=== PATIENT | female | born 1995 | race Two or more races ===

== ENCOUNTER 2020-10-25 17:15 | Emergency (ER) | payer OTHER, SELFPAY ==
[2020-10-25 17:55] VITALS: BP 130/68; PULSE 91; RESP 16; TEMP 36.4; O2SAT 100; BMI 28.3
--- NOTE | 2020-10-25 18:00 | US_ITS ---
EXAMINATION: US VENOUS ULTRASOUND WITH DOPPLER LOWER EXTREMITY, RIGHT CLINICAL INFORMATION: Pain. COMPARISON: None TECHNIQUE: Ultrasound of the deep veins is performed from the hip to the calf with compression sonography and color and pulse Doppler assessment. Spectral analysis with color-flow imaging is performed. FINDINGS: There is normal venous compression and respiratory variation and augmented flow. The visualized common femoral vein, superficial femoral vein, profunda femoral vein, popliteal vein, and the trifurcation region shows no evidence of deep venous thrombosis. There is no significant popliteal fossa cyst. If the patient's symptoms persist, followup ultrasound in 5 days 7 days might be of value to exclude proximal propagation from a non-visualized calf vein. US/US venous duplex LE RT IMPRESSION: No DVT demonstrated in the right lower extremity.
--- NOTE | 2020-10-25 18:00 | XR_ITS ---
EXAMINATION: 4 right foot series. Right ankle series. CLINICAL INFORMATION: Pain. COMPARISON: None TECHNIQUE: 4 views of the right foot including the ankle. 2 additional views of the right ankle. FINDINGS: Right foot: The bones joints and soft tissues are normal without fracture or degenerative change. Right ankle: Subtle lucency noted in the medial talar dome. Bones joints and soft tissues otherwise unremarkable. XR/XR foot RT min 3V IMPRESSION: Subtle lucency in the medial talar dome. This could reflect an area of osteochondritis dissecans. Consider follow-up imaging with MRI if felt clinically appropriate to more fully characterize
--- NOTE | 2020-10-25 18:00 | XR_ITS ---
EXAMINATION: 4 right foot series. Right ankle series. CLINICAL INFORMATION: Pain. COMPARISON: None TECHNIQUE: 4 views of the right foot including the ankle. 2 additional views of the right ankle. FINDINGS: Right foot: The bones joints and soft tissues are normal without fracture or degenerative change. Right ankle: Subtle lucency noted in the medial talar dome. Bones joints and soft tissues otherwise unremarkable. XR/XR ankle RT min 3V IMPRESSION: Subtle lucency in the medial talar dome. This could reflect an area of osteochondritis dissecans. Consider follow-up imaging with MRI if felt clinically appropriate to more fully characterize
--- NOTE | 2020-10-25 19:19 | ED.LOWEXIN ---
HPI - Extremity Injury (Lower) General Chief Complaint: Extremity Injury, Lower Stated Complaint: FOOT PAIN Time Seen by Provider: 10/25/20 18:00 Source: patient Mode of arrival: ambulatory Limitations: no limitations History of Present Illness HPI Narrative: Right ankle /foot pain radiating to the calf pain for past several weeks initially injured during fall at home [address]: home Relieving factors: nothing Other symptoms: none Related Data Previous Rx's Medication Instructions Recorded cyclobenzaprine 5 mg PO TID PRN #15 tab 10/25/20 ibuprofen 800 mg PO Q8H PRN #20 tab 10/25/20 methylprednisolone [Medrol] 4 mg PO DAILY #7 tab 10/25/20 Allergies Allergy/AdvReac Type Severity Reaction Status Date / Time No Known Allergies Allergy Verified 10/25/20 19:48 [No Known Allergies*] Review of Systems Review of Systems: Constitutional: No Weight loss, No Fever, No Chills, No Night Sweats, No Fatigue, No Malaise ENT/Mouth: No Hearing loss, No Ear Pain, No Nasal Congestion, No Sinus Pain Eyes: No Eye Pain, No Swelling, No Redness, No Foreign Body, No Discharge, No Vision Changes Cardiovascular: No Chest Pain, No SOB, No Dyspnea on Exertion, No Orthopnea, No Edema, No Palpitations Respiratory: No Cough, No Sputum, No Wheezing, No Smoke Exposure, No Dyspnea Gastrointestinal: No abdominal Pain Genitourinary: no irregular bleeding, No Dysuria, No Urinary Frequency, No Hematuria Musculoskeletal: No joint pain, No Myalgias, No Joint Swelling Skin: No Skin Lesions, No rash Neuro: No Weakness, No Numbness, No Paresthesias, No Loss of Consciousness Psych: No Social Issues Heme/Lymph: No Bruising, No Bleeding,No Lymphadenopathy Endocrine: No Polyuria, No Polydipsia, No Temperature Intolerance Yes all other systems are reviewed and are negative [facility] Past Medical History Medical History No known health problems Social History Social History Smoking Status: Never smoker Use of substances other than those prescribed or required for medical reasons: No Advance Directives: No Advance Directives Information Provided: Yes Physical Exam Vital Signs: Vital Signs: Last Vital Signs Temp 97.6 F 10/25/20 17:55 Pulse 80 10/25/20 19:33 Resp 16 10/25/20 19:33 BP 122/70 10/25/20 19:33 Pulse Ox 100 10/25/20 19:33 Body Mass Index 28.3 Reviewed Const: General: cooperative and healthy appearing; No acute distress or intoxicated appearing Nutritional Appearance: average body habitus Orientation/consciousness: patient oriented x3 HENMT: Head: Yes normal to inspection Ears: hearing grossly normal bilaterally Chest: Chest palpation & inspection: normal inspection of the chest Resp: Effort & Inspection: normal respiratory effort Cardio: Jugular venous distension: no JVD : General: Yes no CVA tenderness Back/Spine/Pelvis: Back: no CVA tenderness Skin: General skin exam: no rashes or lesions noted Neuro: General: patient oriented x3 Extrem: Other: Slight diffuse tender palpation not specifically over the ankle joint without any obvious ecchymosis, swelling, erythema. Full range of motion. Does report the pain radiates to the mid posterior calf. Squeeze test within normal limits. Positive Homans. General: Yes normal to inspection Course Course Course Narrative: X-ray chest ultrasound findings reviewed. Ernst wrap to right lower extremity will follow-up with orthopedics. MDM - Extremity Injury (Lower) Imaging Data Right lower extremity ultrasound: Radiologist's impression: [place] [id number] Ultrasound Report Signed Patient: Tyree Pham#: [id number] : 1995Acct:[id number] Age/Sex: 25 / FADM Date: 10/25/20 Loc: HO.ED Attending Dr: Ordering Physician: Scott Delacruz NP Date of Service: 10/25/20 Procedure(s): US venous duplex LE RT Accession Number(s): [id number] cc: Scott Delacruz NP~ EXAMINATION: US VENOUS ULTRASOUND WITH DOPPLER LOWER EXTREMITY, RIGHT CLINICAL INFORMATION: Pain. COMPARISON: None TECHNIQUE: Ultrasound of the deep veins is performed from the hip to the calf with compression sonography and color and pulse Doppler assessment. Spectral analysis with color-flow imaging is performed. FINDINGS: There is normal venous compression and respiratory variation and augmented flow. The visualized common femoral vein, superficial femoral vein, profunda femoral vein, popliteal vein, and the trifurcation region shows no evidence of deep venous thrombosis. There is no significant popliteal fossa cyst. If the patient's symptoms persist, followup ultrasound in 5 days 7 days might be of value to exclude proximal propagation from a non-visualized calf vein. US/US venous duplex LE RT IMPRESSION: No DVT demonstrated in the right lower extremity. Dictated By:JOSH JOHNSON MD Signed By:<Electronically signed by JOSH JOHNSON MD in OV>10/25/20 1855 DD/ 1800 TD/TT: Pharmacist Helper: TANYA right foot/ ankle x-ray: Radiologist's impression: [place] [id number] [place] [address] XRay Report Signed Patient: Tyree Pham#: [id number] : 1995Acct:[id number] Age/Sex: 25 / FADM Date: 10/25/20 Loc: .ED Attending Dr: Ordering Physician: Scott Delacruz NP Date of Service: 10/25/20 Procedure(s): XR foot RT min 3V Accession Number(s): [id number] cc: Scott Delacruz RATE AND COST ANALYST~ EXAMINATION: 4 right foot series. Right ankle series. CLINICAL INFORMATION: Pain. COMPARISON: None TECHNIQUE: 4 views of the right foot including the ankle. 2 additional views of the right ankle. FINDINGS: Right foot: The bones joints and soft tissues are normal without fracture or degenerative change. Right ankle: Subtle lucency noted in the medial talar dome. Bones joints and soft tissues otherwise unremarkable. XR/XR foot RT min 3V IMPRESSION: Subtle lucency in the medial talar dome. This could reflect an area of osteochondritis dissecans. Consider follow-up imaging with MRI if felt clinically appropriate to more fully characterize Dictated By:DANE RADFORD MD Signed By:<Electronically signed by DANE RADFORD MD in OV>10/25/20 1816 DD/ 1800 TD/TT: Pharmacist Helper: EBONY Discharge Plan Discharge Clinical Impression: Ankle sprain and strain Patient Disposition: Home, Self-Care Instructions: Ankle Sprain (ED) Additional Instructions: Ernst wrap for comfort Ice Elevate Take medication prescribed Follow-up with Orthopedics as discussed Return if any concerns or worsening symptoms Thank you Prescriptions: New cyclobenzaprine 10 mg tablet 5 mg PO TID PRN (Reason: muscle spasm) Qty: 15 RF: 0 methylprednisolone [Medrol] 4 mg tablet 4 mg PO DAILY Qty: 7 RF: 0 ibuprofen 800 mg tablet 800 mg PO Q8H PRN (Reason: pain) Qty: 20 RF: 0 Referrals: Marino Mcconnell MD [Physician] - 1 week Interventions: ED Discharge Assessment Last Done: 10/25/20 19:52 Discharge Date/Time: 10/25/20 19:53
[2020-10-25 19:33] VITALS: BP 122/70; PULSE 80; RESP 16; O2SAT 100
== END 2020-10-25 19:53 | disposition home or self-care (01) ==
PROVIDERS: Emergency Provider Internal Medicine; PCP Internal Medicine
DX: M79.671 Pain in right foot (principal); R60.0 Localized edema; Z79.899 Other long term (current) drug therapy
CPT/HCPCS: 73610; 73630; 93971; 99283

== ENCOUNTER 2020-10-27 14:29 | Outpatient (REF) | payer OTHER, SELFPAY ==
[2020-10-28 08:47] LABS: ~Hepatitis C Antibody Nonreactive (Nonreactive)
[2020-10-28 09:20] LABS: Syphilis Screen Nonreactive (Nonreactive)
[2020-10-28 09:32] LABS: HBsAGNum1 0.27 S/CO (0.00-0.99); HIV AB/AG Nonreactive (Nonreactive); HIV Num 1 0.09 S/CO (0.00-0.99); Hepatitis B Surface Antigen Negative (Negative)
[2020-11-25 16:14] LABS: CT PCR NOT DETECTED (Not Detect.); NG PCR NOT DETECTED (Not Detect.)
== END 2020-10-27 14:30 | disposition home or self-care (01) ==
LOC: HO.LAB 14:29
PROVIDERS: PCP Internal Medicine; Visit Provider Advanced Practice Midwife
DX: Z20.2 Contact with and (suspected) exposure to infections with a predominantly sexual mode of transmission (principal)
CPT/HCPCS: 86780; 86803; 87340; 87389; 87491; 87591; 88142

== ENCOUNTER 2020-11-25 10:01 | Outpatient (REF) | payer OTHER, SELFPAY ==
--- NOTE | 2020-11-25 10:05 | XR_ITS ---
EXAMINATION: XR ANKLE, RIGHT CLINICAL INFORMATION: Screening COMPARISON: Previous x-ray 10/25/2020 TECHNIQUE: AP, lateral, and mortise views of the right ankle. FINDINGS: Bone alignment is normal. No fracture or dislocation is seen. There is a small lucency in the medial talar dome measuring approximately 4 x 8 mm questionable for osteochondritis desiccans. This is similar to previous x-ray. Ankle mortise is otherwise normal. Soft tissues are normal. XR/XR ankle RT min 3V IMPRESSION: Small lucency in the medial dome of the talus again questionable for osteochondritis dissecans. Otherwise unremarkable exam.
== END 2020-11-25 10:02 | disposition home or self-care (01) ==
LOC: HO.XRAY 10:01
PROVIDERS: PCP Internal Medicine; Visit Provider Physician Assistant
DX: S93.401A Sprain of unspecified ligament of right ankle, initial encounter (principal)
CPT/HCPCS: 73610; 99202

== ENCOUNTER → 2020-12-09 16:09 | Outpatient (BNVA) | payer OTHER, SELFPAY | PROVIDERS: PCP Internal Medicine; Visit Provider Advanced Practice Midwife | DX: Z13.89 Encounter for screening for other disorder (principal) | CPT/HCPCS: 99212 ==

== ENCOUNTER 2020-12-26 17:53 | Outpatient (REF) | payer OTHER, SELFPAY ==
--- NOTE | ~2020-12-26 | MR_ITS ---
EXAMINATION: MRI ANKLE WITHOUT CONTRAST, RIGHT CLINICAL INFORMATION: Right ankle pain and swelling for 2 months. Injury after falling down stairs. Sprain of unspecified right ankle ligament. COMPARISON: None. TECHNIQUE: Multisequence MR images of the right ankle were obtained without contrast on a high-field strength scanner. FINDINGS: BONE AND ARTICULAR CARTILAGE: Full-thickness articular cartilage fissuring at the medial aspect of the talar dome with focal delamination measuring up to 0.6 cm in ML dimension. Prominent underlying subchondral cystic change and associated marrow edema throughout the talus. No evidence of fragmentation or instability. No additional abnormal marrow signal. ACHILLES TENDON: Normal. OTHER TENDONS: Intact. LIGAMENTS: Intact. JOINT FLUID AND SOFT TISSUES: Small tibiotalar joint effusion. Subcutaneous soft tissues are unremarkable. PLANTAR FASCIA: Normal. SINUS TARSI AND TARSAL TUNNEL: Normal. MR/MR ankle RT wo con IMPRESSION: Osteochondral lesion at the medial aspect of the talar dome including full-thickness articular cartilage fissuring with delamination measuring 0.6 cm in ML dimension. Underlying subchondral cystic change and associated marrow edema within the talus. No evidence of fragmentation or instability. Small tibiotalar joint effusion.
== END 2020-12-26 17:54 | disposition home or self-care (01) ==
LOC: HO.MRI 17:53
PROVIDERS: Visit Provider Physician Assistant
DX: S93.401A Sprain of unspecified ligament of right ankle, initial encounter (principal)
CPT/HCPCS: 73721

== ENCOUNTER → 2021-01-19 14:40 | Outpatient (BNVA) | payer OTHER, SELFPAY | PROVIDERS: PCP Internal Medicine; Visit Provider Physician Assistant | DX: M89.9 Disorder of bone, unspecified (principal); M94.9 Disorder of cartilage, unspecified | CPT/HCPCS: 99212 ==

== ENCOUNTER 2021-08-03 09:24 | Emergency (ER) | payer OTHER, SELFPAY ==
--- NOTE | ~2021-08-03 | US_ITS ---
EXAMINATION: US ABDOMEN LIMITED CLINICAL INFORMATION: Right upper quadrant and epigastric pain. COMPARISON: None TECHNIQUE: Real-time imaging of the right upper quadrant abdominal viscera. FINDINGS: PANCREAS: Normal. LIVER: Normal. The liver is normal in size. The liver contour is normal. Parenchymal echogenicity is normal. No focal hepatic lesion. There is no intrahepatic biliary duct dilatation seen. GALLBLADDER: Normal. The gallbladder is physiologically distended without evidence of stones, sludge, polyps, wall thickening or pericholecystic fluid. COMMON BILE DUCT: Normal in caliber measuring 0.6 cm in diameter. RIGHT KIDNEY: Normal. No hydronephrosis. No renal calculi or focal parenchymal lesions. The kidney measures 11 cm in maximum dimension. FREE FLUID: None. US/US abdomen limited IMPRESSION: Normal right upper quadrant ultrasound.
[2021-08-03 09:28] VITALS: BP 117/73; PULSE 105; RESP 12; TEMP 37; O2SAT 98; BMI 28.4
--- NOTE | 2021-08-03 09:34 | ED.ABDPAIN ---
HPI - Abdominal Pain General Chief Complaint: Abdominal Pain Stated Complaint: abd pain, vomiting Time Seen by Provider: 08/03/21 09:34 Source: patient Mode of arrival: ambulatory Limitations: no limitations History of Present Illness MD elicited complaint: abdominal pain Pertinent past history: none Onset (ago): day(s) (1) Pain Consistency: constant Location: epigastric and RUQ Severity: moderate Quality: cramping Radiation: none Migration to: no migration Exacerbating factors: eating Relieving factors: nothing Context: possible food poisoning (started after eating [employer]) Associated symptoms: nausea, vomiting and diarrhea Related Data Home Medications Medication Instructions Recorded Confirmed norgestimate 0.25 mg-ethinyl 1 tab PO DAILY 08/02/21 08/02/21 estradiol 35 mcg tablet (Sprintec (28)) Previous Rx's Medication Instructions Recorded citalopram 10 mg tablet 10 mg PO DAILY 30 Days #30 tab 08/02/21 ondansetron 4 mg disintegrating 4 mg PO Q8H PRN #20 tab 08/03/21 tablet Allergies Allergy/AdvReac Type Severity Reaction Status Date / Time No Known Allergies Allergy Verified 08/03/21 09:28 [No Known Allergies*] Review of Systems Review of Systems Constitutional : No Weight loss, No Fever, No Chills ENT/Mouth : No sore throat, No Rhinorrhea Eyes: No Swelling, No Redness Cardiovascular : No Chest Pain, No SOB, NoEdema Respiratory : No Cough, No Sputum, No Wheezing Gastrointestinal : Positive Nausea, Positive Vomiting, positive Diarrhea, positive abdominal Pain, No Hematochezia, No Melena Genitourinary : No Dysuria, No Urinary Frequency, No Hematuria, No Urgency Musculoskeletal : No joint pain, No Myalgias, No Joint Swelling Skin : No Skin Lesions, No rash Neuro : No Weakness, No Numbness, No Dizziness, No Headache Psych : No Anxiety/Panic, No Depression Heme/Lymph: No Bruising, No Lymphadenopathy Endocrine : No Polyuria, No Polydipsia All other systems reviewed and are negative. Physical Exam Vital Signs: Vital Signs: Last Vital Signs Temp 96.8 F 08/03/21 10:44 Pulse 81 08/03/21 10:44 Resp 15 08/03/21 10:44 BP 118/66 08/03/21 10:44 Pulse Ox 98 08/03/21 10:44 Body Mass Index 28.4 Appearance: Alert. Oriented X3. No acute distress. Eyes: Pupils equal, round and reactive to light. ENT: Pharynx normal. Neck: Normal inspection. Neck supple. CVS: Normal heart rate and rhythm. Pulses normal. Respiratory: No respiratory distress. Breath sounds normal. Abdomen: Soft and moderate RUQ ttp + contreras's no rebound Skin: Skin warm and dry. Normal skin color. Normal skin turgor. Extremities: No lower extremity edema. No calf ttp Neuro: Oriented X 3. No motor deficit. No sensory deficit. Course Course Course Narrative: labs negative stable workup can be DC home MDM - Abdominal Pain MDM Narrative Medical decision making narrative: 25 yo female with no sig PMH here with RUQ pain n/v/d after eating [employer] yesterday - at this time will need labs, IVF, supportive medications, US to evaluate GB - dispo per results and findings. Lab Data Result diagrams: 08/03/21 09:46 08/03/21 11:11 Labs: Lab Results 08/03/21 08/03/21 08/03/21 Range/Units 09:46 09:56 10:56 WBC 11.4 H (4.8-10.8) X10*3/uL RBC 4.50 (4.20-5.50) X10*6/uL Hgb 13.7 (12.0-16.0) g/dl Hct 40.9 (37-47) % MCV 90.9 (80-98) fL MCH 30.4 (27.0-33.0) pg MCHC 33.5 (31.0-35.0) g/dl RDW 12.4 (11.0-16.0) % Plt Count 243 (160-400) X10*3/uL MPV 11.3 (9.4-12.3) fL Immature Gran % (Auto) 0.4 (0.0-0.4) % Neut % (Auto) 88.1 H (45-73) % Lymph % (Auto) 6.3 L (20-40) % [place] % (Auto) 4.9 (2-11) % Eos % (Auto) 0.2 (0-4) % Baso % (Auto) 0.1 (0-2) % Lymph # (Auto) 0.7 L (1.2-4.9) X10*3/uL [place] # (Auto) 0.6 (0.1-1.2) X10*3/uL Eos # (Auto) 0.0 (0.0-0.4) X10*3/uL Baso # (Auto) 0.0 (0.0-0.2) X10*3/uL Abs Immat Gran (auto) 0.04 H (0.00-0.03) X10*3/uL Absolute Neuts (auto) 10.1 H (2.0-8.3) X10*3/uL Absolute Nucleated RBC 0.000 (0.0-0.012) X10*3/uL Nucleated RBC % (auto) 0.0 (0.0-0.2) /100WBC Sodium (135-145) mmol/L Potassium (3.3-5.1) mmol/L Chloride (96-108) mmol/L Carbon Dioxide (22-29) mmol/L Anion Gap (12-20) BUN (9-16) mg/dL Creatinine (0.5-1.4) mg/dL Estim Creat Clear Calc Estimated GFR Random Glucose (60-115) mg/dL Calcium (8.4-10.2) mg/dL Magnesium (1.6-2.6) mg/dL Total Bilirubin (0.0-1.0) mg/dL Direct Bilirubin (0.0-0.5) mg/dL AST (5-31) U/L ALT (0-31) U/L Alkaline Phosphatase (39-117) U/L Total Protein (6.5-8.0) g/dL Albumin (3.5-5.0) g/dL Lipase (8-78) U/L Urine Color YELLOW Urine Appearance HAZY Urine pH 6.5 (5.0-8.0) Ur Specific [place] <= 1.005 (1.005-1.025) Urine Protein NEG (NEG-TRACE) MG/DL Urine Glucose (UA) NEG (NEG) MG/DL Urine Ketones NEG (NEG) MG/DL Urine Blood NEG (NEG) Urine Nitrite NEG (NEG) Ur Leukocyte Esterase TRACE H (NEG) Urine RBC 0 (0) /HPF Urine WBC 1-4 (0-4) /HPF Ur Squamous Epith Cells 2+ /LPF Urine Bacteria 1+ /LPF Urine Mucus 1+ /LPF Urine Test (NEGATIVE) COVID-19 (MELISSA) Negative (Negative) COVID-19 Clin Com See Note 08/03/21 08/03/21 Range/Units 10:56 11:11 WBC (4.8-10.8) X10*3/uL RBC (4.20-5.50) X10*6/uL Hgb (12.0-16.0) g/dl Hct (37-47) % MCV (80-98) fL MCH (27.0-33.0) pg MCHC (31.0-35.0) g/dl RDW (11.0-16.0) % Plt Count (160-400) X10*3/uL MPV (9.4-12.3) fL Immature Gran % (Auto) (0.0-0.4) % Neut % (Auto) (45-73) % Lymph % (Auto) (20-40) % [place] % (Auto) (2-11) % Eos % (Auto) (0-4) % Baso % (Auto) (0-2) % Lymph # (Auto) (1.2-4.9) X10*3/uL [place] # (Auto) (0.1-1.2) X10*3/uL Eos # (Auto) (0.0-0.4) X10*3/uL Baso # (Auto) (0.0-0.2) X10*3/uL Abs Immat Gran (auto) (0.00-0.03) X10*3/uL Absolute Neuts (auto) (2.0-8.3) X10*3/uL Absolute Nucleated RBC (0.0-0.012) X10*3/uL Nucleated RBC % (auto) (0.0-0.2) /100WBC Sodium 136 (135-145) mmol/L Potassium 3.9 (3.3-5.1) mmol/L Chloride 104 (96-108) mmol/L Carbon Dioxide 25 (22-29) mmol/L Anion Gap 11 L (12-20) BUN 10 (9-16) mg/dL Creatinine 0.86 (0.5-1.4) mg/dL Estim Creat Clear Calc 102.0 Estimated GFR > 60 Random Glucose 113 (60-115) mg/dL Calcium 8.3 L (8.4-10.2) mg/dL Magnesium 1.6 (1.6-2.6) mg/dL Total Bilirubin 0.8 (0.0-1.0) mg/dL Direct Bilirubin 0.3 (0.0-0.5) mg/dL AST 9 (5-31) U/L ALT 11 (0-31) U/L Alkaline Phosphatase 27 L (39-117) U/L Total Protein 6.3 L (6.5-8.0) g/dL Albumin 4.0 (3.5-5.0) g/dL Lipase 31 (8-78) U/L Urine Color Urine Appearance Urine pH (5.0-8.0) Ur Specific [place] (1.005-1.025) Urine Protein (NEG-TRACE) MG/DL Urine Glucose (UA) (NEG) MG/DL Urine Ketones (NEG) MG/DL Urine Blood (NEG) Urine Nitrite (NEG) Ur Leukocyte Esterase (NEG) Urine RBC (0) /HPF Urine WBC (0-4) /HPF Ur Squamous Epith Cells /LPF Urine Bacteria /LPF Urine Mucus /LPF Urine Test NEGATIVE (NEGATIVE) COVID-19 (MELISSA) (Negative) COVID-19 Clin Com Discharge Plan Discharge Clinical Impression: Abdominal pain Qualifiers: Abdominal location: epigastric Qualified Code(s): R10.13 - Epigastric pain Vomiting Qualifiers: Vomiting type: unspecified Vomiting Intractability: non-intractable Nausea presence: with nausea Qualified Code(s): R11.2 - Nausea with vomiting, unspecified Patient Disposition: Home, Self-Care Instructions: Acute Nausea and Vomiting (ED), Abdominal Pain (ED) Additional Instructions: return to ED for any worsening symptoms or concerns bland foods, stay hydrated, avoid dairy for 2 to 3 days Prescriptions: New ondansetron 4 mg tablet,disintegrating 4 mg PO Q8H PRN (Reason: nausea and vomiting) Qty: 20 RF: 0 No Action norgestimate-ethinyl estradiol [Sprintec (28)] 0.25-35 mg-mcg tablet 1 tab PO DAILY RF: 0 citalopram 10 mg tablet 10 mg PO DAILY 30 Days Qty: 30 RF: 2 Stand Alone Forms: Work/School Release Interventions: ED Discharge Assessment Last Done: 08/03/21 12:15 Discharge Date/Time: 08/03/21 12:16 [facility] Past Medical History Attestation statement: The following information was validated with the patient. Medical History Anxiety Overweight (BMI 25.0-29.9) Surgical History History of tonsillectomy Family History Family History Maternal Grandmother Breast cancer Father Medical history unknown Mother Medical history unknown Maternal Grandfather No problems noted. Paternal Grandfather Cancer Brother In good health Brother In good health Social History Social History Housing: House Alcohol intake: never Patient Tobacco Use Status: Never used Tobacco Second Hand Smoke Exposure: No Use of substances other than those prescribed or required for medical reasons: No Advance Directives: No Patient : No service: No Current occupational status: employed Current occupation: [employer] Sexual orientation: Straight/Heterosexual Gender identity: Female
[2021-08-03 09:49] LABS: MANUAL DIFF FLAG NO
[2021-08-03] MEDS: 0.9 % Sodium Chloride 1,000 ML 999 ML IVCONT (09:52)
[2021-08-03] MEDS: Ketorolac Tromethamine 15 MG/ML VIAL 30 MG IVPUSH (09:53)
[2021-08-03] MEDS: ondansetron HCL 4 MG/2 ML VIAL IVPUSH (09:53)
[2021-08-03 09:55] LABS: Basophils Percent Auto 0.1 % (0-2); Eosinophils Percent Auto 0.2 % (0-4); Hematocrit 40.9 % (37-47); Hemoglobin 13.7 g/dl (12.0-16.0); Imm Gran Abs Auto 0.04 X10*3/uL (0.00-0.03); Imm Gran Pct Auto 0.4 % (0.0-0.4); Lymphocytes Absolute Auto 0.7 X10*3/uL (1.2-4.9); Lymphocytes Percent Auto 6.3 % (20-40); Mean Corpuscular HGB Conc 33.5 g/dl (31.0-35.0); Mean Corpuscular Hemoglobin 30.4 pg (27.0-33.0); Mean Corpuscular Volume 90.9 fL (80-98); Mean Platelet Volume 11.3 fL (9.4-12.3); Monocytes Absolute Auto 0.6 X10*3/uL (0.1-1.2); Monocytes Percent Auto 4.9 % (2-11); Neutrophils Absolute Auto 10.1 X10*3/uL (2.0-8.3); Neutrophils Percent Auto 88.1 % (45-73); Platelet Count 243 X10*3/uL (160-400); Red Cell Distribution Width 12.4 % (11.0-16.0); White Blood Count 11.4 X10*3/uL (4.8-10.8)
[2021-08-03 10:20] LABS: COVID-19 Test Negative (Negative); IDNOW Serial# 9DD0AD1C
[2021-08-03 10:44] VITALS: BP 118/66; PULSE 81; RESP 15; TEMP 36; O2SAT 98
[2021-08-03 11:16] LABS: UPreg QC Valid YES; Urine Pregnancy NEGATIVE (NEGATIVE)
[2021-08-03 11:24] LABS: Appearance Urine HAZY; Color Urine YELLOW; Glucose Urine UA NEG (NEG); Leukocyte Esterase Urine TRACE (NEG); Nitrite Urine NEG (NEG); PH 6.5 (5.0-8.0); Specific Gravity - Urine <= 1.005 (1.005-1.025); UACC Culture Trigger YES; Urine Blood NEG (NEG); Urine Ketones NEG (NEG); Urine Protein NEG (NEG-TRACE)
[2021-08-03 11:36] LABS: Alanine Aminotransferase 11 U/L (0-31); Alkaline Phosphatase 27 U/L (39-117); Anion Gap 11 (12-20); Aspartate Amino Transferase 9 U/L (5-31); Bilirubin Direct 0.3 mg/dL (0.0-0.5); Bilirubin Total 0.8 mg/dL (0.0-1.0); Blood Urea Nitrogen 10 mg/dL (9-16); Calcium 8.3 mg/dL (8.4-10.2); Carbon Dioxide 25 mmol/L (22-29); Chloride 104 mmol/L (96-108); Estimated Glomerular Filt Rate > 60; Glucose Random 113 mg/dL (60-115); Lipase 31 U/L (8-78); Magnesium 1.6 mg/dL (1.6-2.6); Potassium 3.9 mmol/L (3.3-5.1); Sodium 136 mmol/L (135-145); Total Protein 6.3 g/dL (6.5-8.0)
[2021-08-03 11:38] LABS: Bacteria Urine 1+ /LPF; Mucus Urine 1+ /LPF; RBC Urine 0 /HPF (0); Squamous Epithelial Cell Urine 2+ /LPF
== END 2021-08-03 12:16 | disposition home or self-care (01) ==
PROVIDERS: Emergency Provider Emergency Medicine; PCP Internal Medicine
DX: R10.13 Epigastric pain (principal); R11.2 Nausea with vomiting, unspecified; Z20.822 Contact with and (suspected) exposure to COVID-19; Z79.899 Other long term (current) drug therapy
CPT/HCPCS: 36415; 76705; 80048; 80076; 81001; 81025; 83690; 83735; 85025; 87086; 87635; 96361; 96374; 96375; 99284; J1885; J2405

== ENCOUNTER 2022-02-07 13:37 | Outpatient (REF) | payer OTHER, SELFPAY ==
--- NOTE | ~2022-02-07 | XR_ITS ---
EXAMINATION: XR CHEST CLINICAL INFORMATION: Chronic cough. COMPARISON: None TECHNIQUE: Frontal view of the chest was obtained. FINDINGS: There is a 0.6 cm oval high density nodule projecting over the left upper lung. Possible additional nodule measuring 0.3 cm projecting over the right upper lung, however, this could also represent a vessel on end. The lungs are otherwise clear. No pleural effusion or pneumothorax. Heart size is normal. No acute osseous abnormality. XR/XR chest 1V IMPRESSION: Left upper lung calcified granuloma. There is an additional smaller density projecting over the right upper lung which most likely represents either a vessel on end or an additional small calcified granuloma.
[2022-02-07 14:30] LABS: MANUAL DIFF FLAG NO
[2022-02-07 14:39] LABS: Basophils Percent Auto 0.3 % (0-2); Eosinophils Absolute Auto 0.1 X10*3/uL (0.0-0.4); Eosinophils Percent Auto 0.9 % (0-4); Hematocrit 37.6 % (37.0-47.0); Hemoglobin 12.1 g/dl (12.0-16.0); Imm Gran Abs Auto 0.04 X10*3/uL (0.00-0.03); Imm Gran Pct Auto 0.4 % (0.0-0.4); Lymphocytes Percent Auto 17.3 % (20-40); Mean Corpuscular HGB Conc 32.2 g/dl (31.0-35.0); Mean Corpuscular Hemoglobin 30.2 pg (27.0-33.0); Mean Corpuscular Volume 93.8 fL (80.0-98.0); Mean Platelet Volume 11.1 fL (9.4-12.3); Monocytes Absolute Auto 0.8 X10*3/uL (0.1-1.2); Monocytes Percent Auto 7.2 % (2-11); Neutrophils Absolute Auto 8.4 x10*3/uL (2.0-8.3); Neutrophils Percent Auto 73.9 % (45-73); Platelet Count 293 X10*3/uL (160-400); Red Blood Count 4.01 X10*6/uL (4.20-5.50); Red Cell Distribution Width 12.9 % (11.0-16.0); White Blood Count 11.4 X10*3/uL (4.8-10.8)
[2022-02-07 15:27] LABS: Syphilis Screen Nonreactive (Nonreactive)
[2022-02-07 15:33] LABS: Appearance Urine CLEAR; Color Urine YELLOW; Glucose Urine UA NEG (NEG); Leukocyte Esterase Urine 1+ (NEG); Nitrite Urine NEG (NEG); UACC Culture Trigger YES; Urine Blood 3+ (NEG); Urine Ketones NEG (NEG); Urine Protein NEG (NEG-TRACE)
[2022-02-07 15:42] LABS: TSH reflex Free T4 0.39 uIU/mL (0.32-4.0)
[2022-02-07 15:42] LABS: Bacteria Urine TRACE /LPF; Squamous Epithelial Cell Urine 2+ /LPF
[2022-02-08 05:27] LABS: CT PCR NOT DETECTED (Not Detect.); NG PCR NOT DETECTED (Not Detect.)
[2022-02-08 09:22] LABS: HBc Num1 0.05 S/CO (0.00-0.79); Hepatitis B Core Antibody Nonreactive (Nonreactive)
[2022-02-08 09:38] LABS: HIV AB/AG Nonreactive (Nonreactive); HIV Num 1 0.05 S/CO (0.00-0.99); ~Hepatitis C Antibody Nonreactive (Nonreactive)
[2022-02-08 13:01] LABS: BV Int Neg Control Negative (Negative); BV Int Pos Control Positive (Positive)
[2022-02-08 14:49] LABS: Vitamin D 25-OH Total 17.1 ng/mL (>30)
== END 2022-02-07 13:38 | disposition home or self-care (01) ==
LOC: HO.LAB 13:37
PROVIDERS: Absent Provider Nurse Practitioner Acute Care; PCP Internal Medicine; Visit Provider Advanced Practice Midwife
DX: Z01.411 Encounter for gynecological examination (general) (routine) with abnormal findings (principal); Z11.4 Encounter for screening for human immunodeficiency virus [HIV]; N89.8 Other specified noninflammatory disorders of vagina; N90.89 Other specified noninflammatory disorders of vulva and perineum; Z20.2 Contact with and (suspected) exposure to infections with a predominantly sexual mode of transmission; E66.3 Overweight; E55.9 Vitamin D deficiency, unspecified; R05.3 Chronic cough
CPT/HCPCS: 36415; 71045; 81001; 82306; 84443; 85025; 86704; 86780; 86803; 87086; 87389; 87480; 87491; 87510; 87591; 87660

== ENCOUNTER 2022-02-23 14:26 | Outpatient (REF) | payer OTHER, SELFPAY ==
[2022-02-23 15:24] LABS: MANUAL DIFF FLAG NO
[2022-02-23 15:32] LABS: Basophils Percent Auto 0.2 % (0-2); Eosinophils Percent Auto 0.4 % (0-4); Hematocrit 39.6 % (37.0-47.0); Hemoglobin 12.8 g/dl (12.0-16.0); Imm Gran Abs Auto 0.02 X10*3/uL (0.00-0.03); Imm Gran Pct Auto 0.2 % (0.0-0.4); Lymphocytes Absolute Auto 2.9 X10*3/uL (1.2-4.9); Mean Corpuscular HGB Conc 32.3 g/dl (31.0-35.0); Mean Corpuscular Hemoglobin 30.3 pg (27.0-33.0); Mean Corpuscular Volume 93.6 fL (80.0-98.0); Mean Platelet Volume 11.1 fL (9.4-12.3); Monocytes Absolute Auto 0.5 X10*3/uL (0.1-1.2); Monocytes Percent Auto 5.9 % (2-11); Neutrophils Absolute Auto 5.5 x10*3/uL (2.0-8.3); Neutrophils Percent Auto 61.3 % (45-73); Platelet Count 276 X10*3/uL (160-400); Red Blood Count 4.23 X10*6/uL (4.20-5.50); Red Cell Distribution Width 12.1 % (11.0-16.0)
== END 2022-02-23 14:27 | disposition home or self-care (01) ==
LOC: HO.LAB 14:26
PROVIDERS: PCP Internal Medicine; Visit Provider Internal Medicine Pulmonary Disease
DX: Z91.09 Other allergy status, other than to drugs and biological substances (principal); U09.9 Post COVID-19 condition, unspecified; R05.3 Chronic cough; K21.9 Gastro-esophageal reflux disease without esophagitis
CPT/HCPCS: 36415; 82785; 85025; 86003; 99202

== ENCOUNTER 2022-03-21 16:24 | Outpatient (REF) | payer OTHER, MEDICAID, SELFPAY ==
--- NOTE | ~2022-03-21 | CT_ITS ---
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 COMPARISON: Chest x-ray dated 02/07/2022 TECHNIQUE: Multidetector volumetric CT imaging of the chest was done. Axial MIP volume rendering provided. Sagittal and coronal reformatted images were obtained. This CT examination was performed using dose optimization techniques as appropriate, variously including the following: *Automated exposure control *Adjustment of mA and/or kV according to patient size (this includes techniques or standardized protocols for targeted exams where dose is matched to indication/reason for exam; i.e. extremities or head) *Use of iterative reconstruction technique DLP: 163 mGy-cm FINDINGS: LUNGS: Minimal diffuse bronchial wall thickening without bronchiectasis. No parenchymal consolidation, pneumonitis or evidence of interstitial lung disease. There is a 5 mm calcified granuloma within the posterior segment of left upper lobe. No suspicious pulmonary nodules. MEDIASTINUM: Normal heart size. No pericardial effusion. Great vessels normal caliber. No mediastinal, hilar or supraclavicular lymphadenopathy or normal thyroid gland. PLEURA: There is no pleural effusion. No pleural mass or thickening. CHEST WALL/AXILLA: No lymphadenopathy. UPPER ABDOMEN: Unremarkable. OSSEOUS STRUCTURES: Unremarkable. CT/CT chest wo con IMPRESSION: Minimal diffuse bronchial thickening as can be seen with asthma or mild bronchitis. Exam otherwise unremarkable.
== END 2022-03-21 16:25 | disposition home or self-care (01) ==
LOC: HO.CT 16:24
PROVIDERS: Visit Provider Internal Medicine Pulmonary Disease
DX: U09.9 Post COVID-19 condition, unspecified (principal)
CPT/HCPCS: 71250

== ENCOUNTER 2022-05-03 15:42 | Outpatient (REF) | payer OTHER, SELFPAY ==
--- NOTE | 2022-05-03 17:21 | PFT_ITS ---
INDICATION: Asthma. SPIROMETRY: FEV1 to FVC of 88% with an FEV1 of 3.79 L, which is 109% predicted. FVC of 4.31 L, which is 107% predicted. No significant response to bronchodilators noted. Maximum voluntary ventilation 96% predicted. LUNG VOLUMES: Total lung capacity 88% predicted with expiratory reserve volume of 86% predicted. DIFFUSION CAPACITY: DLCO 95% predicted. COMPARISONS: None. INTERPRETATION: No obstructive nor restrictive ventilatory defects identified. No significant response to bronchodilators noted. Normal maximum voluntary ventilation. Normal lung volumes and normal diffusion capacity. The flow volume loop appears to have slight plateauing of 1 of the flow volume loops, but otherwise within normal limits. If asthma is in differential, a methacholine challenge may be helpful in assessing for hyper-reactive airways. Otherwise clinical correlation warranted. Elfego Phillips MD MR/MODL / [id number]
== END 2022-05-03 15:43 | disposition home or self-care (01) ==
LOC: HO.RESP 15:42
PROVIDERS: PCP Internal Medicine; Visit Provider Internal Medicine Pulmonary Disease
DX: J45.909 Unspecified asthma, uncomplicated (principal); Z79.899 Other long term (current) drug therapy
CPT/HCPCS: 94060; 94727; 94729

== ENCOUNTER 2022-09-07 09:11 | Outpatient (REF) | payer OTHER, MEDICAID, SELFPAY ==
[2022-09-07 15:47] LABS: CT PCR DETECTED (Not Detect.); NG PCR NOT DETECTED (Not Detect.)
[2022-09-08 11:51] LABS: BV Int Neg Control Negative (Negative); BV Int Pos Control Positive (Positive)
== END 2022-09-07 09:12 | disposition home or self-care (01) ==
LOC: HO.LNP 09:11
PROVIDERS: Visit Provider Advanced Practice Midwife
DX: Z20.2 Contact with and (suspected) exposure to infections with a predominantly sexual mode of transmission (principal)
CPT/HCPCS: 87480; 87491; 87510; 87591; 87660

== ENCOUNTER 2022-10-16 09:54 | Emergency (ER) | payer OTHER, MEDICAID, SELFPAY ==
[2022-10-16 10:25] VITALS: BP 142/91; PULSE 93; RESP 18; TEMP 36.6; O2SAT 98; BMI 27.1
--- NOTE | 2022-10-16 11:50 | ED.NAVMDI ---
HPI - Nausea/Vomiting/Diarrhea General Chief complaint: Nausea/Vomiting/Diarrhea Stated complaint: Vomiting Headache Time Seen by Provider: 10/16/22 11:28 Source: patient Mode of arrival: ambulatory Limitations: no limitations History of Present Illness HPI Narrative: This is a 27 years old female presented to the emergency department the chief complaint nausea vomiting and diarrhea times 24 hours, she has history of anxiety panic attack. Denies any fever chills. MD elicited complaint: nausea, vomiting and diarrhea Onset (ago): day(s) (1) Description of diarrhea: watery Associated nausea: Yes Associated abdominal pain: No Quality: cramping Relieving factors: none Related Data Previous Rx's Medication Instructions Recorded fluticasone propionate 50 1 spray intranasal BID #16 grams 02/19/22 mcg/actuation nasal spray,suspension omeprazole 40 mg capsule,delayed 40 mg PO DAILY 30 days #30 caps 02/23/22 release fluticasone propionate 115 2 puff inhalation Q12H 30 days #1 02/26/22 mcg-salmeterol 21 mcg/actuation ea HFA inhaler (Advair HFA) escitalopram oxalate 5 mg tablet 5 mg PO DAILY #30 tabs 04/11/22 hydroxyzine HCl 25 mg tablet 25 mg PO BEDTIME PRN anxiety #20 04/11/22 tabs albuterol sulfate 90 mcg/actuation 2 puff inhalation Q6H PRN 04/18/22 aerosol inhaler shortness of breath or wheezing #8.5 grams cholecalciferol (vitamin D3) 50 50 mcg PO DAILY #90 tabs 07/13/22 mcg (2,000 unit) tablet doxycycline hyclate 100 mg capsule 100 mg PO BID 7 days #14 caps 09/10/22 metronidazole 0.75 % (37.5 mg/5 1 appful vaginal BEDTIME 5 days 09/10/22 gram) vaginal gel #70 grams Allergies Allergy/AdvReac Type Severity Reaction Status Date / Time No Known Allergies Allergy Verified 09/07/22 08:45 [No Known Allergies*] Review of Systems Constitutional: Constitutional: Reports no additional constitutional complaints ENT: Reports system reviewed and no additional complaints, except as documented Cardiovascular: Cardiovascular: Reports no additional cardiovascular complaints Respiratory: Respiratory: Reports no additional respiratory complaints Gastrointestinal: Gastrointestinal: Reports nausea and Reports vomiting PMFSH Past Medical History Medical History Anxiety Overweight (BMI 25.0-29.9) Surgical History History of tonsillectomy Family History Family History Maternal Grandmother Breast cancer Father Medical history unknown Mother Medical history unknown Maternal Grandfather No problems noted. Paternal Grandfather Cancer Colon cancer Brother In good health Brother In good health Social History Social History Housing: House Alcohol intake: never Patient Tobacco Use Status: Never used Tobacco Second Hand Smoke Exposure: No Advance Directives: No Advance Directives Information Provided: Yes service: No Current occupational status: employed Current occupation: [employer] Sexual orientation: Straight/Heterosexual Gender identity: Female Cognitive needs: No Hearing needs: No Vision needs: No Physical Exam Vital Signs: Vital Signs: Last Vital Signs Temp 98.2 F 10/16/22 12:03 Pulse 79 10/16/22 15:04 Resp 16 10/16/22 15:04 BP 112/71 10/16/22 15:04 Pulse Ox 100 10/16/22 15:04 O2 Del Method 10/16/22 15:04 BMI result Body Mass Index 27.1 Const: General: cooperative Nutritional Appearance: well nourished HEENT: Head: Yes normal to inspection Face and sinus: Yes normal facial exam Mouth: Normal oral and palatal mucosa present Throat: Yes posterior oropharynx normal Neck: Neck: Yes normal visual inspection Chest: Chest palpation & inspection: normal inspection of the chest Resp: Effort & Inspection: normal respiratory effort Cardio: Jugular venous distension: no JVD Palpation: normal PMI Rhythm: regular rhythm GI: Inspection: Yes normal to inspection Palpation (GI): Soft to palpation, not firm, nontender and no guarding Auscultation: normal bowel sounds Skin: General skin exam: no rashes or lesions noted and elasticity normal Course Reevaluation(s) Reevaluation #1: I RE-EXAMINED THE PATIENT 15:10 A SHE IS DOING MUCH BETTER SHE IS ASYMPTOMATIC SHE HAD NO NAUSEA SHE IS TOLERATING P.O. WELL, AT THIS POINT WILL DISCHARGE THE Medications Administered Discontinued Medications Generic Name Dose Route Start Last Admin Trade Name Freq PRN Reason Stop Dose Admin Sodium Chloride 1,000 mls @ 999 mls/hr 10/16/22 12:00 10/16/22 13:35 Ns IVCONT 10/16/22 13:00 Infused .Q1H1M JASSI Infusion MDM - Nausea/Vomiting/Diarrhea Lab Data Result diagrams: 10/16/22 12:27 10/16/22 12:27 Labs: Lab Results 10/16/22 10/16/22 Range/Units 12: 12:27 WBC 8.4 (4.8-10.8) X10*3/uL RBC 4.84 (4.20-5.50) X10*6/uL Hgb 14.6 (12.0-16.0) g/dl Hct 44.1 (37.0-47.0) % MCV 91.1 (80.0-98.0) fL MCH 30.2 (27.0-33.0) pg MCHC 33.1 (31.0-35.0) g/dl RDW 12.3 (11.0-16.0) % Plt Count 242 (160-400) X10*3/uL MPV 10.5 (9.4-12.3) fL Immature Gran % (Auto) 0.4 (0.0-0.4) % Neut % (Auto) 84.7 H (45-73) % Lymph % (Auto) 7.3 L (20-40) % [place] % (Auto) 6.7 (2-11) % Eos % (Auto) 0.5 (0-4) % Baso % (Auto) 0.4 (0-2) % Lymph # (Auto) 0.6 L (1.2-4.9) X10*3/uL [place] # (Auto) 0.6 (0.1-1.2) X10*3/uL Eos # (Auto) 0.0 (0.0-0.4) X10*3/uL Baso # (Auto) 0.0 (0.0-0.2) X10*3/uL Abs Immat Gran (auto) 0.03 (0.00-0.03) X10*3/uL Absolute Neuts (auto) 7.1 (2.0-8.3) x10*3/uL Absolute Nucleated RBC 0.000 (0.0-0.012) X10*3/uL Nucleated RBC % (auto) 0.0 (0.0-0.2) /100WBC Sodium 137 (135-145) mmol/L Potassium 4.2 (3.3-5.1) mmol/L Chloride 101 (96-108) mmol/L Carbon Dioxide 27 (22-29) mmol/L Anion Gap 13 (12-20) BUN 10 (9-16) mg/dL Creatinine 0.85 (0.5-1.4) mg/dL Estim Creat Clear Calc 102.7 Estimated GFR > 60 Random Glucose 108 (60-115) mg/dL Calcium 9.3 D (8.4-10.2) mg/dL Total Bilirubin 0.4 (0.0-1.0) mg/dL AST 40 H D (5-31) U/L ALT 37 H (0-31) U/L Alkaline Phosphatase 43 D (39-117) U/L Total Protein 7.3 (6.5-8.0) g/dL Albumin 4.4 (3.5-5.0) g/dL Beta HCG, Quant < 2 mIU/mL Discharge Plan Discharge Clinical Impression: Vomiting affecting , antepartum Instructions: Acute Nausea and Vomiting (ED) Prescriptions: No Action fluticasone propionate 50 mcg/actuation spray,suspension 1 spray intranasal BID Qty: 16 0RF Rx Instructions: administer into each nostril Advair HFA 115-21 mcg/actuation HFA aerosol inhaler 2 puff inhalation Q12H 30 Days Qty: 1 6RF albuterol sulfate 90 mcg/actuation HFA aerosol inhaler 2 puff inhalation Q6H PRN (Reason: shortness of breath or wheezing) Qty: 8.5 0RF cholecalciferol (vitamin D3) 50 mcg (2,000 unit) tablet 50 mcg PO DAILY Qty: 90 3RF metronidazole 0.75 % (37.5mg/5 gram) gel 1 appful vaginal BEDTIME 5 Days Qty: 70 0RF doxycycline hyclate 100 mg capsule 100 mg PO BID 7 Days Qty: 14 0RF escitalopram oxalate 5 mg tablet 5 mg PO DAILY Qty: 30 2RF hydroxyzine HCl 25 mg tablet 25 mg PO BEDTIME PRN (Reason: anxiety) Qty: 20 0RF omeprazole 40 mg capsule,delayed release(DR/EC) 40 mg PO DAILY 30 Days Qty: 30 3RF
[2022-10-16 12:03] VITALS: BP 110/72; PULSE 81; RESP 16; TEMP 36.8; O2SAT 98
[2022-10-16] MEDS: 0.9 % Sodium Chloride 1,000 ML 999 ML IVCONT (12:25)
[2022-10-16 12:34] LABS: MANUAL DIFF FLAG NO
[2022-10-16 12:37] LABS: Basophils Percent Auto 0.4 % (0-2); Eosinophils Percent Auto 0.5 % (0-4); Hematocrit 44.1 % (37.0-47.0); Hemoglobin 14.6 g/dl (12.0-16.0); Imm Gran Abs Auto 0.03 X10*3/uL (0.00-0.03); Imm Gran Pct Auto 0.4 % (0.0-0.4); Lymphocytes Absolute Auto 0.6 X10*3/uL (1.2-4.9); Lymphocytes Percent Auto 7.3 % (20-40); Mean Corpuscular HGB Conc 33.1 g/dl (31.0-35.0); Mean Corpuscular Hemoglobin 30.2 pg (27.0-33.0); Mean Corpuscular Volume 91.1 fL (80.0-98.0); Mean Platelet Volume 10.5 fL (9.4-12.3); Monocytes Absolute Auto 0.6 X10*3/uL (0.1-1.2); Monocytes Percent Auto 6.7 % (2-11); Neutrophils Absolute Auto 7.1 x10*3/uL (2.0-8.3); Neutrophils Percent Auto 84.7 % (45-73); Platelet Count 242 X10*3/uL (160-400); Red Blood Count 4.84 X10*6/uL (4.20-5.50); Red Cell Distribution Width 12.3 % (11.0-16.0); White Blood Count 8.4 X10*3/uL (4.8-10.8)
[2022-10-16 12:57] LABS: Alanine Aminotransferase 37 U/L (0-31); Albumin Level 4.4 g/dL (3.5-5.0); Alkaline Phosphatase 43 U/L (39-117); Anion Gap 13 (12-20); Aspartate Amino Transferase 40 U/L (5-31); Bilirubin Total 0.4 mg/dL (0.0-1.0); Blood Urea Nitrogen 10 mg/dL (9-16); Calcium 9.3 mg/dL (8.4-10.2); Carbon Dioxide 27 mmol/L (22-29); Chloride 101 mmol/L (96-108); Creatinine Clr Calc Pharmacy 102.7; Estimated Glomerular Filt Rate > 60; Glucose Random 108 mg/dL (60-115); HCG Quantitative < 2 mIU/mL; Potassium 4.2 mmol/L (3.3-5.1); Sodium 137 mmol/L (135-145); Total Protein 7.3 g/dL (6.5-8.0)
[2022-10-16 15:04] VITALS: BP 112/71; PULSE 79; RESP 16; O2SAT 100
== END 2022-10-16 15:56 | disposition home or self-care (01) ==
PROVIDERS: Emergency Provider Emergency Medicine; PCP Internal Medicine
DX: R11.2 Nausea with vomiting, unspecified (principal); R51.9 Headache, unspecified; Z79.899 Other long term (current) drug therapy
CPT/HCPCS: 36415; 80053; 84702; 85025; 96360; 99283; 99284

== ENCOUNTER 2023-02-01 15:28 | Outpatient (REF) | payer OTHER, MEDICAID, SELFPAY ==
[2023-02-02 05:47] LABS: CT PCR NOT DETECTED (Not Detect.); NG PCR NOT DETECTED (Not Detect.)
== END 2023-02-01 15:29 | disposition home or self-care (01) ==
LOC: HO.LNP 15:28
PROVIDERS: PCP Internal Medicine; Visit Provider Advanced Practice Midwife
DX: Z20.2 Contact with and (suspected) exposure to infections with a predominantly sexual mode of transmission (principal)
CPT/HCPCS: 0353U

== ENCOUNTER → 2023-02-11 14:46 | Outpatient (BNVA) | payer OTHER, SELFPAY | PROVIDERS: PCP Internal Medicine; Visit Provider Advanced Practice Midwife | DX: Z30.430 Encounter for insertion of intrauterine contraceptive device (principal) | CPT/HCPCS: 58300; 58301; 81025; J7296 ==

== ENCOUNTER 2023-02-18 15:47 | Outpatient (AMB) | payer OTHER, SELFPAY ==
[2023-02-18 15:58] VITALS: BP 112/70; PULSE 77; TEMP 36.1; O2SAT 99; BMI 28.7
--- NOTE | 2023-02-18 15:58 | MHC.PC.OV ---
Vital Signs 02/18/23 15:58 Height 5 ft 6 in Weight 178 lb BMI 28.7 BP 112/70 Blood Pressure Location Lt brachial Position Sitting Pulse 77 Pulse Source Pulse Oximeter Temp 97 F Temp Source Skin Pulse Oximetry (%) 99 Oxygen Delivery Method Room Air Intake Visit Reasons: PTSD/anxiety, insomnia, GERD Intake Note: Patient is here for a follow up on her PTSD/ Anxiety, Insomnia and GERD. Sql Report Writer Required: No Accompanied by: Self / Same As Patient Allergies No Known Allergies [No Known Allergies*] Allergy (Verified 11/29/23 16:42) Tobacco use date assessed: 02/18/23 HPI PTSD/anxiety, insomnia, GERD HPI Details Patient comes in today for her follow up visit States that she has been experiencing increased headaches since 10 am this morning Relates that she has been experiencing increased headaches daily lately - (+) Hx of migraine headaches Notes (+) photophobia and occasional nausea associated with her headaches; denies any vomiting She denies any dizziness Denies any chest pains, no SOB No abdominal pain and no change in bowel habits noted Adds that she has been having trouble sleeping at night lately even with her current 1 mg Prazosin States that she was sleeping better for a while when she was started on Prazosin a few months ago but its effect seems to have decreased lately States that she has also been experiencing increased anxiety lately and that her Sertraline 25 mg does not seem to be helping much recently [facility] Medical History Vitamin D deficiency Allergic rhinitis Migraine Asthma Anxiety Overweight (BMI 25.0-29.9) Surgical History History of tonsillectomy Family History Maternal Grandmother Breast cancer Father Medical history unknown Mother Medical history unknown Maternal Grandfather No problems noted. Paternal Grandfather Cancer Colon cancer Brother In good health Brother In good health Social History Housing: House Alcohol intake: current Alcohol intake frequency: holidays/special occasions only Patient Tobacco Use Status: Never used Tobacco e-Cigarette/Vaping Use: Never Used Second Hand Smoke Exposure: No service: No Current occupational status: employed Current occupation: [employer] Sexual orientation: Straight/Heterosexual Gender identity: Female Cognitive needs: No Hearing needs: No Vision needs: No Female Reproductive History Menstrual Age of Menarche: 12 Questionnaire PHQ-9 Over the last 2 weeks, how often have you been bothered by any of the following problems? 1. Little interest or pleasure in doing things: nearly every day 2. Feeling down, depressed, or hopeless: nearly every day 3. Trouble falling or staying asleep, or sleeping too much: nearly every day 4. Feeling tired or having little energy: nearly every day 5. Poor appetite or overeating: nearly every day 6. Feeling bad about yourself - or that you are a failure or have let yourself or your family down: nearly every day 7. Trouble concentrating on things, such as reading the newspaper or watching television: nearly every day 8. Moving or speaking so slowly that other people could have noticed. Or the opposite - being so fidgety or restless that you have been moving around a lot more than usual: nearly every day 9. Thoughts that you would be better off or of hurting yourself in some way: not at all Total score: 24 Depression Screening Interpretation: Positive Depression Screening Follow-up: Existing condition and In treatment 89779 - PHQ-9 Billing: Yes Source: Developed by Drs. Jacky Ledesma, Matilda Portillo, Sanya Contreras and colleagues, with an educational mukund from [employer]. Thrive Questionnaire Declines Thrive assessment: No Date Thrive assessed: 02/18/23 I am a: Patient What is your living situation today?: I have a steady place to live Within the past 12 months, did the food you bought not last and you didn't have the money to get more?: Never true Within the past 12 months, did you worry whether your food would run out before you got money to buy more?: Never true Do you have trouble paying for medicines?: No Do you have trouble getting transportation to medical appointments?: No Do you have trouble paying your heating and electricity bill?: No Do you have trouble taking care of your child, family member or friend?: No Do you have trouble with day-to-day activities such as bathing, preparing meals, shopping, managing finances, etc.?: No Are you currently unemployed and looking for a job?: No Are you interested in more education?: No Currently or been in a relationship where the following occur: no concerns reported AUDIT C Alcohol Use Questionnaire (AUDIT-C) 1. How often do you have a drink containing alcohol?: Never 3. How often do you have six or more drinks on one occasion?: Never Total Score: 0 Score Reviewed/Action Taken: Yes PHI-7 AMB Questionnaire PHI-7 Date PHI - 7 assessed: 02/18/23 Feeling nervous, anxious, or on edge: 1 = Several days Not being able to stop or control worryin = Several days Worrying too much about different things: 0 = Not at all Trouble relaxin = Not at all Being so restless that it is hard to sit still: 0 = Not at all Becoming easily annoyed or irritable: 0 = Not at all Feeling afraid as if something awful might happen: 0 = Not at all Total PHI-7 score (0-4 normal; 5-9 mild; 10-14 moderate; 15-21 severe): 2 Source: Developed by Drs. Jacky Ledesma, Matilda Portillo, Sanya Contreras and colleagues, with an educational mukund from [employer]. Review of Systems Const Denies chills, Reports difficulty sleeping, Reports fatigue, Denies fever(s) and Reports headache(s) (increasing lately) ENT Denies dysphagia, Denies dizziness, Denies otalgia, Reports headache(s) (increasing lately), Denies neck pain, Denies odynophagia and Denies sore throat Card Denies chest pain, Denies rapid heart rate, Denies irregular heart rhythm, Denies palpitations and Denies dyspnea Resp Denies chest congestion, Denies cough, Denies dyspnea and Denies wheezing GI Denies abdominal pain, Denies constipation, Denies dysphagia, Denies heartburn, Denies diarrhea, Denies nausea, Denies odynophagia and Denies vomiting Denies urinary frequency, Denies dysuria, Denies urinary incontinence and Denies urinary urgency Musc Denies back pain, Denies arthralgias and Denies neck pain Skin/Breast Denies rash Neuro Denies dizziness, Reports headache(s) (increasing lately) and Denies paresthesias Psych Reports anxiety and Reports depression Endo Reports fatigue and Denies palpitations Iban/Lymph Denies easy bruising Aller/Immun Denies wheezing Physical exam (Primary Care) Vital Signs: Last Vital Signs Temp 97 F 02/18/23 15:58 Pulse 77 02/18/23 15:58 BP 112/70 02/18/23 15:58 Pulse Ox 99 02/18/23 15:58 Oxygen Delivery Method Room Air 02/18/23 15:58 BMI result Body Mass Index 28.7 Tobacco/Smoking Status: Tobacco use Status Tobacco use date assessed 02/18/23 02/18/23 16:04 Patient Tobacco Use Status Never used Tobacco 02/18/23 16:04 PHQ-9: PHQ-9 Score PHQ-9: Total score 24 02/18/23 16:18 Depression Screening Interpretation: Positive Depression Screening Follow-up: Existing condition and In treatment Thrive Assessment: Date of Thrive Assessment Date Thrive assessed 02/18/23 02/18/23 16:04 Currently or been in a relationship where the following occur: no concerns reported Const General: no acute distress and alert HENMT Ears: TM's normal bilaterally and EAC's normal Throat: Yes posterior oropharynx normal and Yes tonsils normal (no TP congestion) Neck Neck: Yes no lymphadenopathy and Yes supple Thyroid: Thyroid normal Resp Auscultation: clear to auscultation bilaterally, no rales and no wheezes Cardio Rate: regular rate Rhythm: regular rhythm Heart sounds: no murmurs GI Palpation (GI): Soft to palpation and nontender Auscultation: normal bowel sounds General: Yes no CVA tenderness Back/Spine/Pelvis Back: no CVA tenderness Skin Rashes: no rashes Extrem General: Yes no clubbing, cyanosis or edema Assessment and Plan Assessment & Plan (1) Migraine: Code(s): G43.909 - Migraine, unspecified, not intractable, without status migrainosus Qualifiers: Migraine type: unspecified Status migrainosus presence: without status migrainosus Intractability: not intractable Qualified Code(s): G43.909 - Migraine, unspecified, not intractable, without status migrainosus Plan: Reinforced avoidance of migraine triggers Will start her on Topiramate 25 mg Q HS for headaches prophylaxis Continue Sumatriptan 50 mg PRN Will also refer her to neurology for further evaluation and management (2) Asthma: Code(s): J45.909 - Unspecified asthma, uncomplicated Qualifiers: Asthma severity: moderate Asthma persistence: persistent Asthma complication type: uncomplicated Qualified Code(s): J45.40 - Moderate persistent asthma, uncomplicated Plan: Continue Advair HFA 115-21 2 inhalations BID and Albuterol HFA 2 inhalations Q 6 hours PRN (3) Allergic rhinitis: Code(s): J30.9 - Allergic rhinitis, unspecified Qualifiers: Allergic rhinitis trigger: pollen Allergic rhinitis seasonality: seasonal Qualified Code(s): J30.1 - Allergic rhinitis due to pollen Plan: Continue Fluticasone 50 mcg nasal spray QD PRN (4) GERD (gastroesophageal reflux disease): Code(s): K21.9 - Gastro-esophageal reflux disease without esophagitis Qualifiers: Esophagitis presence: without esophagitis Qualified Code(s): K21.9 - Gastro-esophageal reflux disease without esophagitis Plan: Dietary restrictions reinforced Continue Omeprazole 40 mg QD (5) Vitamin D deficiency: Code(s): E55.9 - Vitamin D deficiency, unspecified Plan: Continue Vitamin D3 2000 units QD (6) Insomnia: Code(s): G47.00 - Insomnia, unspecified Qualifiers: Insomnia type: unspecified Qualified Code(s): G47.00 - Insomnia, unspecified Plan: Sleep hygiene reinforced Will increase her Prazosin from 1 mg to 2 mg Q HS (7) Anxiety: Code(s): F41.9 - Anxiety disorder, unspecified Plan: Will increase her Sertraline from 25 mg to 50 mg QD (8) Overweight (BMI 25.0-29.9): Code(s): E66.3 - Overweight Plan: Reinforced diet/exercise as tolerated/lose weight Plan Follow up in 2 months Orders: Referrals Neurology Referral G43.909 - Migraine, unspecified, not intractable, without status migrainosus Medications: New topiramate 25 mg PO BEDTIME 30 tabs 3RF headache prophylaxis 30 days G43.909 - Migraine, unspecified, not intractable, without status migrainosus Changed From sertraline 25 mg PO DAILY 90 days 90 tabs 0RF F41.9 - Anxiety disorder, unspecified To sertraline 50 mg PO DAILY 90 tabs 1RF 90 days F41.9 - Anxiety disorder, unspecified From prazosin 1 mg PO BEDTIME 30 days 30 caps 2RF To prazosin 2 mg PO BEDTIME 30 caps 2RF 30 days Coding Level of Care Code Est Pt Level 4 (21076) Diagnoses Migraine without status migrainosus, not intractable, unspecified migraine type G43.909 Migraine type: unspecified Status migrainosus presence: without status migrainosus Intractability: not intractable Moderate persistent asthma without complication J45.40 Asthma severity: moderate Asthma persistence: persistent Asthma complication type: uncomplicated Seasonal allergic rhinitis due to pollen J30.1 Allergic rhinitis trigger: pollen Allergic rhinitis seasonality: seasonal Gastroesophageal reflux disease without esophagitis K21.9 Esophagitis presence: without esophagitis Vitamin D deficiency E55.9 Insomnia, unspecified type G47.00 Insomnia type: unspecified Anxiety F41.9 Overweight (BMI 25.0-29.9) E66.3
== END 2023-02-18 16:36 | disposition home or self-care (01) ==
LOC: HO.HMGH 15:47
PROVIDERS: PCP Internal Medicine; Visit Provider Internal Medicine
DX: G43.909 Migraine, unspecified, not intractable, without status migrainosus (principal); J45.40 Moderate persistent asthma, uncomplicated; J30.1 Allergic rhinitis due to pollen; K21.9 Gastro-esophageal reflux disease without esophagitis; E55.9 Vitamin D deficiency, unspecified; G47.00 Insomnia, unspecified; F41.9 Anxiety disorder, unspecified; E66.3 Overweight
CPT/HCPCS: 99214

== ENCOUNTER 2023-02-26 08:00 | Emergency (ER) | payer OTHER, SELFPAY ==
--- NOTE | 2023-02-26 08:39 | ED.HA ---
HPI - Headache General Chief Complaint: Headache Stated Complaint: Migraine/Vomiting/Diarrhea Time Seen by Provider: 02/26/23 08:33 Source: patient Mode of arrival: ambulatory Limitations: no limitations History of Present Illness HPI Narrative: right sided headache with nausea and vomiting. Cant stop vomiting, took her sumatriptine with minimal improvement. MD elicited complaint: headache Onset (ago): day(s) Location: right, frontal and temporal Severity: moderate Exacerbating factors: light and noise Associated symptoms: nausea and vomiting Related Data Home Medications Medication Instructions Recorded Confirmed levonorgestrel 17.5 mcg/24 hrs intrauterine 02/18/23 (5yrs) 19.5mg intrauterine device (Kyleena) Previous Rx's Medication Instructions Recorded fluticasone propionate 50 1 spray intranasal BID #16 grams 02/19/22 mcg/actuation nasal spray,suspension fluticasone propionate 115 2 puff inhalation Q12H 30 days #1 02/26/22 mcg-salmeterol 21 mcg/actuation ea HFA inhaler (Advair HFA) albuterol sulfate 90 mcg/actuation 2 puff inhalation Q6H PRN 04/18/22 aerosol inhaler shortness of breath or wheezing #8.5 grams cholecalciferol (vitamin D3) 50 50 mcg PO DAILY #90 tabs 07/13/22 mcg (2,000 unit) tablet omeprazole 40 mg capsule,delayed 40 mg PO DAILY 30 days #30 caps 11/06/22 release ondansetron 4 mg disintegrating 4 mg PO BID PRN nausea and 11/06/22 tablet vomiting #10 tabs prazosin 2 mg capsule 2 mg PO BEDTIME 30 days #30 caps 02/18/23 sertraline 50 mg tablet 50 mg PO DAILY 90 days #90 tabs 02/18/23 topiramate 25 mg tablet 25 mg PO BEDTIME headache 02/18/23 prophylaxis 30 days #30 tabs sumatriptan succinate 25 mg tablet See Rx Instructions PO .COMPLEX #7 02/22/23 tabs naproxen 500 mg tablet (Naprosyn) 500 mg PO BID #20 tabs 02/26/23 Allergies Allergy/AdvReac Type Severity Reaction Status Date / Time No Known Allergies Allergy Verified 02/11/23 15:15 [No Known Allergies*] Review of Systems Review of Systems: Yes all other systems are reviewed and are negative Constitutional: Comments: headache Neurologic: Denies Sensory deficit (Neuro) [facility] Past Medical History Medical History Anxiety Migraine Overweight (BMI 25.0-29.9) Surgical History History of tonsillectomy Family History Family History Maternal Grandmother Breast cancer Father Medical history unknown Mother Medical history unknown Maternal Grandfather No problems noted. Paternal Grandfather Cancer Colon cancer Brother In good health Brother In good health Social History Social History Housing: House Alcohol intake: unknown Patient Tobacco Use Status: Never used Tobacco Second Hand Smoke Exposure: No Use of substances other than those prescribed or required for medical reasons: Unknown Advance Directives: No Advance Directives Information Provided: No Patient : No service: No Current occupational status: employed Current occupation: [employer] Sexual orientation: Straight/Heterosexual Gender identity: Female Cognitive needs: No Hearing needs: No Vision needs: No Physical Exam Vital Signs: Vital Signs: Last Vital Signs Temp 99 F 02/26/23 08:44 Pulse 96 02/26/23 08:44 Resp 16 02/26/23 08:44 BP 122/79 02/26/23 08:44 Pulse Ox 100 02/26/23 08:44 O2 Del Method Room Air 02/26/23 08:44 BMI result Body Mass Index 28.5 Const: General: healthy appearing Nutritional Appearance: average body habitus Orientation/consciousness: oriented to person and patient oriented x3 Limitations: no limitations HEENT: Head: Yes normal to inspection Ears: external ears normal General nose exam: Normal external nose present Mouth: Normal oral and palatal mucosa present and oropharynx normal Throat: Yes posterior oropharynx normal Eyes: General: appearance normal, both eyes and all related structures Neck: Other: supple Neck: Yes normal visual inspection Chest: Chest palpation & inspection: normal inspection of the chest Resp: Auscultation: clear to auscultation bilaterally Cardio: Jugular venous distension: no JVD Rate: regular rate Rhythm: regular rhythm Heart sounds: S1 normal heart sound present and S2 normal heart sound present GI: Inspection: Yes normal to inspection Palpation (GI): Soft to palpation, nontender and No hepatosplenomegaly present Auscultation: normal bowel sounds : General: Yes no CVA tenderness Back/Spine/Pelvis: Back: no CVA tenderness Skin: General skin exam: no rashes or lesions noted Neuro: General: oriented to person and patient oriented x3 Cranial nerves: Yes CN's II-XII intact bilaterally Motor exam (neuro): 5/5 motor strength present throughout Sensory Exam: No Sensory deficit (Neuro) Extrem: General: Yes normal to inspection Psych: Appearance: grossly normal Course Reevaluation(s) Reevaluation #1: patient sleeping feeling much better will dc home Time: 11:08 Medications Administered Discontinued Medications Generic Name Dose Route Start Last Admin Trade Name Freq PRN Reason Stop Dose Admin Sodium Chloride 1,000 mls @ 999 mls/hr 02/26/23 08:45 02/26/23 09:39 Ns IVCONT 02/26/23 10:45 999 mls/hr .Q1H1M JASSI Administration Promethazine HCl 25 mg/ Sodium 51 mls @ 204 mls/hr 02/26/23 08:43 02/26/23 09:20 Chloride IV 02/26/23 08:44 Infused ONCE ONE Infusion Ketorolac Tromethamine 30 mg 02/26/23 08:43 02/26/23 09:03 Ketorolac Tromethamine 30 Mg/Ml Vial IVPUSH 02/26/23 08:44 30 mg ONCE ONE Administration Medical Decision Making Differential Diagnosis Differential Diagnoses: The differential diagnosis associated with the presentation includes (migraine headache, vomiting) Tests considered The following testing was considered but not selected: I considered doing CBC and Chem 7 but the patient with a prior history of this problem and straightforward description Discharge Plan Discharge Clinical Impression: Migraine Patient Disposition: Home, Self-Care Instructions: Migraine Headache (ED) Prescriptions: New naproxen [Naprosyn] 500 mg tablet 500 mg PO BID Qty: 20 0RF No Action fluticasone propionate 50 mcg/actuation spray,suspension 1 spray intranasal BID Qty: 16 0RF Rx Instructions: administer into each nostril Advair HFA 115-21 mcg/actuation HFA aerosol inhaler 2 puff inhalation Q12H 30 Days Qty: 1 6RF albuterol sulfate 90 mcg/actuation HFA aerosol inhaler 2 puff inhalation Q6H PRN (Reason: shortness of breath or wheezing) Qty: 8.5 0RF cholecalciferol (vitamin D3) 50 mcg (2,000 unit) tablet 50 mcg PO DAILY Qty: 90 3RF sumatriptan succinate 25 mg tablet See Rx Instructions PO .COMPLEX Qty: 7 0RF Rx Instructions: take 1 tab at onset of headache; if no relief may repeat 1 tab after at least 2 hrs; max = 4 tabs/24 hr PO omeprazole 40 mg capsule,delayed release(DR/EC) 40 mg PO DAILY 30 Days Qty: 30 3RF ondansetron 4 mg tablet,disintegrating 4 mg PO BID PRN (Reason: nausea and vomiting) Qty: 10 0RF Kyleena 17.5 mcg/24 hrs (5 yrs) 19.5 mg intrauterine device intrauterine topiramate 25 mg tablet 25 mg PO BEDTIME 30 Days Qty: 30 3RF sertraline 50 mg tablet 50 mg PO DAILY 90 Days Qty: 90 1RF prazosin 2 mg capsule 2 mg PO BEDTIME 30 Days Qty: 30 2RF Referrals: Mina Paul MD [Primary Care Provider] - 1 week
[2023-02-26 08:44] VITALS: BP 122/79; PULSE 96; RESP 16; TEMP 37.2; O2SAT 100; BMI 28.5
[2023-02-26] MEDS: 0.9 % Sodium Chloride 1,000 ML 999 ML IVCONT ×2 (08:56→09:39)
[2023-02-26] MEDS: Ketorolac Tromethamine 30 MG/ML VIAL IVPUSH (09:03)
--- NOTE | 2023-02-26 09:10 | PC.NURSE ---
PT MEDICATED CHARTED, RESTING QUIETLY AWAITING IMPROVEMENTS
== END 2023-02-26 11:27 | disposition home or self-care (01) ==
PROVIDERS: Emergency Provider Emergency Medicine; PCP Internal Medicine
DX: G43.909 Migraine, unspecified, not intractable, without status migrainosus (principal); Z79.899 Other long term (current) drug therapy
CPT/HCPCS: 96361; 96374; 96375; 99284; J1885; J2550

== ENCOUNTER → 2023-03-15 15:10 | Outpatient (BNVA) | payer OTHER, SELFPAY | PROVIDERS: PCP Internal Medicine; Visit Provider Advanced Practice Midwife | DX: Z13.89 Encounter for screening for other disorder (principal) ==

== ENCOUNTER 2023-04-04 15:48 | Emergency (ER) | payer OTHER, MEDICAID, SELFPAY ==
--- NOTE | ~2023-04-04 | XR_ITS ---
EXAMINATION: XR CHEST CLINICAL INFORMATION: Shortness of breath COMPARISON: None available. TECHNIQUE: Frontal view of the chest was obtained. FINDINGS: Tiny granuloma left upper lobe. No significant abnormality is noted involving the heart, lungs, mediastinum, bony thorax or soft tissues. XR/XR chest 1V IMPRESSION: No active chest disease.
[2023-04-04 15:56] VITALS: BP 136/80; PULSE 92; RESP 20; TEMP 36.9; O2SAT 99; BMI 27.4
--- NOTE | 2023-04-04 16:02 | ECG_ITS ---
Test Reason : SOB Blood Pressure : / mmHG Vent. Rate : 079 BPM Atrial Rate : 079 BPM P-R Int : 140 ms QRS Dur : 096 ms QT Int : 400 ms P-R-T Axes : 064 066 054 degrees QTc Int : 458 ms Normal sinus rhythm with sinus arrhythmia Normal ECG No previous ECGs available Referred By: Kailee Knott Electronically Signed By:Maicol Williamson
--- NOTE | 2023-04-04 16:03 | ED.SOB ---
HPI - SOB/Dyspnea General Chief Complaint: Dyspnea <LUIS ALBERTO Mccollum - Last Filed: 04/04/23 16:04> Stated Complaint: Pulmonary embolism? sent by urgentcare <LUIS ALBERTO Mccollum - Last Filed: 04/04/23 16:04> Time Seen by Provider: 04/04/23 17:44 <LUIS ALBERTO Mccollum - Last Filed: 04/04/23 16:04> Source: patient <Quirino Charles - Last Filed: 04/04/23 18:02> Limitations: no limitations <Quirino Charles - Last Filed: 04/04/23 18:02> History of Present Illness HPI Narrative: 27-year-old female presents to the ER as after going to urgent care for respiratory symptoms and shortness of breath and was sent in to rule out pulmonary embolism. Patient denies any past medical history of pulmonary embolism patient does have asthma. Patient states seasonal allergies has been worse at this time. Patient has had multiple episodes over the past 2-3 days denies any recent travel history. Patient denies tobacco history. Symptoms are worse when outside. <Quirino Charles - Last Filed: 04/04/23 18:02> Related Data Home Medications: Home Medications Medication Instructions Recorded Confirmed levonorgestrel 17.5 mcg/24 hrs intrauterine 02/18/23 (5yrs) 19.5mg intrauterine device (Kyleena) Previous Rx's Medication Instructions Recorded fluticasone propionate 115 2 puff inhalation Q12H 30 days #1 02/26/22 mcg-salmeterol 21 mcg/actuation ea HFA inhaler (Advair HFA) albuterol sulfate 90 mcg/actuation 2 puff inhalation Q6H PRN 04/18/22 aerosol inhaler shortness of breath or wheezing #8.5 grams cholecalciferol (vitamin D3) 50 50 mcg PO DAILY #90 tabs 07/13/22 mcg (2,000 unit) tablet omeprazole 40 mg capsule,delayed 40 mg PO DAILY 30 days #30 caps 11/06/22 release ondansetron 4 mg disintegrating 4 mg PO BID PRN nausea and 11/06/22 tablet vomiting #10 tabs prazosin 2 mg capsule 2 mg PO BEDTIME 30 days #30 caps 02/18/23 sertraline 50 mg tablet 50 mg PO DAILY 90 days #90 tabs 02/18/23 topiramate 25 mg tablet 25 mg PO BEDTIME headache 02/18/23 prophylaxis 30 days #30 tabs naproxen 500 mg tablet (Naprosyn) 500 mg PO BID #20 tabs 02/26/23 sumatriptan succinate 25 mg tablet See Rx Instructions PO .COMPLEX #7 03/04/23 tabs fluticasone propionate 50 1 spray intranasal BID #16 grams 04/02/23 mcg/actuation nasal spray,suspension prednisone 20 mg tablet 40 mg PO DAILY 5 days #10 tabs 04/04/23 <LUIS ALBERTO Mccollum - Last Filed: 04/04/23 16:04> Allergies/Adverse Reactions: Allergies Allergy/AdvReac Type Severity Reaction Status Date / Time No Known Allergies Allergy Verified 03/15/23 15:16 [No Known Allergies*] <LUIS ALBERTO Mccollum - Last Filed: 04/04/23 16:04> Review of Systems Review of Systems: General: No fever, no chills Ophthalmology: No vision changes, no discharge ENT: No sore throat, no ear pain, nasal discharge sneezing Cardiovascular: No chest pain, no peripheral edema, no shortness of breath Respiratory: Shortness of breath resolved Muscle skeletal: No malaise, no back pain, no neck pain, no extremity pain GI: No abdominal pain: no nausea vomiting, no diarrhea : No dysuria, no urgency, no frequency Psychiatric: No depression, no suicidal ideation, no homicidal ideation Skin: No rash <Quirino Charles - Last Filed: 04/04/23 18:02> [facility] Past Medical History Medical History: Medical History Anxiety Migraine Overweight (BMI 25.0-29.9) <LUIS ALBERTO Mccollum Last Filed: 04/04/23 16:04> Surgical History: Surgical History History of tonsillectomy <LUIS ALBERTO Mccollum Last Filed: 04/04/23 16:04> Family History Family History: Family History Maternal Grandmother Breast cancer Father Medical history unknown Mother Medical history unknown Maternal Grandfather No problems noted. Paternal Grandfather Cancer Colon cancer Brother In good health Brother In good health <LUIS ALBERTO Mccollum - Last Filed: 04/04/23 16:04> Social History Social History: Social History Housing: House Alcohol intake: unknown Patient Tobacco Use Status: Never used Tobacco Second Hand Smoke Exposure: No Advance Directives: No Advance Directives Information Provided: No service: No Current occupational status: employed Current occupation: [employer] Sexual orientation: Straight/Heterosexual Gender identity: Female Cognitive needs: No Hearing needs: No Vision needs: No <LUIS ALBERTO Mccollum - Last Filed: 04/04/23 16:04> Physical Exam Vital Signs: Vital Signs: Last Vital Signs Temp 98.3 F 04/04/23 17:26 Pulse 72 04/04/23 17:26 Resp 20 04/04/23 17:26 BP 108/64 04/04/23 17:26 Pulse Ox 100 04/04/23 17:26 O2 Del Method Room Air 04/04/23 17:26 BMI result Body Mass Index 27.4 <LUIS ALBERTO Mccollum - Last Filed: 04/04/23 16:04> Vital Signs: Last Vital Signs Temp 98.3 F 04/04/23 17:26 Pulse 72 04/04/23 17:26 Resp 20 04/04/23 17:26 BP 108/64 04/04/23 17:26 Pulse Ox 100 04/04/23 17:26 O2 Del Method Room Air 04/04/23 17:26 BMI result Body Mass Index 27.4 <Quirino Charles - Last Filed: 04/04/23 18:02> General appearance: Awake, alert, cooperative, in no acute distress Skin: Warm, dry, no rash Eyes: PERRL, EOMI, no icterus ENT: Oropharynx normal, uvula midline, slight nasal congestion and discharge Neck: Soft supple full range of motion Pulmonary: Breath sounds clear to auscultation bilaterally, no accessory muscle use Cardiovascular: Regular rate and rhythm, no murmurs and rubs Abdomen: Soft nontender, no rebound or guarding, positive bowel sounds Extremities: No deformity, nontender, no peripheral edema noted. Bilateral calves nontender Neuro: Alert oriented x3, no focal deficit Psych: Normal affect <Quirino Charles - Last Filed: 04/04/23 18:02> Course Course Course Narrative: This is an RME: Additional HPI, ROS, PE not included below will be deferred to primary provider. 19-year-old female presents with fatigue, malaise, congestion, shortness of breath on exertion, patient was seen at [facility] and [place], was told to come to the emergency department because they were concerned she could have a blood clot. However, patient without significant risk factors, not a smoker, no long travel, no history of DVT or PE, no history of malignancy, no history of hypercoagulable disorders. Patient denies chest pain, fevers, chills, nausea, vomiting, abdominal pain. Physical exam benign. Vital signs stable. Patient sounds nasally and congested. Likely viral however patient very concerned for PE. Labs D-dimer. <LUIS ALBERTO Mccollum - Last Filed: 04/04/23 16:04> Medical Decision Making Medical Decision Making MDM Narrative: Pulmonary embolism Seasonal allergies Bronchitis Pneumonia 27-year-old female sent in from urgent care to rule out PE secondary to dyspnea with discomfort. Multiple episodes over the past 3 days patient does have a longstanding history of asthma and seasonal allergies. At this time upon counts really high symptoms most likely secondary to seasonal allergies as well as criteria is negative D-dimer is less than 150. Overall very low concerns for pulmonary embolism at this time. Will place patient on a prednisone course at this time Wells' Criteria for Pulmonary Embolism from [email or web address] on 04/04/2023 All calculations should be rechecked by clinician prior to use RESULT SUMMARY: 0.0 points Low risk group: 1.3% chance of PE in an ED population. Another study assigned scores = 4 as ?PE Unlikely? and had a 3% incidence of PE. INPUTS: Clinical signs and symptoms of DVT ?> 0 = No PE is #1 diagnosis OR equally likely ?> 0 = No Heart rate > 100 ?> 0 = No Immobilization at least 3 days OR surgery in the previous 4 weeks ?> 0 = No Previous, objectively diagnosed PE or DVT ?> 0 = No Hemoptysis ?> 0 = No Malignancy w/ treatment within 6 months or palliative ?> 0 = No <Quirino Charles - Last Filed: 04/04/23 18:02> Lab Data Result Diagrams: 04/04/23 16:13 04/04/23 16:13 <LUIS ALBERTO Mccollum - Last Filed: 04/04/23 16:04> Labs: Lab Results 04/04/23 04/04/23 04/04/23 Range/Units 16:13 16:13 16:13 WBC 10.0 (4.8-10.8) X10*3/uL RBC 4.29 (4.20-5.50) X10*6/uL Hgb 12.7 (12.0-16.0) g/dl Hct 39.0 (37.0-47.0) % MCV 90.9 (80.0-98.0) fL MCH 29.6 (27.0-33.0) pg MCHC 32.6 (31.0-35.0) g/dl RDW 13.5 (11.0-16.0) % Plt Count 257 (160-400) X10*3/uL MPV 10.5 (9.4-12.3) fL Immature Gran % (Auto) 0.4 (0.0-0.4) % Neut % (Auto) 69.8 (45-73) % Lymph % (Auto) 20.1 (20-40) % [place] % (Auto) 8.5 (2-11) % Eos % (Auto) 0.9 (0-4) % Baso % (Auto) 0.3 (0-2) % Lymph # (Auto) 2.0 (1.2-4.9) X10*3/uL [place] # (Auto) 0.9 (0.1-1.2) X10*3/uL Eos # (Auto) 0.1 (0.0-0.4) X10*3/uL Baso # (Auto) 0.0 (0.0-0.2) X10*3/uL Abs Immat Gran (auto) 0.04 H (0.00-0.03) X10*3/uL Absolute Neuts (auto) 7.0 (2.0-8.3) x10*3/uL Absolute Nucleated RBC 0.000 (0.0-0.012) X10*3/uL Nucleated RBC % (auto) 0.0 (0.0-0.2) /100WBC D-Dimer High Sensitivty < 150 NG/ML Sodium 139 (135-145) mmol/L Potassium 4.1 (3.3-5.1) mmol/L Chloride 102 (96-108) mmol/L Carbon Dioxide 29 (22-29) mmol/L Anion Gap 12 (12-20) BUN 11 (9-16) mg/dL Creatinine 0.87 (0.5-1.4) mg/dL Estim Creat Clear Calc 100.9 Estimated GFR > 60 Random Glucose 104 (60-115) mg/dL Calcium 9.4 (8.4-10.2) mg/dL Total Bilirubin 0.3 (0.0-1.0) mg/dL AST 14 (5-31) U/L ALT 13 (0-31) U/L Alkaline Phosphatase 46 (39-117) U/L Troponin I High Sens (<3.5-17.0) ng/L B-Natriuretic Peptide (<100) pg/mL Total Protein 6.8 (6.5-8.0) g/dL Albumin 4.3 (3.5-5.0) g/dL 04/04/23 04/04/23 Range/Units 16:13 16:13 WBC (4.8-10.8) X10*3/uL RBC (4.20-5.50) X10*6/uL Hgb (12.0-16.0) g/dl Hct (37.0-47.0) % MCV (80.0-98.0) fL MCH (27.0-33.0) pg MCHC (31.0-35.0) g/dl RDW (11.0-16.0) % Plt Count (160-400) X10*3/uL MPV (9.4-12.3) fL Immature Gran % (Auto) (0.0-0.4) % Neut % (Auto) (45-73) % Lymph % (Auto) (20-40) % [place] % (Auto) (2-11) % Eos % (Auto) (0-4) % Baso % (Auto) (0-2) % Lymph # (Auto) (1.2-4.9) X10*3/uL [place] # (Auto) (0.1-1.2) X10*3/uL Eos # (Auto) (0.0-0.4) X10*3/uL Baso # (Auto) (0.0-0.2) X10*3/uL Abs Immat Gran (auto) (0.00-0.03) X10*3/uL Absolute Neuts (auto) (2.0-8.3) x10*3/uL Absolute Nucleated RBC (0.0-0.012) X10*3/uL Nucleated RBC % (auto) (0.0-0.2) /100WBC D-Dimer High Sensitivty NG/ML Sodium (135-145) mmol/L Potassium (3.3-5.1) mmol/L Chloride (96-108) mmol/L Carbon Dioxide (22-29) mmol/L Anion Gap (12-20) BUN (9-16) mg/dL Creatinine (0.5-1.4) mg/dL Estim Creat Clear Calc Estimated GFR Random Glucose (60-115) mg/dL Calcium (8.4-10.2) mg/dL Total Bilirubin (0.0-1.0) mg/dL AST (5-31) U/L ALT (0-31) U/L Alkaline Phosphatase (39-117) U/L Troponin I High Sens < 2.7 (<3.5-17.0) ng/L B-Natriuretic Peptide < 10 (<100) pg/mL Total Protein (6.5-8.0) g/dL Albumin (3.5-5.0) g/dL <LUIS ALBERTO Mccollum - Last Filed: 04/04/23 16:04> Lab Results 04/04/23 04/04/23 04/04/23 Range/Units 16:13 16:13 16:13 WBC 10.0 (4.8-10.8) X10*3/uL RBC 4.29 (4.20-5.50) X10*6/uL Hgb 12.7 (12.0-16.0) g/dl Hct 39.0 (37.0-47.0) % MCV 90.9 (80.0-98.0) fL MCH 29.6 (27.0-33.0) pg MCHC 32.6 (31.0-35.0) g/dl RDW 13.5 (11.0-16.0) % Plt Count 257 (160-400) X10*3/uL MPV 10.5 (9.4-12.3) fL Immature Gran % (Auto) 0.4 (0.0-0.4) % Neut % (Auto) 69.8 (45-73) % Lymph % (Auto) 20.1 (20-40) % [place] % (Auto) 8.5 (2-11) % Eos % (Auto) 0.9 (0-4) % Baso % (Auto) 0.3 (0-2) % Lymph # (Auto) 2.0 (1.2-4.9) X10*3/uL [place] # (Auto) 0.9 (0.1-1.2) X10*3/uL Eos # (Auto) 0.1 (0.0-0.4) X10*3/uL Baso # (Auto) 0.0 (0.0-0.2) X10*3/uL Abs Immat Gran (auto) 0.04 H (0.00-0.03) X10*3/uL Absolute Neuts (auto) 7.0 (2.0-8.3) x10*3/uL Absolute Nucleated RBC 0.000 (0.0-0.012) X10*3/uL Nucleated RBC % (auto) 0.0 (0.0-0.2) /100WBC D-Dimer High Sensitivty < 150 NG/ML Sodium 139 (135-145) mmol/L Potassium 4.1 (3.3-5.1) mmol/L Chloride 102 (96-108) mmol/L Carbon Dioxide 29 (22-29) mmol/L Anion Gap 12 (12-20) BUN 11 (9-16) mg/dL Creatinine 0.87 (0.5-1.4) mg/dL Estim Creat Clear Calc 100.9 Estimated GFR > 60 Random Glucose 104 (60-115) mg/dL Calcium 9.4 (8.4-10.2) mg/dL Total Bilirubin 0.3 (0.0-1.0) mg/dL AST 14 (5-31) U/L ALT 13 (0-31) U/L Alkaline Phosphatase 46 (39-117) U/L Troponin I High Sens (<3.5-17.0) ng/L B-Natriuretic Peptide (<100) pg/mL Total Protein 6.8 (6.5-8.0) g/dL Albumin 4.3 (3.5-5.0) g/dL 04/04/23 04/04/23 Range/Units 16:13 16:13 WBC (4.8-10.8) X10*3/uL RBC (4.20-5.50) X10*6/uL Hgb (12.0-16.0) g/dl Hct (37.0-47.0) % MCV (80.0-98.0) fL MCH (27.0-33.0) pg MCHC (31.0-35.0) g/dl RDW (11.0-16.0) % Plt Count (160-400) X10*3/uL MPV (9.4-12.3) fL Immature Gran % (Auto) (0.0-0.4) % Neut % (Auto) (45-73) % Lymph % (Auto) (20-40) % [place] % (Auto) (2-11) % Eos % (Auto) (0-4) % Baso % (Auto) (0-2) % Lymph # (Auto) (1.2-4.9) X10*3/uL [place] # (Auto) (0.1-1.2) X10*3/uL Eos # (Auto) (0.0-0.4) X10*3/uL Baso # (Auto) (0.0-0.2) X10*3/uL Abs Immat Gran (auto) (0.00-0.03) X10*3/uL Absolute Neuts (auto) (2.0-8.3) x10*3/uL Absolute Nucleated RBC (0.0-0.012) X10*3/uL Nucleated RBC % (auto) (0.0-0.2) /100WBC D-Dimer High Sensitivty NG/ML Sodium (135-145) mmol/L Potassium (3.3-5.1) mmol/L Chloride (96-108) mmol/L Carbon Dioxide (22-29) mmol/L Anion Gap (12-20) BUN (9-16) mg/dL Creatinine (0.5-1.4) mg/dL Estim Creat Clear Calc Estimated GFR Random Glucose (60-115) mg/dL Calcium (8.4-10.2) mg/dL Total Bilirubin (0.0-1.0) mg/dL AST (5-31) U/L ALT (0-31) U/L Alkaline Phosphatase (39-117) U/L Troponin I High Sens < 2.7 (<3.5-17.0) ng/L B-Natriuretic Peptide < 10 (<100) pg/mL Total Protein (6.5-8.0) g/dL Albumin (3.5-5.0) g/dL <Quirino Charles - Last Filed: 04/04/23 18:02> Discharge Plan Discharge Clinical Impression: Seasonal allergic rhinitis, Asthma <LUIS ALBERTO Mccollum - Last Filed: 04/04/23 16:04> Patient Disposition: Home, Self-Care <LUIS ALBERTO Mccollum Last Filed: 04/04/23 16:04> Instructions: Asthma (DC), Allergic Rhinitis (DC) <LUIS ALBERTO Mccollum - Last Filed: 04/04/23 16:04> Additional Instructions: D-dimer is negative and with a negative Wells criteria very low suspicion for pulmonary embolism Symptoms seem consistent with seasonal allergies Will plan to place you on a course of prednisone at this time continue her other medications Return if symptoms worsen Chest x-ray showed no obvious signs of pneumonia <LUIS ALBERTO Mccollum - Last Filed: 04/04/23 16:04> Prescriptions: New prednisone 20 mg tablet 40 mg PO DAILY 5 Days Qty: 10 0RF No Action Advair HFA 115-21 mcg/actuation HFA aerosol inhaler 2 puff inhalation Q12H 30 Days Qty: 1 6RF albuterol sulfate 90 mcg/actuation HFA aerosol inhaler 2 puff inhalation Q6H PRN (Reason: shortness of breath or wheezing) Qty: 8.5 0RF cholecalciferol (vitamin D3) 50 mcg (2,000 unit) tablet 50 mcg PO DAILY Qty: 90 3RF sumatriptan succinate 25 mg tablet See Rx Instructions PO .COMPLEX Qty: 7 0RF Rx Instructions: take 1 tab at onset of headache; if no relief may repeat 1 tab after at least 2 hrs; max = 4 tabs/24 hr PO fluticasone propionate 50 mcg/actuation spray,suspension 1 spray intranasal BID Qty: 16 0RF Rx Instructions: administer into each nostril naproxen [Naprosyn] 500 mg tablet 500 mg PO BID Qty: 20 0RF omeprazole 40 mg capsule,delayed release(DR/EC) 40 mg PO DAILY 30 Days Qty: 30 3RF ondansetron 4 mg tablet,disintegrating 4 mg PO BID PRN (Reason: nausea and vomiting) Qty: 10 0RF Kyleena 17.5 mcg/24 hrs (5 yrs) 19.5 mg intrauterine device intrauterine topiramate 25 mg tablet 25 mg PO BEDTIME 30 Days Qty: 30 3RF sertraline 50 mg tablet 50 mg PO DAILY 90 Days Qty: 90 1RF prazosin 2 mg capsule 2 mg PO BEDTIME 30 Days Qty: 30 2RF <LUIS ALBERTO Mccollum - Last Filed: 04/04/23 16:04> Stand Alone Forms: Work/School Release <LUIS ALBERTO Mccollum - Last Filed: 04/04/23 16:04>
[2023-04-04 16:19] LABS: MANUAL DIFF FLAG NO
[2023-04-04 16:22] LABS: Basophils Percent Auto 0.3 % (0-2); Eosinophils Absolute Auto 0.1 X10*3/uL (0.0-0.4); Eosinophils Percent Auto 0.9 % (0-4); Hemoglobin 12.7 g/dl (12.0-16.0); Imm Gran Abs Auto 0.04 X10*3/uL (0.00-0.03); Imm Gran Pct Auto 0.4 % (0.0-0.4); Lymphocytes Percent Auto 20.1 % (20-40); Mean Corpuscular HGB Conc 32.6 g/dl (31.0-35.0); Mean Corpuscular Hemoglobin 29.6 pg (27.0-33.0); Mean Corpuscular Volume 90.9 fL (80.0-98.0); Mean Platelet Volume 10.5 fL (9.4-12.3); Monocytes Absolute Auto 0.9 X10*3/uL (0.1-1.2); Monocytes Percent Auto 8.5 % (2-11); Neutrophils Percent Auto 69.8 % (45-73); Platelet Count 257 X10*3/uL (160-400); Red Blood Count 4.29 X10*6/uL (4.20-5.50); Red Cell Distribution Width 13.5 % (11.0-16.0)
[2023-04-04 16:28] LABS: D Dimer High Sensitivity < 150 NG/ML
[2023-04-04 16:36] LABS: Alanine Aminotransferase 13 U/L (0-31); Albumin Level 4.3 g/dL (3.5-5.0); Alkaline Phosphatase 46 U/L (39-117); Anion Gap 12 (12-20); Aspartate Amino Transferase 14 U/L (5-31); Bilirubin Total 0.3 mg/dL (0.0-1.0); Blood Urea Nitrogen 11 mg/dL (9-16); Calcium 9.4 mg/dL (8.4-10.2); Carbon Dioxide 29 mmol/L (22-29); Chloride 102 mmol/L (96-108); Creatinine Clr Calc Pharmacy 100.9; Estimated Glomerular Filt Rate > 60; Glucose Random 104 mg/dL (60-115); Potassium 4.1 mmol/L (3.3-5.1); Sodium 139 mmol/L (135-145); Total Protein 6.8 g/dL (6.5-8.0)
[2023-04-04 16:41] LABS: B Type Natriuretic Peptide < 10 pg/mL (<100)
[2023-04-04 16:44] LABS: Troponin-I High Sensitivity < 2.7 ng/L (<3.5-17.0)
[2023-04-04 17:26] VITALS: BP 108/64; PULSE 72; RESP 20; TEMP 36.8; O2SAT 100
== END 2023-04-04 18:18 | disposition home or self-care (01) ==
PROVIDERS: Physician Assistant; Emergency Provider Internal Medicine; PCP Internal Medicine
DX: J45.909 Unspecified asthma, uncomplicated (principal); R06.02 Shortness of breath
CPT/HCPCS: 36415; 71045; 80053; 83880; 84484; 85025; 85379; 93005; 99283; 99284

== ENCOUNTER 2023-05-17 12:03 | Outpatient (REF) | payer OTHER, MEDICAID, SELFPAY ==
[2023-05-17 13:09] LABS: Appearance Urine Cloudy; Color Urine Orange; Glucose Urine UA 250 mg/dL (Negative); Leukocyte Esterase Urine Moderate (2+) (Negative); Specific Gravity - Urine 1.025 (1.005-1.025); UMIC TRIGGER UACC YES; Urine Blood Large (3+) (Negative); Urine Ketones Trace mg/dL (Negative)
[2023-05-17 13:42] LABS: Bacteria Urine None Seen (None Seen); Hyaline Casts Urine 0-2 /LPF (0-2); RBC Urine >20 /HPF (0-2); WBC Urine 0-5 /HPF (0-5)
== END 2023-05-17 12:04 | disposition home or self-care (01) ==
LOC: HO.LAB 12:03
PROVIDERS: PCP Internal Medicine; Visit Provider Internal Medicine
DX: R39.9 Unspecified symptoms and signs involving the genitourinary system (principal)
CPT/HCPCS: 81001

== ENCOUNTER 2023-05-24 18:15 | Emergency (ER) | payer OTHER, MEDICAID, SELFPAY ==
[2023-05-24 18:19] VITALS: BP 109/52; PULSE 105; RESP 18; TEMP 38.3; O2SAT 98; BMI 30.5
--- NOTE | 2023-05-24 18:19 | ED.GENADULT ---
HPI - General Adult General Chief complaint: Fever Stated complaint: fever/ numbness / chest pain Time Seen by Provider: 05/24/23 18:51 Source: patient Mode of arrival: ambulatory Limitations: no limitations History of Present Illness HPI narrative: Patient comes emergency room complaining of fever, chills, nausea, left-sided flank pain. Patient states that 1 week ago she was complaining of urinary symptoms, went to her PCP. Is ago, patient was informed of the results, she tested positive for UTI. Patient was started on Macrobid. Patient states that for the last couple of days, patient has had worsening symptoms, now she has left-sided flank pain and fever. Related Data Home Medications Medication Instructions Recorded Confirmed fluticasone propionate 115 2 puff inhalation Q12H PRN 05/24/23 05/24/23 mcg-salmeterol 21 mcg/actuation Shortness Of Breath HFA inhaler (Advair HFA) fluticasone propionate 50 1 spray intranasal BID PRN 05/24/23 05/24/23 mcg/actuation nasal Allergic Symptoms spray,suspension montelukast 10 mg tablet 10 mg PO BEDTIME 05/24/23 05/24/23 omeprazole 40 mg capsule,delayed 40 mg PO DAILY PRN Acid Reflux 05/24/23 05/24/23 release prazosin 2 mg capsule 2 mg PO BEDTIME PRN Sleep 05/24/23 05/24/23 topiramate 25 mg tablet 25 mg PO BEDTIME PRN Headache 05/24/23 05/24/23 Previous Rx's Medication Instructions Recorded sumatriptan succinate 25 mg tablet See Rx Instructions PO .COMPLEX #7 03/04/23 tabs albuterol sulfate 90 mcg/actuation 2 puff inhalation Q6H PRN 04/22/23 aerosol inhaler shortness of breath or wheezing 30 days #8.5 grams nitrofurantoin 100 mg PO Q12H 7 days #14 caps 05/23/23 monohydrate/macrocrystals 100 mg capsule (Macrobid) acetaminophen 500 mg capsule 1,000 mg PO Q6H PRN fever or pain 05/24/23 #14 caps ketorolac 10 mg tablet 10 mg PO .b.i.d. PRN pain #7 tabs 05/24/23 levofloxacin 500 mg tablet 500 mg PO DAILY #6 tabs 05/24/23 Allergies Allergy/AdvReac Type Severity Reaction Status Date / Time No Known Allergies Allergy Verified 05/24/23 18:19 [No Known Allergies*] Review of Systems Review of Systems: Constitutional : No Weight loss, No Fever, No Chills, No Night Sweats, No Fatigue, No Malaise ENT/Mouth : No Hearing loss, No Ear Pain, No Nasal Congestion, No Sinus Pain, No Hoarseness, No sore throat, No Rhinorrhea, No Swallowing Difficulty Eyes: No Eye Pain, No Swelling, No Redness, No Foreign Body, No Discharge, No Vision Changes Cardiovascular : No Chest Pain, No SOB, No Dyspnea on Exertion, No Orthopnea, No Edema, No Palpitations Respiratory : No Cough, No Sputum, No Wheezing, No Smoke Exposure, No Dyspnea Gastrointestinal : No Nausea, No Vomiting, No Diarrhea, No Constipation, No abdominal Pain, No Hematochezia, No Melena Genitourinary : no irregular bleeding, No Dysuria, No Urinary Frequency, No Hematuria, No Urinary Incontinence, No Urgency, Faith of left-sided flank pain, no Urinary Flow Changes, No Hesitancy Musculoskeletal : No joint pain, No Myalgias, No Joint Swelling Skin : No Skin Lesions, No rash Neuro : No Weakness, No Numbness, No Paresthesias, No Loss of Consciousness, No Dizziness, No Headache Psych : No Anxiety/Panic, No Depression, No SI/HI/AH/VH, No Social Issues, Heme/Lymph: No Bruising, No Bleeding,No Lymphadenopathy Endocrine : No Polyuria, No Polydipsia, No Temperature Intolerance [facility] Past Medical History Medical History Allergic rhinitis Anxiety Asthma Migraine Overweight (BMI 25.0-29.9) Vitamin D deficiency Surgical History History of tonsillectomy Family History Family History Maternal Grandmother Breast cancer Father Medical history unknown Mother Medical history unknown Maternal Grandfather No problems noted. Paternal Grandfather Cancer Colon cancer Brother In good health Brother In good health Social History Social History Housing: House Alcohol intake: current Alcohol intake frequency: holidays/special occasions only Patient Tobacco Use Status: Never used Tobacco Smoked in Last 30 Days: No Second Hand Smoke Exposure: No Use of substances other than those prescribed or required for medical reasons: No Advance Directives: No Advance Directives Information Provided: No Patient : No service: No Current occupational status: employed Current occupation: [employer] Sexual orientation: Straight/Heterosexual Gender identity: Female Cognitive needs: No Hearing needs: No Vision needs: No Physical Exam ED Vital Signs: Vital Signs - 24 hr 05/24/23 18:19 05/24/23 20:25 Temperature 100.9 F H 99.8 F Pulse Rate 105 H 82 Respiratory Rate 18 16 Blood Pressure 109/52 L 99/60 Pulse Oximetry 98 97 Oxygen Delivery Method Room Air Room Air BMI result Body Mass Index 30.5 Const Other: Appearance: Alert. Oriented X3. uncomfortable Eyes: Pupils equal, round and reactive to light. ENT: Pharynx normal. Neck: Normal inspection. Neck supple. No lymph nodes noted. No crepitus CVS: Normal heart rate and rhythm. Pulses normal. Normal S1 and S2 Respiratory: No respiratory distress. Breath sounds normal. No Wheezing. No rales Abdomen: Soft and nontender. No rigidity. No distention. mild left flank pain Skin: Skin warm and dry. Normal skin color. Normal skin turgor. Extremities: No lower extremity edema. No Lacerations. No Rash Neuro: Oriented X 3. No motor deficit. No sensory deficit. Moving all extremities. No slurred speech. CN 2 through 12 grossly intact Psych: calm, cooperative, normal affect Course Course Course Narrative: This is an RME: Additional HPI, ROS, PE not included below will be deferred to primary provider. Patient is a 27 year old female with a past medical history of uti taking macrobid for 2 days presents with left sided lower back pain and fevers. Patient reports 9/10 pain. Patient reports weakness, nausea, and one incident of vomiting. Patient denies headache, vision changes, numbness, tingling, chest pain, shortness of breath. Plan: pain management, labs, imaging Medications Administered Discontinued Medications Generic Name Dose Route Start Last Admin Trade Name Freq PRN Reason Stop Dose Admin Acetaminophen 975 mg 05/24/23 18:21 05/24/23 18:40 Acetaminophen 325 Mg Tablet PO 05/24/23 18:22 975 mg ONCE ONE Administration Sodium Chloride 1,000 mls @ 999 mls/hr 05/24/23 18:59 05/24/23 21:28 Ns IVCONT 05/24/23 19:59 Infused .Q1H1M ONE Infusion Levofloxacin 500 mg in 100 mls @ 100 mls/hr 05/24/23 18:59 05/24/23 21:28 Levaquin IV 05/24/23 19:58 Infused ONCE ONE Infusion Iohexol 100 ml 05/24/23 20:12 05/24/23 20:13 Iohexol 350 Mg/Ml 100 Ml Infus..Btl IV 05/24/23 20:13 85 ml ONCE ONE Administration Ketorolac Tromethamine 30 mg 05/24/23 18:59 05/24/23 20:18 Ketorolac Tromethamine 30 Mg/Ml Vial IVPUSH 05/24/23 19:00 30 mg ONCE ONE Administration Ondansetron HCl 4 mg 05/24/23 18:59 05/24/23 20:18 Ondansetron Hcl 4 Mg/2 Ml Vial IVPUSH 05/24/23 19:00 4 mg ONCE ONE Administration Medical Decision Making Medical Decision Making MDM Narrative: - patient was seen here for UTI, today she has left flank pain with worsening symptoms, admission considered. - patient White blood cell count elevated, 16.7, likely reactive leukocytosis. - patient's chemistry does not show any significant acute abnormalities your BUN creatinine normal, trop normal. Urinalysis negative for UTI - CT scan of the abdomen my interpretation: No kidney stones present. No air-fluid levels. IUD present Differential Diagnosis Differential Diagnoses: The differential diagnosis associated with the presentation includes ( UTI, pyelonephritis, musculoskeletal pain) Admission/Observation Consideration of admission/observation: Escalation of care including admission/observation considered Lab Data MDM Lab Attestation statement: I reviewed the patient's lab results. 05/24/23 18:38 05/24/23 18:38 Labs: Lab Results 05/24/23 05/24/23 05/24/23 Range/Units 18:38 18:38 18:38 WBC 16.7 H (4.8-10.8) X10*3/uL RBC 4.40 (4.20-5.50) X10*6/uL Hgb 13.4 (12.0-16.0) g/dl Hct 40.1 (37.0-47.0) % MCV 91.1 (80.0-98.0) fL MCH 30.5 (27.0-33.0) pg MCHC 33.4 (31.0-35.0) g/dl RDW 13.3 (11.0-16.0) % Plt Count 261 (160-400) X10*3/uL MPV 11.3 (9.4-12.3) fL Immature Gran % (Auto) 0.6 H (0.0-0.4) % Neut % (Auto) 85.5 H (45-73) % Lymph % (Auto) 7.3 L (20-40) % [place] % (Auto) 6.2 (2-11) % Eos % (Auto) 0.1 (0-4) % Baso % (Auto) 0.3 (0-2) % Lymph # (Auto) 1.2 (1.2-4.9) X10*3/uL [place] # (Auto) 1.0 (0.1-1.2) X10*3/uL Eos # (Auto) 0.0 (0.0-0.4) X10*3/uL Baso # (Auto) 0.1 (0.0-0.2) X10*3/uL Abs Immat Gran (auto) 0.10 H (0.00-0.03) X10*3/uL Absolute Neuts (auto) 14.3 H (2.0-8.3) x10*3/uL Absolute Nucleated RBC 0.000 (0.0-0.012) X10*3/uL Nucleated RBC % (auto) 0.0 (0.0-0.2) /100WBC Sodium 134 L (135-145) mmol/L Potassium 3.7 (3.3-5.1) mmol/L Chloride 101 (96-108) mmol/L Carbon Dioxide 23 (22-29) mmol/L Anion Gap 14 (12-20) BUN 7 L (9-16) mg/dL Creatinine 0.92 (0.5-1.4) mg/dL Estim Creat Clear Calc 100.4 Estimated GFR > 60 Random Glucose 116 H (60-115) mg/dL Lactic Acid (0.5-2.0) mmol/L Calcium 9.7 (8.4-10.2) mg/dL Magnesium 1.8 (1.6-2.6) mg/dL Total Bilirubin 0.7 (0.0-1.0) mg/dL AST 14 (5-31) U/L ALT 11 (0-31) U/L Alkaline Phosphatase 44 (39-117) U/L Troponin I High Sens < 2.7 (<3.5-17.0) ng/L Total Protein 7.8 (6.5-8.0) g/dL Albumin 4.5 (3.5-5.0) g/dL Beta HCG, Quant mIU/mL Urine Color Urine Appearance Urine pH (5.0-9.0) Ur Specific [place] (1.005-1.025) Urine Protein (Neg-Trace) mg/dL Urine Glucose (UA) (Negative) mg/dL Urine Ketones (Negative) mg/dL Urine Blood (Negative) Urine Nitrite (Negative) Ur Leukocyte Esterase (Negative) COVID-19 (MELISSA) (Negative) COVID-19 Clin Com Influenza Type A (CATE) (Negative) Influenza Type B (CATE) (Negative) Influenza A & B Note 05/24/23 05/24/23 05/24/23 Range/Units 18:38 18:38 18:38 WBC (4.8-10.8) X10*3/uL RBC (4.20-5.50) X10*6/uL Hgb (12.0-16.0) g/dl Hct (37.0-47.0) % MCV (80.0-98.0) fL MCH (27.0-33.0) pg MCHC (31.0-35.0) g/dl RDW (11.0-16.0) % Plt Count (160-400) X10*3/uL MPV (9.4-12.3) fL Immature Gran % (Auto) (0.0-0.4) % Neut % (Auto) (45-73) % Lymph % (Auto) (20-40) % [place] % (Auto) (2-11) % Eos % (Auto) (0-4) % Baso % (Auto) (0-2) % Lymph # (Auto) (1.2-4.9) X10*3/uL [place] # (Auto) (0.1-1.2) X10*3/uL Eos # (Auto) (0.0-0.4) X10*3/uL Baso # (Auto) (0.0-0.2) X10*3/uL Abs Immat Gran (auto) (0.00-0.03) X10*3/uL Absolute Neuts (auto) (2.0-8.3) x10*3/uL Absolute Nucleated RBC (0.0-0.012) X10*3/uL Nucleated RBC % (auto) (0.0-0.2) /100WBC Sodium (135-145) mmol/L Potassium (3.3-5.1) mmol/L Chloride (96-108) mmol/L Carbon Dioxide (22-29) mmol/L Anion Gap (12-20) BUN (9-16) mg/dL Creatinine (0.5-1.4) mg/dL Estim Creat Clear Calc Estimated GFR Random Glucose (60-115) mg/dL Lactic Acid 1.0 (0.5-2.0) mmol/L Calcium (8.4-10.2) mg/dL Magnesium (1.6-2.6) mg/dL Total Bilirubin (0.0-1.0) mg/dL AST (5-31) U/L ALT (0-31) U/L Alkaline Phosphatase (39-117) U/L Troponin I High Sens (<3.5-17.0) ng/L Total Protein (6.5-8.0) g/dL Albumin (3.5-5.0) g/dL Beta HCG, Quant < 2 mIU/mL Urine Color Urine Appearance Urine pH (5.0-9.0) Ur Specific [place] (1.005-1.025) Urine Protein (Neg-Trace) mg/dL Urine Glucose (UA) (Negative) mg/dL Urine Ketones (Negative) mg/dL Urine Blood (Negative) Urine Nitrite (Negative) Ur Leukocyte Esterase (Negative) COVID-19 (MELISSA) Negative (Negative) COVID-19 Clin Com See Note Influenza Type A (CATE) (Negative) Influenza Type B (CATE) (Negative) Influenza A & B Note 05/24/23 05/24/23 05/24/23 Range/Units 18:42 20:35 20:35 WBC (4.8-10.8) X10*3/uL RBC (4.20-5.50) X10*6/uL Hgb (12.0-16.0) g/dl Hct (37.0-47.0) % MCV (80.0-98.0) fL MCH (27.0-33.0) pg MCHC (31.0-35.0) g/dl RDW (11.0-16.0) % Plt Count (160-400) X10*3/uL MPV (9.4-12.3) fL Immature Gran % (Auto) (0.0-0.4) % Neut % (Auto) (45-73) % Lymph % (Auto) (20-40) % [place] % (Auto) (2-11) % Eos % (Auto) (0-4) % Baso % (Auto) (0-2) % Lymph # (Auto) (1.2-4.9) X10*3/uL [place] # (Auto) (0.1-1.2) X10*3/uL Eos # (Auto) (0.0-0.4) X10*3/uL Baso # (Auto) (0.0-0.2) X10*3/uL Abs Immat Gran (auto) (0.00-0.03) X10*3/uL Absolute Neuts (auto) (2.0-8.3) x10*3/uL Absolute Nucleated RBC (0.0-0.012) X10*3/uL Nucleated RBC % (auto) (0.0-0.2) /100WBC Sodium (135-145) mmol/L Potassium (3.3-5.1) mmol/L Chloride (96-108) mmol/L Carbon Dioxide (22-29) mmol/L Anion Gap (12-20) BUN (9-16) mg/dL Creatinine (0.5-1.4) mg/dL Estim Creat Clear Calc Estimated GFR Random Glucose (60-115) mg/dL Lactic Acid (0.5-2.0) mmol/L Calcium (8.4-10.2) mg/dL Magnesium (1.6-2.6) mg/dL Total Bilirubin (0.0-1.0) mg/dL AST (5-31) U/L ALT (0-31) U/L Alkaline Phosphatase (39-117) U/L Troponin I High Sens (<3.5-17.0) ng/L Total Protein (6.5-8.0) g/dL Albumin (3.5-5.0) g/dL Beta HCG, Quant mIU/mL Urine Color Yellow Urine Appearance Clear Urine pH 8.0 (5.0-9.0) Ur Specific [place] 1.010 (1.005-1.025) Urine Protein Negative (Neg-Trace) mg/dL Urine Glucose (UA) Negative (Negative) mg/dL Urine Ketones Negative (Negative) mg/dL Urine Blood Negative (Negative) Urine Nitrite Negative (Negative) Ur Leukocyte Esterase Negative (Negative) COVID-19 (MELISSA) Negative (Negative) COVID-19 Clin Com See Note Influenza Type A (CATE) Negative (Negative) Influenza Type B (CATE) Negative (Negative) Influenza A & B Note See Note Radiology Impression Discussion of test interpretation with radiology: I have reviewed the radiologist's reading. Radiologist Impression: FINDINGS: LUNG BASES: The visualized lung bases are unremarkable.? LIVER, GALLBLADDER, AND BILIARY TREE: The liver is normal in size, shape, and attenuation. No focal hepatic lesion or biliary ductal dilatation is present. The gallbladder is unremarkable with no evidence of radiopaque gallstones, gallbladder wall thickening, or obvious pericholecystic inflammatory changes.? PANCREAS: Unremarkable.? SPLEEN: Unremarkable.? ADRENAL GLANDS: Unremarkable.? KIDNEYS AND URETERS: The kidneys are normal in size, shape, and attenuation. No hydronephrosis, hydroureter, or calculi seen. No perinephric stranding. ? BLADDER: Unremarkable.? GASTROINTESTINAL TRACT: The small and large bowel are unremarkable. The appendix is unremarkable.? ABDOMINAL WALL: No significant hernia is appreciated.? LYMPH NODES: Normal. VASCULAR: Unremarkable. PELVIC VISCERA: The uterus and adnexa are unremarkable. A well-positioned uterine device is noted. Multiple benign ovarian follicles are incidentally noted. OSSEOUS STRUCTURES: Unremarkable.? CT/CT abdomen pelvis w IV con IMPRESSION: No significant abnormality.? ? Fleischner guidelines were followed. Discharge Plan Discharge Clinical Impression: Left flank pain Patient Disposition: Home, Self-Care Instructions: Flank Pain (ED) Additional Instructions: discontinue taking the hold antibiotic Macrobid. Start this new antibiotic. Please follow-up with your primary care physician tomorrow. If you have any worsening or new symptoms, please return to the emergency room or call 911 Prescriptions: New levofloxacin 500 mg tablet 500 mg PO DAILY Qty: 6 0RF ketorolac 10 mg tablet 10 mg PO .b.i.d. PRN (Reason: pain) Qty: 7 0RF acetaminophen 500 mg capsule 1,000 mg PO Q6H PRN (Reason: fever or pain) Qty: 14 0RF No Action sumatriptan succinate 25 mg tablet See Rx Instructions PO .COMPLEX Qty: 7 0RF Rx Instructions: take 1 tab at onset of headache; if no relief may repeat 1 tab after at least 2 hrs; max = 4 tabs/24 hr PO nitrofurantoin monohyd/m-cryst [Macrobid] 100 mg capsule 100 mg PO Q12H 7 Days Qty: 14 0RF Rx Instructions: must administer with a meal/food omeprazole 40 mg capsule,delayed release(DR/EC) 40 mg PO DAILY PRN (Reason: Acid Reflux) montelukast 10 mg tablet 10 mg PO BEDTIME fluticasone propionate 50 mcg/actuation spray,suspension 1 spray intranasal BID PRN (Reason: Allergic Symptoms) Rx Instructions: administer into each nostril prazosin 2 mg capsule 2 mg PO BEDTIME PRN (Reason: Sleep) fluticasone propion-salmeterol [Advair HFA] 115-21 mcg/actuation HFA aerosol inhaler 2 puff inhalation Q12H PRN (Reason: Shortness Of Breath) topiramate 25 mg tablet 25 mg PO BEDTIME PRN (Reason: Headache) albuterol sulfate 90 mcg/actuation HFA aerosol inhaler 2 puff inhalation Q6H PRN (Reason: shortness of breath or wheezing) 30 Days Qty: 8.5 3RF
[2023-05-24 19:13] LABS: Alanine Aminotransferase 11 U/L (0-31); Albumin Level 4.5 g/dL (3.5-5.0); Alkaline Phosphatase 44 U/L (39-117); Anion Gap 14 (12-20); Aspartate Amino Transferase 14 U/L (5-31); Bilirubin Total 0.7 mg/dL (0.0-1.0); Blood Urea Nitrogen 7 mg/dL (9-16); Calcium 9.7 mg/dL (8.4-10.2); Carbon Dioxide 23 mmol/L (22-29); Chloride 101 mmol/L (96-108); Creatinine Clr Calc Pharmacy 100.4; Estimated Glomerular Filt Rate > 60; Glucose Random 116 mg/dL (60-115); Magnesium 1.8 mg/dL (1.6-2.6); Potassium 3.7 mmol/L (3.3-5.1); Sodium 134 mmol/L (135-145); Total Protein 7.8 g/dL (6.5-8.0)
[2023-05-24 20:25] VITALS: BP 99/60; PULSE 82; RESP 16; TEMP 37.7; O2SAT 97
--- NOTE | 2023-05-24 21:36 | PHA.MEDREC ---
Pharmacy Consult ? Medication Reconciliation Pharmacy has completed the medication reconciliation. Pt says she has not been taking any medications besides the macrobid, and that a lot of her prescriptions are on a PRN basis.
--- NOTE | 2023-05-24 22:42 | PC.NURSE ---
This press writer assumed care of this Pt at 1900. Pt reports 9/10 constant headache pressure feeling with fevers, nausea, and chills x yesterday. Pt denies any ABD pain, reports urinary frequency without pain/ burning. Pt ambulating to the BR with steady gait. Meds given as documented.
[2023-05-24 23:51] VITALS: BP 105/67; PULSE 78; RESP 16; TEMP 37.2; O2SAT 97
== END 2023-05-24 23:59 | disposition home or self-care (01) ==
PROVIDERS: Physician Assistant; Emergency Provider Emergency Medicine; PCP Internal Medicine
DX: R10.30 Lower abdominal pain, unspecified (principal); R50.9 Fever, unspecified; R07.89 Other chest pain; R10.2 Pelvic and perineal pain; N39.0 Urinary tract infection, site not specified; Z20.822 Contact with and (suspected) exposure to COVID-19; Z20.828 Contact with and (suspected) exposure to other viral communicable diseases; Z79.899 Other long term (current) drug therapy
CPT/HCPCS: 36415; 71045; 74177; 80053; 81003; 83605; 83735; 84484; 84702; 85025; 87040; 87502; 87635; 96361; 96374; 96375; 99284; 99285; J1885; J1956; J2405; Q9967

== ENCOUNTER 2023-11-29 15:46 | Outpatient (AMB) | payer MEDICAID, SELFPAY ==
[2023-11-29 15:46] VITALS: BP 120/70; PULSE 81; O2SAT 99; BMI 29.5
--- NOTE | 2023-11-29 15:46 | A.OFFPC_ITS ---
Vital Signs 11/29/23 15:46 Height 5 ft 6 in Weight 182 lb 8 oz BMI 29.5 BP 120/70 Blood Pressure Location Lt brachial Position Sitting Pulse 81 Pulse Source Pulse Oximeter Pulse Oximetry (%) 99 Oxygen Delivery Method Room Air Intake Visit Reasons: asthma, migraine Presidential Support Specialist Required: No Accompanied by: Self / Same As Patient Allergies No Known Allergies [No Known Allergies*] Allergy (Verified 11/29/23 16:42) Medication List - Last Reconciled 11/29/23 by Mina Paul MD acetaminophen 1,000 mg (2 x 500 mg) PO Q6H PRN albuterol sulfate 90 mcg/actuation 2 puffs inhalation Q6H PRN 30 days fluticasone propion-salmeterol 115-21 mcg/actuation (Advair HFA) 2 puffs inhalation Q12H PRN fluticasone propionate 50 mcg/actuation 1 spray intranasal BID PRN montelukast 10 mg PO QPM omeprazole 40 mg PO DAILY PRN sumatriptan succinate take 1 tab at onset of headache; if no relief may repeat 1 tab after at least 2 hrs; max = 4 tabs/24 hr PO topiramate 25 mg PO BEDTIME PRN Tobacco use date assessed: 11/29/23 Dental Screening Dental Screen Date: 11/29/23 Did you have a dental visit in the last 12 months?: Yes Did you have a dental problem in the last 6 months where you did not have access to dental care?: No Was dental information given to patient?: Patient has dentist HPI asthma, migraine HPI Details Patient comes in today for her follow-up visit States that she has been breaking out in acne lesions frequently on her face lately She currently has an IUD in place and is not sure if this is what is causing her face to break out in acne States that her IUD is going to be removed in a couple of weeks and she is instructed to check back if removing her IUD does not help address her acne issues Adds that she has been experiencing increased pain over her tailbone (coccyx) lately Does not recall any history of trauma or any recent injury involving her tailbone lately Patient also states that she has not been taking her Prazosin for a while now and she is currently not on any Rx for her anxiety and PTSD States that she has been doing well with regards to her PTSD/anxiety and mood disorder and she has not needed to take any Rx in a while now Adds that she has been experiencing recurrent tingling sensation in several fingers on both hands for the past few weeks She denies any headaches or dizziness Denies any chest pains, no SOB - states that her asthma has been well-controlled lately No nausea/vomiting, no abdominal pain No change in bowel habits noted Needs her Albuterol inhaler Rx refilled [facility] Medical History Vitamin D deficiency Allergic rhinitis Migraine Asthma Anxiety Overweight (BMI 25.0-29.9) Surgical History (Reviewed 12/02/23 @ 04: by Mina Paul MD) History of tonsillectomy Family History (Reviewed 12/02/23 @ 04: by Mina Paul MD) Maternal Grandmother Breast cancer Father Medical history unknown Mother Medical history unknown Maternal Grandfather No problems noted. Paternal Grandfather Cancer Colon cancer Brother In good health Brother In good health Social History Housing: House Alcohol intake: current Alcohol intake frequency: holidays/special occasions only Patient Tobacco Use Status: Never used Tobacco e-Cigarette/Vaping Use: Never Used Second Hand Smoke Exposure: No service: No Current occupational status: employed Current occupation: [employer] Sexual orientation: Straight/Heterosexual Gender identity: Female Cognitive needs: No Hearing needs: No Vision needs: No Female Reproductive History Menstrual Age of Menarche: 12 Questionnaire PHQ-9 Over the last 2 weeks, how often have you been bothered by any of the following problems? 1. Little interest or pleasure in doing things: nearly every day 2. Feeling down, depressed, or hopeless: nearly every day 3. Trouble falling or staying asleep, or sleeping too much: nearly every day 4. Feeling tired or having little energy: nearly every day 5. Poor appetite or overeating: nearly every day 6. Feeling bad about yourself - or that you are a failure or have let yourself or your family down: nearly every day 7. Trouble concentrating on things, such as reading the newspaper or watching television: nearly every day 8. Moving or speaking so slowly that other people could have noticed. Or the opposite - being so fidgety or restless that you have been moving around a lot more than usual: nearly every day 9. Thoughts that you would be better off or of hurting yourself in some way: not at all Total score: 24 Depression Screening Interpretation: Positive Depression Screening Follow-up: Existing condition and In treatment Depression Screening Done: Yes 75017 - PHQ-9 Billing: Yes Source: Developed by Drs. Jacky Ledesma, Matilda Portillo, Sanya Contreras and colleagues, with an educational mukund from [employer] Thrive Questionnaire Date Thrive assessed: 11/29/23 I am a: Patient What is your living situation today?: I have a steady place to live Within the past 12 months, did the food you bought not last and you didn't have the money to get more?: Never true Within the past 12 months, did you worry whether your food would run out before you got money to buy more?: Never true Do you have trouble paying for medicines?: No Do you have trouble getting transportation to medical appointments?: No Do you have trouble paying your heating and electricity bill?: No Do you have trouble taking care of your child, family member or friend?: No Do you have trouble with day-to-day activities such as bathing, preparing meals, shopping, managing finances, etc.?: No Are you currently unemployed and looking for a job?: No Are you interested in more education?: No Please select the resources that you would like help with: None Currently or been in a relationship where the following occur: no concerns reported AUDIT C Alcohol Use Questionnaire (AUDIT-C) 1. How often do you have a drink containing alcohol?: Never 3. How often do you have six or more drinks on one occasion?: Never Total Score: 0 Score Reviewed/Action Taken: Yes PHI-7 AMB Questionnaire PHI-7 Date PHI - 7 assessed: 11/29/23 Feeling nervous, anxious, or on edge: 1 = Several days Not being able to stop or control worryin = Several days Worrying too much about different things: 0 = Not at all Trouble relaxin = Not at all Being so restless that it is hard to sit still: 0 = Not at all Becoming easily annoyed or irritable: 0 = Not at all Feeling afraid as if something awful might happen: 0 = Not at all Total PHI-7 score (0-4 normal; 5-9 mild; 10-14 moderate; 15-21 severe): 2 Source: Developed by Drs. Jacky Ledesma, Matilda Portillo, Sanya Contreras and colleagues, with an educational mukund from [employer] Review of Systems Const Denies chills, Denies fatigue, Denies fever(s) and Denies headache(s) ENT Denies dysphagia, Denies dizziness, Denies otalgia, Denies headache(s), Denies neck pain, Denies odynophagia and Denies sore throat Card Denies chest pain, Denies palpitations and Denies dyspnea Resp Denies cough and Denies dyspnea GI Denies abdominal pain, Denies constipation, Denies dysphagia, Denies heartburn, Denies diarrhea, Denies nausea, Denies odynophagia and Denies vomiting Denies difficulty voiding, Denies nocturia and Denies dysuria Musc Details: increased pain over her tailbone lately Denies neck pain and Reports tingling (on and off in several fingers on both hands lately) Skin/Breast Reports acne (recurrent on her face lately) Neuro Denies dizziness, Denies headache(s) and Reports tingling (on and off in several fingers on both hands lately) Psych Denies anxiety and Denies depression Endo Denies fatigue and Denies palpitations Physical exam (Primary Care) Vital Signs: Last Vital Signs Pulse 81 11/29/23 15:46 BP 120/70 11/29/23 15:46 Pulse Ox 99 11/29/23 15:46 Oxygen Delivery Method Room Air 11/29/23 15:46 BMI result Body Mass Index 29.5 Tobacco/Smoking Status: Tobacco use Status Tobacco use date assessed 11/29/23 11/29/23 15:48 Patient Tobacco Use Status Never used Tobacco 11/29/23 15:48 e-Cigarette/Vaping Use Never Used 11/29/23 15:48 PHQ-9: PHQ-9 Score PHQ-9: Total score 11/29/23 16:53 Depression Screening Interpretation: Positive Depression Screening Follow-up: Existing condition and In treatment Thrive Assessment: Date of Thrive Assessment Date Thrive assessed 11/29/23 11/29/23 15:48 Currently or been in a relationship where the following occur: no concerns reported Const General: no acute distress and alert HENMT Ears: TM's normal bilaterally and EAC's normal Throat: Yes posterior oropharynx normal and Yes tonsils normal (no TP congestion) Neck Neck: Yes no lymphadenopathy and Yes supple Resp Auscultation: clear to auscultation bilaterally, no rales and no wheezes Cardio Rate: regular rate Rhythm: regular rhythm Heart sounds: no murmurs GI Palpation (GI): Soft to palpation, nontender and No hepatosplenomegaly present Back/Spine/Pelvis Coccyx: no swelling and Coccyx tenderness present Skin General skin exam: no rashes or lesions noted Extrem General: Yes no clubbing, cyanosis or edema Right upper extremity: wrist Details: tenderness (mild) Location: not of the volar wrist, Tinel's negative and Phalen's negative Left upper extremity: wrist ((+) mild tenderness on deep palpation over the volar aspect of left wrist) Assessment and Plan Assessment & Plan (1) Coccygeal pain: Code(s): M53.3 - Sacrococcygeal disorders, not elsewhere classified Plan: Will send patient for x-rays of her sacrum/coccyx OG for further evaluation (2) Asthma: Code(s): J45.909 - Unspecified asthma, uncomplicated Qualifiers: Asthma severity: moderate Asthma persistence: persistent Asthma complication type: uncomplicated Qualified Code(s): J45.40 - Moderate persistent asthma, uncomplicated Plan: Stable/controlled Continue Advair HFA 115-21 2 inhalations BID, Montelukast 10 mg Q PM and Albuterol HFA 2 inhalations Q 6 hours PRN (3) Allergic rhinitis: Code(s): J30.9 - Allergic rhinitis, unspecified Qualifiers: Allergic rhinitis trigger: pollen Allergic rhinitis seasonality: seasonal Qualified Code(s): J30.1 - Allergic rhinitis due to pollen Plan: Continue Fluticasone 50 mcg nasal spray QD PRN and Montelukast 10 mg Q PM (4) Migraine: Code(s): G43.909 - Migraine, unspecified, not intractable, without status migrainosus Qualifiers: Intractability: not intractable Migraine type: unspecified Status migrainosus presence: without status migrainosus Qualified Code(s): G43.909 - Migraine, unspecified, not intractable, without status migrainosus Plan: Much better controlled with prophylactic Tx Continue Topiramate 25 mg Q HS and Sumatriptan 50 mg PRN Reinforced avoidance of any potential migraine triggers (5) Paresthesia of both hands: Code(s): R20.2 - Paresthesia of skin Plan: Suspect CTS Will send patient for EMG & NCV of both upper extremities for further evaluation (6) GERD (gastroesophageal reflux disease): Code(s): K21.9 - Gastro-esophageal reflux disease without esophagitis Qualifiers: Esophagitis presence: without esophagitis Qualified Code(s): K21.9 - Gastro-esophageal reflux disease without esophagitis Plan: Dietary restrictions reinforced Continue Omeprazole 40 mg QD (7) Vitamin D deficiency: Code(s): E55.9 - Vitamin D deficiency, unspecified Plan: Continue Vitamin D3 2000 units QD (8) Insomnia: Code(s): G47.00 - Insomnia, unspecified Qualifiers: Insomnia type: unspecified Qualified Code(s): G47.00 - Insomnia, unspecified Plan: Sleep hygiene reinforced Patient used to take Prazosin 2 mg Q HS but states that she has needed to take this in a while now and that she has been sleeping much better with no Rx needed lately (9) Anxiety: Code(s): F41.9 - Anxiety disorder, unspecified Plan: Patient also has not needed to take her Sertraline 50 mg QD in a while now - states that she stopped taking her Rx a few months ago (10) Overweight (BMI 25.0-29.9): Code(s): E66.3 - Overweight Plan: Reinforced diet/exercise as tolerated/lose weight Plan To return as scheduled next month for her annual physical examination Orders: Orders NE electromyogram (EMG) 11/29/23 R20.2 - Paresthesia of skin NE nerve conduction velocity 11/29/23 R20.2 - Paresthesia of skin XR sacrum coccyx min 2V 11/29/23 M53.3 - Sacrococcygeal disorders, not elsewhere classified Medications: Refilled albuterol sulfate 90 mcg/actuation 2 puffs inhalation Q6H 30 days PRN 8.5 grams 5RF shortness of breath or wheezing J45.909 - Unspecified asthma, uncomplicated Coding Level of Care Code Est Pt Level 4 (18456) Diagnoses Coccygeal pain M53.3 Moderate persistent asthma without complication J45.40 Asthma severity: moderate Asthma persistence: persistent Asthma complication type: uncomplicated Seasonal allergic rhinitis due to pollen J30.1 Allergic rhinitis trigger: pollen Allergic rhinitis seasonality: seasonal Migraine without status migrainosus, not intractable, unspecified migraine type G43.909 Intractability: not intractable Migraine type: unspecified Status migrainosus presence: without status migrainosus Paresthesia of both hands R20.2 Gastroesophageal reflux disease without esophagitis K21.9 Esophagitis presence: without esophagitis Vitamin D deficiency E55.9 Insomnia, unspecified type G47.00 Insomnia type: unspecified Anxiety F41.9 Overweight (BMI 25.0-29.9) E66.3
== END 2023-11-29 17:02 | disposition home or self-care (01) ==
PROVIDERS: PCP Internal Medicine; Visit Provider Internal Medicine
DX: M53.3 Sacrococcygeal disorders, not elsewhere classified (principal); J45.40 Moderate persistent asthma, uncomplicated; J30.1 Allergic rhinitis due to pollen; G43.909 Migraine, unspecified, not intractable, without status migrainosus; R20.2 Paresthesia of skin; K21.9 Gastro-esophageal reflux disease without esophagitis; E55.9 Vitamin D deficiency, unspecified; G47.00 Insomnia, unspecified; F41.9 Anxiety disorder, unspecified; E66.3 Overweight
CPT/HCPCS: 99214

== ENCOUNTER 2023-12-10 18:15 | Emergency (ER) | payer MEDICAID, SELFPAY ==
--- NOTE | ~2023-12-10 | XR_ITS ---
EXAMINATION:XR foot RT min 3V, XR ankle RT min 3V CLINICAL INFORMATION: Reason for Exam RLE pain s/p twisiting COMPARISON: 2020 TECHNIQUE: Frontal lateral oblique right foot, frontal lateral ankle, total 5 views. FINDINGS: Subtle radiolucent transverse line through the base of the second metatarsal concerning for possible hairline incomplete fracture. All other tarsal and metatarsal bones are intact. Toes are normal.. Ankle mortise is preserved. Tibial plafond and talar dome are intact. Medial and lateral malleoli are properly aligned. Subtalar joint is normal. There is no osteolytic or osteoblastic lesions. XR/XR foot RT min 3V IMPRESSION: 1. Subtle radiolucent transverse line through the base of the second metatarsal concerning for possible hairline incomplete fracture. Please correlate with area of tenderness. May consider correlation with cross-sectional imaging CT scan if patient is symptomatic in that area. 2. No other fractures or dislocations.
--- NOTE | ~2023-12-10 | XR_ITS ---
EXAMINATION:XR foot RT min 3V, XR ankle RT min 3V CLINICAL INFORMATION: Reason for Exam RLE pain s/p twisiting COMPARISON: 2020 TECHNIQUE: Frontal lateral oblique right foot, frontal lateral ankle, total 5 views. FINDINGS: Subtle radiolucent transverse line through the base of the second metatarsal concerning for possible hairline incomplete fracture. All other tarsal and metatarsal bones are intact. Toes are normal.. Ankle mortise is preserved. Tibial plafond and talar dome are intact. Medial and lateral malleoli are properly aligned. Subtalar joint is normal. There is no osteolytic or osteoblastic lesions. XR/XR ankle RT min 3V IMPRESSION: 1. Subtle radiolucent transverse line through the base of the second metatarsal concerning for possible hairline incomplete fracture. Please correlate with area of tenderness. May consider correlation with cross-sectional imaging CT scan if patient is symptomatic in that area. 2. No other fractures or dislocations.
[2023-12-10 19:44] VITALS: BP 136/86; PULSE 68; RESP 18; TEMP 36.2; O2SAT 100; BMI 29.8
--- NOTE | 2023-12-10 19:44 | ED.LOWEXIN ---
HPI - Extremity Injury (Lower) General Chief Complaint: Extremity Injury, Lower Stated Complaint: Rt ankle pain/broken? Time Seen by Provider: 12/10/23 23:26 Source: patient Mode of arrival: ambulatory Limitations: no limitations History of Present Illness HPI Narrative: Patient wononi chronic right ankle pain for years has eeen christy , 2 weeks ago patient twisted her right ankle at work since then been having pain which got worse again yes as she twisted the foot again. No significant swelling of the ankle no deformity, patient had MRI in 2020 and has received cortisone shots x2 been followed up by [facility] Home Medications Medication Instructions Recorded Confirmed fluticasone propionate 115 2 puff inhalation Q12H PRN 05/24/23 11/29/23 mcg-salmeterol 21 mcg/actuation Shortness Of Breath HFA inhaler (Advair HFA) fluticasone propionate 50 1 spray intranasal BID PRN 05/24/23 11/29/23 mcg/actuation nasal Allergic Symptoms spray,suspension omeprazole 40 mg capsule,delayed 40 mg PO DAILY PRN Acid Reflux 05/24/23 11/29/23 release topiramate 25 mg tablet 25 mg PO BEDTIME PRN Headache 05/24/23 11/29/23 Previous Rx's Medication Instructions Recorded sumatriptan succinate 25 mg tablet See Rx Instructions PO .COMPLEX #7 03/04/23 tabs acetaminophen 500 mg capsule 1,000 mg (2 x 500 mg) PO Q6H PRN 05/24/23 fever or pain #14 caps montelukast 10 mg tablet 10 mg PO QPM #90 tabs 10/24/23 albuterol sulfate 90 mcg/actuation 2 puff inhalation Q6H PRN 11/29/23 aerosol inhaler shortness of breath or wheezing 30 days #8.5 grams tramadol 50 mg tablet 50 mg PO Q6H PRN pain #20 tabs 12/10/23 Allergies Allergy/AdvReac Type Severity Reaction Status Date / Time No Known Allergies Allergy Verified 11/29/23 16:42 [No Known Allergies*] Review of Systems Review of Systems: Yes all other systems are reviewed and are negative PMFSH Past Medical History Medical History Vitamin D deficiency Allergic rhinitis Migraine Asthma Anxiety Overweight (BMI 25.0-29.9) Surgical History History of tonsillectomy Family History Family History Maternal Grandmother Breast cancer Father Medical history unknown Mother Medical history unknown Maternal Grandfather No problems noted. Paternal Grandfather Cancer Colon cancer Brother In good health Brother In good health Social History Social History Housing: House Alcohol intake: current Alcohol intake frequency: holidays/special occasions only Patient Tobacco Use Status: Never used Tobacco e-Cigarette/Vaping Use: Never Used Second Hand Smoke Exposure: No Advance Directives: No Advance Directives Information Provided: No service: No Current occupational status: employed Current occupation: [employer] Sexual orientation: Straight/Heterosexual Gender identity: Female Cognitive needs: No Hearing needs: No Vision needs: No Physical Exam Vital Signs: Vital Signs: Last Vital Signs Temp 98 F 12/10/23 22:00 Pulse 69 12/10/23 22:00 Resp 20 12/10/23 22:00 BP 104/67 12/10/23 22:00 Pulse Ox 100 12/10/23 22:00 O2 Del Method Room Air 12/10/23 22:00 BMI result Body Mass Index 29.8 Extrem: Ankle/foot/toe images: 1. Diffuse tenderness no swelling no effusion good range of movement no focal tenderness of metatarsals neurovascular intact Course Course Course Narrative: RME: 28 year-old female w/ PMHx GERD migraines, asthma, presenting to the ED c/o right ankle pain x2 weeks s/p twisting and hearing a pop w/worsening since yesterday Ambulating w/limping gait XRs ordered Full HPI, ROS and PE to be performed by primary ED provider. Medications Administered Discontinued Medications Generic Name Dose Route Start Last Admin Trade Name Freq PRN Reason Stop Dose Admin Oxycodone HCl 10 mg 12/10/23 23:56 12/11/23 00:38 Oxycodone Hcl Immed Release 5 Mg Tablet PO 12/10/23 23:57 Not Given ONCE ONE Tramadol HCl 50 mg 12/11/23 00:42 12/11/23 00:49 Tramadol Hcl 50 Mg Tablet PO 12/11/23 00:43 50 mg ONCE ONE Administration Medical Decision Making Medical Decision Making [facility] Narrative: Patient with chronic ankle pain with minor injury no signs of significant injury x-ray negative for fracture except for 2nd metatarsal possible fracture but patient did not have any significant pain at that location patient did have MRI of the right ankle in 2020 no fracture was seen at that time patient ambulating steady gait will discharge patient home on ibuprofen advised to follow with Podiatry which she had scheduled already Independent Interpretation I performed an independent interpretation of an: Plain X-Ray Radiology Impression Discussion of test interpretation with radiology: I have reviewed the radiologist's reading. 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 Prescriptions: New tramadol 50 mg tablet 50 mg PO Q6H PRN (Reason: pain) Qty: 20 0RF No Action sumatriptan succinate 25 mg tablet See Rx Instructions PO .COMPLEX Qty: 7 0RF Rx Instructions: take 1 tab at onset of headache; if no relief may repeat 1 tab after at least 2 hrs; max = 4 tabs/24 hr PO montelukast 10 mg tablet 10 mg PO QPM Qty: 90 1RF omeprazole 40 mg capsule,delayed release(DR/EC) 40 mg PO DAILY PRN (Reason: Acid Reflux) fluticasone propionate 50 mcg/actuation spray,suspension 1 spray intranasal BID PRN (Reason: Allergic Symptoms) Rx Instructions: administer into each nostril fluticasone propion-salmeterol [Advair HFA] 115-21 mcg/actuation HFA aerosol inhaler 2 puff inhalation Q12H PRN (Reason: Shortness Of Breath) topiramate 25 mg tablet 25 mg PO BEDTIME PRN (Reason: Headache) acetaminophen 500 mg capsule 1,000 mg PO Q6H PRN (Reason: fever or pain) Qty: 14 0RF albuterol sulfate 90 mcg/actuation HFA aerosol inhaler 2 puff inhalation Q6H PRN (Reason: shortness of breath or wheezing) 30 Days Qty: 8.5 5RF Referrals: Robert Santos MD [Physician] - 1 week Stand Alone Forms: Work/School Release Interventions: ED Discharge Assessment Last Done: 12/11/23 00:54 Discharge Date/Time: 12/11/23 00:54
[2023-12-10 22:00] VITALS: BP 104/67; PULSE 69; RESP 20; TEMP 36.6; O2SAT 100
[2023-12-11] MEDS: traMADoL HCL 50 MG TABLET PO (00:49)
== END 2023-12-11 00:54 | disposition home or self-care (01) ==
PROVIDERS: Emergency Provider Internal Medicine; PCP Internal Medicine
DX: S93.401A Sprain of unspecified ligament of right ankle, initial encounter (principal); X50.1XXA Overexertion from prolonged static or awkward postures, initial encounter; Y93.9 Activity, unspecified; Y92.89 Other specified places as the place of occurrence of the external cause; Y99.0 Civilian activity done for income or pay
CPT/HCPCS: 73610; 73630; 99283

== ENCOUNTER 2023-12-18 12:45 | Outpatient (AMB) | payer MEDICAID, SELFPAY ==
--- NOTE | 2023-12-18 12:52 | MHC.OFFVIS ---
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 The rash is on her cheeks bilaterally and it is warm to touch. She is using the eczema cream. She reports never having acne in her teens. IUD inserted January 2023. [facility] Medical History Vitamin D deficiency Allergic rhinitis Migraine Asthma Anxiety Overweight (BMI 25.0-29.9) Surgical History History of tonsillectomy Family History Maternal Grandmother Breast cancer Father Medical history unknown Mother Medical history unknown Maternal Grandfather No problems noted. Paternal Grandfather Cancer Colon cancer Brother In good health Brother In good health Social History Housing: House Alcohol intake: current Alcohol intake frequency: holidays/special occasions only Patient Tobacco Use Status: Never used Tobacco e-Cigarette/Vaping Use: Never Used Second Hand Smoke Exposure: No service: No Current occupational status: employed Current occupation: [employer] Sexual orientation: Straight/Heterosexual Gender identity: Female Cognitive needs: No Hearing needs: No Vision needs: No Female Reproductive History Menstrual Age of Menarche: 12 Review of Systems Const All systems reviewed & are unremarkable except as noted in HPI and below Endo Reports no additional complaints Physical Exam Vital Signs: Last Vital Signs BP 110/74 12/18/23 12:55 BMI result Body Mass Index 29.0 Const General: cooperative, healthy appearing and no acute distress HEENT Other: Bilateral cheek erythema and papules Psych Appearance: well kempt Attitude: cooperative Thought process: Normal thought process present Assessment & Plan Assessment & Plan (1) Skin rash: Code(s): R21 - Rash and other nonspecific skin eruption Plan Discussed: Skin rash-multiple causative factors including rosacea, medication induced acne, or unknown etiology. I do not agree with removal of the IUD today I encouraged her to have a Dermatology consult to have a proper diagnosis of her facial rash prior to any decision of removing an IUD. All of her questions and concerns were addressed to the best of my ability and shared decision making. She is agreeable to the plan of care. Return to the office in March 2024 for annual or p.r.n. as needed. Orders: Referrals Dermatology Referral R21 - Rash and other nonspecific skin eruption Coding Level of Care Code Est Pt Level 3 (13069) Diagnoses Skin rash R21
[2023-12-18 12:55] VITALS: BP 110/74; BMI 29.0
== END 2023-12-18 13:46 | disposition home or self-care (01) ==
LOC: HO.HWS 12:45
PROVIDERS: PCP Internal Medicine; Visit Provider Advanced Practice Midwife
DX: R21 Rash and other nonspecific skin eruption (principal)
CPT/HCPCS: 99213

== ENCOUNTER → 2023-12-18 12:45 | Outpatient (BNVA) | payer MEDICAID, SELFPAY | PROVIDERS: PCP Internal Medicine; Visit Provider Advanced Practice Midwife | DX: R21 Rash and other nonspecific skin eruption (principal); Z97.5 Presence of (intrauterine) contraceptive device | CPT/HCPCS: 99212 ==

== ENCOUNTER 2024-03-24 15:17 | Outpatient (AMB) | payer OTHER, SELFPAY ==
--- NOTE | 2024-03-24 15:22 | A.OFFVIS_ITS ---
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 Doing well with no concerns: Acne since the IUD was placed, she has a follow up with Dermatology. Is hoping to have a plan later this year and requests the IUD be removed today if possible due to her limited time off work. She tries to eat healthy and stays active with exercise. Regular monthly menses, with a Kyleena. Currently is sexually active. She denies vaginal itching and irritation. STI screening offered; she declined. Family history of colon and breast cancer-grandparents, no family history of ovarian cancer. Last pap smear negative, due this year. [facility] Medical History (Updated 03/24/24 @ 15:45 by Roshni Matthews CNM) Vitamin D deficiency Allergic rhinitis Migraine Asthma Anxiety Overweight (BMI 25.0-29.9) Surgical History History of tonsillectomy Family History Maternal Grandmother Breast cancer Father Medical history unknown Mother Medical history unknown Maternal Grandfather No problems noted. Paternal Grandfather Cancer Colon cancer Brother In good health Brother In good health Social History Housing: House Alcohol intake: current Alcohol intake frequency: holidays/special occasions only Patient Tobacco Use Status: Never used Tobacco e-Cigarette/Vaping Use: Never Used Second Hand Smoke Exposure: No service: No Current occupational status: employed Current occupation: [employer] Sexual orientation: Straight/Heterosexual Gender identity: Female Cognitive needs: No Hearing needs: No Vision needs: No Female Reproductive History Menstrual Age of Menarche: 12 Date of last menstrual period: 03/03/24 control method: progestin IUCD (Kyleena 02/07) Total pregnancies: 1 Full term: 1 Number of Living Children: 1 Date of last pap smear: 10/28/20 (neg) Review of Systems Const All systems reviewed & are unremarkable except as noted in HPI and below Reports as per HPI Eyes Reports no additional complaints ENT Reports no additional complaints Card Reports no additional complaints Resp Reports no additional complaints GI Reports as per HPI and Reports no additional complaints Reports as per HPI Musc Reports no additional complaints Skin/Breast Reports as per HPI Neuro Reports no additional complaints Psych Reports no additional complaints Endo Reports no additional complaints Iban/Lymph Reports no additional complaints Aller/Immun Reports no additional complaints Physical Exam Vital Signs: Last Vital Signs BP 120/80 03/24/24 15:25 BMI result Body Mass Index 28.9 Const General: cooperative, healthy appearing, no acute distress, well developed and alert Orientation/consciousness: patient oriented x3 HEENT Head: Yes normal to inspection Eyes General: appearance normal, both eyes and all related structures Neck Neck: Yes normal visual inspection Thyroid: Thyroid normal Chest Chest palpation & inspection: normal inspection of the chest and other (no puckering, dimpling, peau de orange, retraction, discharge, masses) Breast/axilla inspection: normal inspection of the breasts Breast/axilla palpation: normal palpation of the breasts Resp Effort & Inspection: normal respiratory effort GI Inspection: Yes normal to inspection Palpation (GI): Soft to palpation Rectal Exam - Female: deferred General: Yes bladder normal to palpation External Female Exam: normal external appearance and normal appearance of the urethra Speculum Exam - Vagina: normal appearance of the vagina, normal palpation and normal vaginal discharge Speculum Exam - Cervix: normal appearance of the cervix, normal palpation and Other cervical findings present (IUD strings present) Bimanual exam- vagina & uterus: normal bimanual exam, normal palpation, uterine size normal, bladder normal to palpation, normal palpation and non-tender Bimanual Exam- Adnexa, other: no masses Skin General skin exam: no rashes or lesions noted Rashes: no rashes Neuro General: patient oriented x3 Cognition (Neuro): normal cognition Extrem General: Yes normal to inspection Psych Attitude: cooperative Thought process: Normal thought process present Office Procedures Contraception Insert/Removal Details Details: The patient presents today for a IUD removal. She is planning a future . She was counseled regarding the removal of her IUD. She was consented for the procedure along with anticipatory guidance for the removal and the consents form was signed. She desires to proceed with the IUD removal. IUD Removal Procedure: The patient was placed in the dorsal lithotomy position. A speculum was inserted vaginally and the cervix and strings were visualized at the os. A ring forcep was utilized, and the patient was asked to give a deep cough while the strings were grasped and gently tugged at the same time, removing the IUD device intact. Minimal bleeding was observed. All of the equipment was removed. The patient tolerated the procedure well and left the office in good condition. Advised to monitor menstrual cycle bleeding, use of backup method, to call if any concerns with menstrual cycle. 72533 - Removal Assessment & Plan Assessment & Plan (1) Well woman exam with routine gynecological exam: Code(s): Z01.419 - Encounter for gynecological examination (general) (routine) without abnormal findings Category: Medical (2) Encounter for IUD removal: Code(s): Z30.432 - Encounter for removal of intrauterine contraceptive device (3) Acne: Code(s): L70.9 - Acne, unspecified Qualifiers: Acne type: unspecified acne Qualified Code(s): L70.9 - Acne, unspecified Plan Discussed: Current recommendations for pap smears per ASCCP guidelines. Breast awareness and periodic breast exams. Maintain a healthy lifestyle including a well balanced diet and routine exercise. Start vitamins, Rx sent in. Advised to discuss with a mold builder that she is planning a future and not to start retinal treatment or doxycycline. Use of condoms, monitor menstrual cycle, use of a menstrual cycle avery, if late for menses to do a home test if positive follow up in office for care. Patient verbalizes understanding and agrees to the plan of care. She was given opportunity to ask questions and all questions were answered to the best of my ability. RTO in one year for annual senior cobol developer examination. This note is constructed using voice recognition software. While every effort has been made to ensure accuracy, accessioner errors may have been included. Orders: Orders Pap Smear Today Z01.419 - Encounter for gynecological examination (general) (routine) without abnormal findings Medications: New PNV,calcium 57-msad-anewj acid 27 mg iron- 1 mg ( Vitamins Plus Low Iron) 1 tab PO DAILY 90 tabs 4RF Coding Level of Care Code Est Pt Prev Care 18-39y(32605) Diagnoses Well woman exam with routine gynecological exam Z01.419 Encounter for IUD removal Z30.432 Acne, unspecified acne type L70.9 Acne type: unspecified acne CPT Codes Details - Contraception: 81772 - Removal ([id number]) Comment Add modifier for IUD removal
[2024-03-24 15:25] VITALS: BP 120/80; BMI 28.9
== END 2024-03-24 16:02 | disposition home or self-care (01) ==
LOC: HO.HWS 15:17
PROVIDERS: PCP Internal Medicine; Visit Provider Advanced Practice Midwife
DX: Z01.419 Encounter for gynecological examination (general) (routine) without abnormal findings (principal); L70.9 Acne, unspecified; Z30.432 Encounter for removal of intrauterine contraceptive device
CPT/HCPCS: 58301; 99395

== ENCOUNTER 2024-03-24 15:17 | Outpatient (REF) | payer OTHER, SELFPAY | END 2024-03-24 15:18 | disposition home or self-care (01) | LOC: HO.LNP 15:17 | PROVIDERS: PCP Internal Medicine; Visit Provider Advanced Practice Midwife | DX: Z30.432 Encounter for removal of intrauterine contraceptive device (principal) | CPT/HCPCS: 58301; 88142; 99395 ==

== ENCOUNTER 2025-06-21 13:15 | Outpatient (AMB) | payer OTHER, SELFPAY ==
--- NOTE | 2025-06-21 13:23 | A.OFFPC_ITS ---
Vital Signs 06/21/25 13:24 Height 5 ft 6 in Weight 183 lb 2 oz BMI 29.6 BP 110/66 Blood Pressure Location Lt brachial Position Sitting Pulse 86 Pulse Source Pulse Oximeter Pulse Oximetry (%) 98 Oxygen Delivery Method Room Air Intake Visit Reasons: 7months Certified Real Estate Appraiser Required: No Accompanied by: Self / Same As Patient Allergies oxycodone Allergy (Severe, Verified 06/21/25 13:57) Hives Medication List - Last Reconciled 06/21/25 by Mina Paul MD acetaminophen 1,000 mg (2 x 500 mg) PO Q6H PRN albuterol sulfate 90 mcg/actuation 2 puffs inhalation Q6H PRN 30 days fluticasone propion-salmeterol 115-21 mcg/actuation (Advair HFA) 2 puffs inhalation Q12H PRN fluticasone propionate 50 mcg/actuation 1 spray intranasal BID PRN montelukast 10 mg PO QPM omeprazole 40 mg PO DAILY PRN PNV,calcium 22-ldxc-mhcai acid 27 mg iron- 1 mg ( Vitamins Plus Low Iron) 1 tab PO DAILY sumatriptan succinate take 1 tab at onset of headache; if no relief may repeat 1 tab after at least 2 hrs; max = 4 tabs/24 hr PO topiramate 25 mg PO BEDTIME PRN tramadol 50 mg PO Q6H PRN Tobacco use date assessed: 06/21/25 Dental Screening Dental Screen Date: 06/21/25 Did you have a dental visit in the last 12 months?: Yes Did you have a dental problem in the last 6 months where you did not have access to dental care?: No Was dental information given to patient?: Patient has dentist HPI 7months HPI Details Patient comes in today for her follow-up visit States that she feels okay Reports that she delivered her 2nd child (baby girl) a few weeks ago on 05/16/25 States that she has been experiencing increased low back pains since giving and thinks that the epidural injection she received back then aggravated her lower back issues Reports no relief of her low back pain with OTC meds (Tylenol or ibuprofen) lately States that she has also tried some OTC pain patches and heating pads recently without much relief Notes that massaging her lower back helps temporarily She denies any headaches or dizziness Denies any chest pains, no increased shortness of breath No nausea/vomiting, no abdominal pain She reports experiencing increased constipation often lately Also needs a couple of her Rx refilled PFSH Medical History (Updated 06/28/25 @ 05:48 by Mina Paul MD) Constipation Vitamin D deficiency Allergic rhinitis Migraine Asthma Anxiety Overweight (BMI 25.0-29.9) Surgical History History of tonsillectomy Family History Maternal Grandmother Breast cancer Father Medical history unknown Mother Medical history unknown Maternal Grandfather No problems noted. Paternal Grandfather Cancer Colon cancer Brother In good health Brother In good health Social History Housing: House Alcohol intake: current Alcohol intake frequency: holidays/special occasions only Patient Tobacco Use Status: Never used Tobacco e-Cigarette/Vaping Use: Never Used Second Hand Smoke Exposure: No service: No Current occupational status: employed Current occupation: [employer] Sexual orientation: Straight/Heterosexual Gender identity: Female Cognitive needs: No Hearing needs: No Vision needs: No Female Reproductive History Menstrual Age of Menarche: 12 Questionnaire PHQ-9 Over the last 2 weeks, how often have you been bothered by any of the following problems? 1. Little interest or pleasure in doing things: not at all 2. Feeling down, depressed, or hopeless: not at all 3. Trouble falling or staying asleep, or sleeping too much: not at all 4. Feeling tired or having little energy: not at all 5. Poor appetite or overeating: not at all 6. Feeling bad about yourself - or that you are a failure or have let yourself or your family down: not at all 7. Trouble concentrating on things, such as reading the newspaper or watching television: not at all 8. Moving or speaking so slowly that other people could have noticed. Or the opposite - being so fidgety or restless that you have been moving around a lot more than usual: not at all 9. Thoughts that you would be better off or of hurting yourself in some way: not at all Total score: 0 Depression Screening Interpretation: Negative Depression Screening Done: Yes 90982 - PHQ-9 Billing: Yes Source: Developed by Drs. Jacky Ledesma, Matilda Portillo, Sanya Cnotreras and colleagues, with an educational mukund from [email or web address]. Thrive Questionnaire Date Thrive assessed: 06/21/25 I am a: Patient What is your living situation today?: I have a steady place to live Within the past 12 months, did the food you bought not last and you didn't have the money to get more?: I choose not to answer this question Within the past 12 months, did you worry whether your food would run out before you got money to buy more?: I choose not to answer this question Do you have trouble paying for medicines?: No Do you have trouble getting transportation to medical appointments?: No Do you have trouble paying your heating and electricity bill?: No Do you have trouble taking care of your child, family member or friend?: No Do you have trouble with day-to-day activities such as bathing, preparing meals, shopping, managing finances, etc.?: No Are you currently unemployed and looking for a job?: No Are you interested in more education?: No Please select the resources that you would like help with: None Currently or been in a relationship where the following occur: I choose not to answer THRIVE Score: 0 AUDIT C Alcohol Use Questionnaire (AUDIT-C) 1. How often do you have a drink containing alcohol?: Never 3. How often do you have six or more drinks on one occasion?: Never Total Score: 0 Score Reviewed/Action Taken: Yes PHI-7 AMB Questionnaire PHI-7 Date PHI - 7 assessed: 06/21/25 Feeling nervous, anxious, or on edge: 1 = Several days Not being able to stop or control worryin = Several days Worrying too much about different things: 0 = Not at all Trouble relaxin = Not at all Being so restless that it is hard to sit still: 0 = Not at all Becoming easily annoyed or irritable: 0 = Not at all Feeling afraid as if something awful might happen: 0 = Not at all Total PHI-7 score (0-4 normal; 5-9 mild; 10-14 moderate; 15-21 severe): 2 Source: Developed by Drs. Jacky Ledesma, Matilda Portillo, Sanya Contreras and colleagues, with an educational mukund from [email or web address]. Review of Systems Const Denies chills, Denies fatigue, Denies fever(s) and Denies headache(s) ENT Denies dysphagia, Denies dizziness, Denies otalgia, Denies headache(s), Denies neck pain, Denies odynophagia and Denies sore throat Card Denies chest pain, Denies palpitations and Denies dyspnea Resp Denies chest congestion, Denies cough and Denies dyspnea GI Denies abdominal pain, Reports constipation (increased lately), Denies dysphagia, Denies heartburn, Denies diarrhea, Denies nausea, Denies odynophagia and Denies vomiting Denies difficulty voiding, Denies nocturia, Denies dysuria and Denies urinary urgency Musc Reports back pain (over the lower back - see HPI) and Denies neck pain Skin/Breast Denies rash Neuro Denies dizziness and Denies headache(s) Psych Denies anxiety and Denies depression Endo Denies fatigue and Denies palpitations Physical exam (Primary Care) Vital Signs: Last Vital Signs Pulse 86 06/21/25 13:24 BP 110/66 06/21/25 13:24 Pulse Ox 98 06/21/25 13:24 Oxygen Delivery Method Room Air 06/21/25 13:24 BMI result Body Mass Index 29.6 Tobacco/Smoking Status: Tobacco use Status Tobacco use date assessed 06/21/25 06/21/25 13:30 Patient Tobacco Use Status Never used Tobacco 06/21/25 13:30 e-Cigarette/Vaping Use Never Used 06/21/25 13:30 PHQ-9: PHQ-9 Score PHQ-9: Total score 0 06/21/25 14:01 Depression Screening Interpretation: Negative Thrive Assessment: Date of Thrive Assessment Date Thrive assessed 06/21/25 06/21/25 13:30 Currently or been in a relationship where the following occur: I choose not to answer Const General: no acute distress and alert HENMT Ears: TM's normal bilaterally and EAC's normal Throat: Yes posterior oropharynx normal and Yes tonsils normal (no TP congestion) Neck Neck: Yes supple and No lymphadenopathy Thyroid: Thyroid normal Resp Auscultation: clear to auscultation bilaterally, no rales and no wheezes Cardio Rate: regular rate Rhythm: regular rhythm Heart sounds: no murmurs GI Palpation (GI): Soft to palpation and nontender Auscultation: normal bowel sounds General: Yes no CVA tenderness Back/Spine/Pelvis Back: no CVA tenderness Thoracic/Lumbar Spine: paraspinal muscle tenderness on the left in the upper thoracic, in the mid lumbar and in the lower lumbar and No lumbar spinal tenderness Skin Rashes: no rashes Extrem General: Yes no clubbing, cyanosis or edema Coding Level of Care Code Est Pt Level 4 (11175) Diagnoses Left lumbar pain M54.50 Moderate persistent asthma without complication J45.40 Asthma complication type: uncomplicated Asthma persistence: persistent Asthma severity: moderate Constipation, unspecified constipation type K59.00 Constipation type: unspecified constipation type Seasonal allergic rhinitis due to pollen J30.1 Allergic rhinitis trigger: pollen Allergic rhinitis seasonality: seasonal Migraine without status migrainosus, not intractable, unspecified migraine type G43.909 Intractability: not intractable Migraine type: unspecified Status migrainosus presence: without status migrainosus Gastroesophageal reflux disease without esophagitis K21.9 Esophagitis presence: without esophagitis Vitamin D deficiency E55.9 Insomnia, unspecified type G47.00 Insomnia type: unspecified Anxiety F41.9 Overweight (BMI 25.0-29.9) E66.3 Additional Codes PHQ-9 - 46311 - PHQ-9 Billing: Yes ([id number]) Assessment & Plan Assessment & Plan (1) Left lumbar pain: Code(s): M54.50 - Low back pain, unspecified Category: Medical Plan: Will send patient for x-rays of the lumbar spine for further evaluation Have advised patient that based on the location of her current lower back symptoms, they are likely due to muscular spasms and if her x-rays come back negative, she may benefit from a trial of physical therapy (2) Asthma: Code(s): J45.909 - Unspecified asthma, uncomplicated Category: Medical Qualifiers: Asthma complication type: uncomplicated Asthma persistence: persistent Asthma severity: moderate Qualified Code(s): J45.40 - Moderate persistent asthma, uncomplicated Plan: Controlled Continue Advair HFA 115-21 mcg 2 inhalations BID and Albuterol HFA 1 to 2 inhalations Q 6 hours PRN (3) Constipation: Code(s): K59.00 - Constipation, unspecified Category: Medical Qualifiers: Constipation type: unspecified constipation type Qualified Code(s): K59.00 - Constipation, unspecified Plan: Reinforced increase oral fluids and dietary fiber intake Will start patient on Senna 8.6 mg QD PRN (4) Allergic rhinitis: Code(s): J30.9 - Allergic rhinitis, unspecified Category: Medical Qualifiers: Allergic rhinitis trigger: pollen Allergic rhinitis seasonality: seasonal Qualified Code(s): J30.1 - Allergic rhinitis due to pollen Plan: Continue Fluticasone 50 mcg nasal spray QD PRN and Montelukast 10 mg Q PM (5) Migraine: Comment: with aura Code(s): G43.909 - Migraine, unspecified, not intractable, without status migrainosus Category: Medical Qualifiers: Intractability: not intractable Migraine type: unspecified Status migrainosus presence: without status migrainosus Qualified Code(s): G43.909 - Migraine, unspecified, not intractable, without status migrainosus Plan: Controlled with prophylactic Tx Continue Topiramate 25 mg Q HS and Sumatriptan 50 mg PRN Reinforced avoidance of any potential migraine triggers (6) GERD (gastroesophageal reflux disease): Code(s): K21.9 - Gastro-esophageal reflux disease without esophagitis Category: Medical Qualifiers: Esophagitis presence: without esophagitis Qualified Code(s): K21.9 - Gastro-esophageal reflux disease without esophagitis Plan: Dietary restrictions reinforced Continue Omeprazole 40 mg QD (7) Vitamin D deficiency: Code(s): E55.9 - Vitamin D deficiency, unspecified Category: Medical Plan: Continue Vitamin D3 2000 units QD (8) Insomnia: Code(s): G47.00 - Insomnia, unspecified Category: Medical Qualifiers: Insomnia type: unspecified Qualified Code(s): G47.00 - Insomnia, unspecified Plan: Sleep hygiene reinforced Patient used to take Prazosin 2 mg Q HS but states that she has needed to take this in a while now and that she has been sleeping much better with no Rx needed lately (9) Anxiety: Code(s): F41.9 - Anxiety disorder, unspecified Category: Medical Plan: Patient also has not needed to take her Sertraline 50 mg QD in a while now - states that she stopped taking her Rx a few months ago (10) Overweight (BMI 25.0-29.9): Code(s): E66.3 - Overweight Category: Medical Plan: Reinforced diet/exercise as tolerated/lose weight Plan Follow-up in 4 months Orders: Orders XR lumbar spine 2-3V 06/21/25 M54.50 - Low back pain, unspecified Medications: New sennosides (senna) 8.6 mg PO BEDTIME PRN 30 caps 3RF constipation Changed From fluticasone propion-salmeterol 115-21 mcg/actuation 2 puffs inhalation Q12H PRN Shortness Of Breath J45.40 - Moderate persistent asthma, uncomplicated To fluticasone propion-salmeterol 115-21 mcg/actuation (Advair HFA) 2 puffs inhalation Q12H 12 grams 5RF 30 days J45.40 - Moderate persistent asthma, uncomplicated Refilled albuterol sulfate 90 mcg/actuation 2 puffs inhalation Q6H PRN 8.5 grams 5RF shortness of breath or wheezing 30 days J45.909 - Unspecified asthma, un complicated
[2025-06-21 13:24] VITALS: BP 110/66; PULSE 86; O2SAT 98; BMI 29.6
--- OUTSIDE RECORDS SUMMARY | 2025-06-21 13:33 | XMS_ITS | Encounter Summary ---
Author Organization [facility] Address [address] [place] [address] Phone Care Team Providers Care Civil Lawyer Name Role Phone Mina Paul MD Primary Care Provider [phone] [phone] Encounter Details Date Type Department Care Team (Late st Contact Info) Description 06/03/2024 Procedure Pass OR Admitting Dept - Virtual Department [address] [place] [address] Social History Tobacco Use Types Packs/Day Years Used Date Smoking Tobacco: Never Smokeless Tobacco: Never Alcohol Use Standard Drinks/Week Comments Yes 0 (1 standard drink = 0.6 oz pur e alcohol) couple per month at most Education Answer Date Recorded Are you interested in more education? Not on diaz e 03/15/2023 Are you concerned about learning? Not on file 03/15/2023 No 03/15/2023 No 03/15/2023 Digital Access Answer Date Recorded No 04/13/2023 No 04/13/2023 Reliable internet access at home? Not on file 04/13/2023 Device with a working camera? Not on file Comments No Sex and Gender Information Value Date Recorded Sex Assigned at Not on file Legal Sex Female 1:57 PM EDT Gender Identity Not on file Sexual Orientation Not on file documented as of this encounter Plan of Treatment Not on file documented as of this encounter Visit Diagnoses Not on filedocumented in this encounter Care Teams Civil Lawyer Relationship Specialty Start Date End Date Mina Paul MD [address] [place] [address] [place] [address] PCP - General Internal Medicine 03/01/21 documented as of this encounter Additional Source Comments The information contained in this document represents components of the legal health record. It is not the complete legal health record.[facility]
== END 2025-06-21 14:13 | disposition home or self-care (01) ==
LOC: HO.HMCH 13:15
PROVIDERS: PCP Internal Medicine; Visit Provider Internal Medicine
DX: M54.50 Low back pain, unspecified (principal); J45.40 Moderate persistent asthma, uncomplicated; K59.00 Constipation, unspecified; J30.1 Allergic rhinitis due to pollen; G43.909 Migraine, unspecified, not intractable, without status migrainosus; K21.9 Gastro-esophageal reflux disease without esophagitis; E55.9 Vitamin D deficiency, unspecified; G47.00 Insomnia, unspecified; F41.9 Anxiety disorder, unspecified; E66.3 Overweight

== ENCOUNTER → 2025-06-21 13:15 | Outpatient (BNVA) | payer OTHER, SELFPAY | PROVIDERS: PCP Internal Medicine; Visit Provider Internal Medicine | DX: J45.40 Moderate persistent asthma, uncomplicated (principal); M54.50 Low back pain, unspecified; K59.00 Constipation, unspecified; J30.1 Allergic rhinitis due to pollen; G43.909 Migraine, unspecified, not intractable, without status migrainosus; K21.9 Gastro-esophageal reflux disease without esophagitis; E55.9 Vitamin D deficiency, unspecified; G47.00 Insomnia, unspecified; F41.9 Anxiety disorder, unspecified; E66.3 Overweight; Z68.29 Body mass index [BMI] 29.0-29.9, adult; Z79.899 Other long term (current) drug therapy; Z13.31 Encounter for screening for depression; Z13.39 Encounter for screening examination for other mental health and behavioral disorders | CPT/HCPCS: 96127; 99212 ==

== ENCOUNTER 2025-07-16 10:16 | Outpatient (REF) | payer OTHER, SELFPAY ==
--- NOTE | ~2025-07-16 | XR_ITS ---
EXAMINATION: XR LUMBAR SPINE 2-3 VIEWS HISTORY: M54.50 - Low back pain, unspecified COMPARISON: There are no prior studies for comparison. FINDINGS: AP, lateral, and coned down views of the lumbar spine are submitted. Osseous mineralization is normal. Five nonrib-bearing lumbar vertebral bodies are identified, maintaining normal height and alignment without evidence of fracture or spondylolisthesis. The intervertebral disc spaces are preserved. The posterior elements are intact. The visualized paraspinal soft tissues are unremarkable. XR/XR lumbar spine 2-3V IMPRESSION: Unremarkable examination of the lumbar spine. Electronically signed by: Jacky Encinas MD 07/16/2025 11:22 AM EDT
--- OUTSIDE RECORDS SUMMARY | 2025-07-16 10:54 | XMS_ITS | Encounter Summary ---
Author Organization [facility] Address [address] [place] [address] Phone Care Team Providers Care Sports Management Internship Name Role Phone Mina Paul MD Primary Care Provider [phone] [phone] Encounter Details Date Type Department Care Team (Late st Contact Info) Description 01/23/2024 Procedure Pass [facility], [address] [address] Social History Tobacco Use Types Packs/Day Years Used Date Smoking Tobacco: Never Smokeless Tobacco: Never Alcohol Use Standard Drinks/Week Comments Not Currently 0 (1 standard drink = 0.6 oz pur e alcohol) Education Answer Date Recorded Are you interested [...] on filedocumented in this encounter Care Teams Sports Management Internship Relationship Specialty Start Date End Date Mina Paul MD [address] [place] [address] [place] [address] PCP - General Internal Medicine 03/01/21 documented as of this encounter Additional Source Comments The information contained in this document represents components of the legal health record. It is not the complete legal health record.[facility]
--- OUTSIDE RECORDS SUMMARY | 2025-07-16 10:54 | XMS_ITS | Encounter Summary ---
Author Organization [facility] Address [address] [place] [address] Phone Care Team Providers Care Civil Service Worker Name Role Phone Mina Paul MD Primary Care Provider [phone] [phone] Encounter Details Date Type Department Care Team (Late st Contact Info) Description 06/03/2024 Procedure Pass OR Admitting Dept - Virtual Department 30 [place] [address] Social History Tobacco Use Types Packs/Day Years [...] filedocumented in this encounter Care Teams Civil Service Worker Relationship Specialty Start Date End Date Mina Paul MD [address] [place] [address] [place] [address] PCP - General Internal Medicine 03/01/21 documented as of this encounter Additional Source Comments The information contained in this document represents components of the legal health record. It is not the complete legal health record.[facility]
--- OUTSIDE RECORDS SUMMARY | 2025-07-16 10:54 | XMS_ITS | Encounter Summary ---
Author Organization [facility] Address [address] [place] [address] Phone Care Team Providers Care Mine Safety Engineer Name Role Phone Mina Paul MD Primary Care Provider [phone] [phone] Encounter Details Date Type Department Care Team (Late st Contact Info) Description 03/29/2021 Ancillary Orders [facility],Outside Imaging [address] [place] [address] System, Provider Not In, [facility] [address] [address] Social History Tobacco Use Types Packs/Day Years Used Date Smoking Tobacco: Never Smokeless Tobacco: Never Alcohol Use Standard Drinks/Week Comments Not Currently 0 (1 standard drink = 0.6 oz pur e alcohol) Comments Unknown Sex and Gender Information Value Date Recorded Sex Assigned at Not on file Legal Sex Female 1:57 PM EDT Gender Identity Not on file Sexual Orientation Not on file documented as of this encounter Plan of Treatment Not on file documented as of this encounter Results * MRI Lower Extremity Outside (No Interpretation) (12/26/2020 12:00 AM EST) Narrative SYSTEMGENERATED, DOCUMENTATION - 03/29/2021 10:46 AM EDT This study is for PACS storage only and not for interpretation. us Provider Not In System PhD IMG OUTSIDE IMAGING W /OUT INTERPRETATION Final Result documented in this encounter Visit Diagnoses Not on filedocumented in this encounter Care Teams Mine Safety Engineer Relationship Specialty Start Date End Date Mina Paul MD [address] [place] [address] Dr [place], [place] [id number] PCP - General Internal Medicine 03/01/21 documented as of this encounter Additional Source Comments The information contained in this document represents components of the legal health record. It is not the complete legal health record.[facility]
--- OUTSIDE RECORDS SUMMARY | 2025-07-16 10:54 | XMS_ITS | Clinical Summary ---
Author Organization [facility] Address [address] [place] [address] Phone Care Team Providers Care Plant Safety Engineer Name Role Phone Mina Paul MD Primary Care Provider [phone] [phone] Allergies Active Allergy Reactions Criticality Noted Date Comments Oxycodone Hives,Itching 06/18/2024 Medications VENTOLIN HFA 90 mcg/actuation inhaler INHALE 2 PUFFS BY MOUTH EVERY 6 HOURS NEEDED FOR SHORTNESS OF BREATH OR WHEEZE Active cholecalciferol (VITAMIN D3) 2,000 unit tablet Take 1 tablet by mouth daily. Active fluticasone propionate (FLONASE) 50 mcg/actuation nasal spray Active omeprazole (PRILOSEC) 40 MG capsule Take 1 tablet by mouth daily. Active M-MASON PLUS 27 mg iron- 1 mg Tab tablet Take 1 tablet by mouth every morning. 4 Active SUMAtriptan (IMITREX) 25 MG tablet PLEASE SEE ATTACHED FOR DETAILED DIRECTIONS Active cetirizine (ZYRTEC) 5 MG tablet Take 5 mg by mouth daily. Active montelukast (SINGULAIR) 10 mg tablet Take 10 mg by mouth nightly at bedtime. Active aspirin 81 MG EC tablet Take 1 tablet (81 mg total) by mouth 2 (two) times a day for 28 days. 4 Active Additional Information Patient not taking.Reported on 06/18/2024 HYDROmorphone (DILAUDID) 2 MG tabletIndicatio ns:Osteochondra l lesion of talar dome Take 1 tablet (2 mg total) by mouth every 4 (four) hours as needed for pain (specific location in comments). 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 Social History Tobacco Use Types Packs/Day Years Used Date Smoking Tobacco: Never Smokeless Tobacco: Never Tobacco Cessation:Counseling Given: Not Answered Alcohol Use Standard Drinks/Week Comments Yes 0 [...] on file Sexual Orientation Not on file Last Filed Vital Signs Vital Sign Reading Time Taken Comments Blood Pressure 101/63 06/03/2024 3:28 PM EDT Pulse 77 06/03/2024 3:18 PM EDT Temperature 36.4 C (97.5 F) 06/03/2024 3:27 PM EDT Respiratory Rate 14 06/03/2024 1:20 PM EDT Oxygen Saturation 100% 06/03/2024 3:18 PM EDT Inhaled Oxygen Concentration - - Weight 83 kg (183 lb) 05/28/2024 2:48 PM EDT Height 167.6 cm (5' 6 ) 05/28/2024 2:48 PM EDT Body Mass Index 29.54 05/28/2024 2:48 PM EDT Plan of Treatment Health Maintenance Due Date Last Done Comments Adult Td,Tdap Booster 1994 DEPRESSION SCREENING 2006 HEPATITIS C SCREENING 2012 HIV ONE-TIME SCREENING (18-6 5 YEARS) 2012 PAP SMEAR 2015 COVID-19 VACCINE (2 2023-2 5 season) 2024 03/13/2021 SMOKING STATUS SCREENING (On ce After 26 Yrs) Completed 08/27/2024 HEPATITIS A VACCINES Aged Out No long er eligible based on patient's age to complete this topic HIB VACCINES Aged Out No longer eligi ble based on patient's age to complete this topic MENINGOCOCCAL VACCINES (ACWY) Aged Out No longer eligible based on patient's age to complete this topic MENINGOCOCCAL VACCINES (B) Aged Out N o longer eligible based on patient's age to complete this topic PNEUMOCOCCAL VACCINES (0-49 years) Aged Out No longer eligible based on patient's age to complete this topic Medical Devices Not on file [place] [address] [facility]CO [facility] [place] [address] [place] [address] [place] [address] [address] [place] [address] ACO ACO Care Teams Plant Safety Engineer Relationship Specialty Start Date End Date Mina Paul MD [address] [place] [address] [place] [address] PCP - General Internal Medicine 03/01/21 Additional Source Comments The information contained in this document represents components of the legal health record. It is not the complete legal health record.[facility]
== END 2025-07-16 10:17 | disposition home or self-care (01) ==
LOC: HO.XRAY 10:16
PROVIDERS: PCP Internal Medicine; Visit Provider Internal Medicine
DX: M54.50 Low back pain, unspecified (principal)
CPT/HCPCS: 72100

== ENCOUNTER → 2025-07-16 10:19 | Outpatient (BNV) | payer OTHER, SELFPAY | PROVIDERS: PCP Internal Medicine; Visit Provider Radiology Diagnostic Radiology | DX: M54.50 Low back pain, unspecified (principal) | CPT/HCPCS: 72100 ==

== ENCOUNTER 2025-08-11 15:26 | Outpatient (AMB) | payer OTHER, SELFPAY ==
--- NOTE | 2025-08-11 15:42 | A.OFFPC_ITS ---
Vital Signs 08/11/25 15:43 Height 5 ft 6 in Weight 184 lb 6 oz BMI 29.8 BP 130/72 Blood Pressure Location Lt brachial Position Sitting Pulse 93 Pulse Source Pulse Oximeter Temp 97.1 F Temp Source Temporal Artery Scan Pulse Oximetry (%) 98 Oxygen Delivery Method Room Air Intake Visit Reasons: review xrays Intake Note: Patient is here to follow up on Xrays results. Carrier Blower Required: No Senior Tableau Developer: Present Accompanied by: Child Allergies oxycodone Allergy (Severe, Verified 08/11/25 16:10) Hives Medication List - Last Reconciled 08/11/25 by Mina Paul MD acetaminophen 1,000 mg (2 x 500 mg) PO Q6H PRN albuterol sulfate 90 mcg/actuation 2 puffs inhalation Q6H PRN 30 days fluticasone propion-salmeterol 115-21 mcg/actuation (Advair HFA) 2 puffs inhalation Q12H 30 days fluticasone propionate 50 mcg/actuation 1 spray intranasal BID PRN montelukast 10 mg PO QPM omeprazole 40 mg PO DAILY PRN PNV,calcium 19-iilr-efwer acid 27 mg iron- 1 mg ( Vitamins Plus Low Iron) 1 tab PO DAILY sennosides (senna) 8.6 mg PO BEDTIME PRN sumatriptan succinate take 1 tab at onset of headache; if no relief may repeat 1 tab after at least 2 hrs; max = 4 tabs/24 hr PO topiramate 25 mg PO BEDTIME PRN tramadol 50 mg PO Q6H PRN Tobacco use date assessed: 08/11/25 Dental Screening Dental Screen Date: 06/21/25 HPI review xrays HPI Details Patient comes in today mainly to go over the results of her recent lumbar spine x-rays States that she continues to experience increased pain over her left lower back and this is continuing to affect her and limiting her in terms of her daily activities She had lumbar spine x-rays done a few weeks ago and would like to know how her x-rays came out and what she needs to do from here on to help resolve her low back pain States that she is not able to take any muscle relaxants to help with her symptoms she is currently still She denies any recent injury or trauma to her lower back No other acute complaints or symptoms are noted at present [facility] Medical History (Updated 08/15/25 @ 20:45 by Mina Paul MD) Constipation Vitamin D deficiency Allergic rhinitis Migraine Asthma Anxiety Overweight (BMI 25.0-29.9) Surgical History History of tonsillectomy Family History Maternal Grandmother Breast cancer Father Medical history unknown Mother Medical history unknown Maternal Grandfather No problems noted. Paternal Grandfather Cancer Colon cancer Brother In good health Brother In good health Social History Housing: House Alcohol intake: current Alcohol intake frequency: holidays/special occasions only Patient Tobacco Use Status: Never used Tobacco e-Cigarette/Vaping Use: Never Used Second Hand Smoke Exposure: No service: No Current occupational status: employed Current occupation: [employer] Sexual orientation: Straight/Heterosexual Gender identity: Female Cognitive needs: No Hearing needs: No Vision needs: No Female Reproductive History Menstrual Age of Menarche: 12 Questionnaire Thrive Questionnaire Date Thrive assessed: 06/21/25 I am a: Patient What is your living situation today?: I have a steady place to live Within the past 12 months, did the food you bought not last and you didn't have the money to get more?: I choose not to answer this question Within the past 12 months, did you worry whether your food would run out before you got money to buy more?: I choose not to answer this question Do you have trouble paying for medicines?: No Do you have trouble getting transportation to medical appointments?: No Do you have trouble paying your heating and electricity bill?: No Do you have trouble taking care of your child, family member or friend?: No Do you have trouble with day-to-day activities such as bathing, preparing meals, shopping, managing finances, etc.?: No Are you currently unemployed and looking for a job?: No Are you interested in more education?: No Please select the resources that you would like help with: None Currently or been in a relationship where the following occur: No concerns reported THRIVE Score: 0 AUDIT C Alcohol Use Questionnaire (AUDIT-C) 1. How often do you have a drink containing alcohol?: Never Total Score: 0 PHI-7 AMB Questionnaire PHI-7 Date PHI - 7 assessed: 06/21/25 Feeling nervous, anxious, or on edge: 0 = Not at all Not being able to stop or control worryin = Nearly every day Worrying too much about different things: 3 = Nearly every day Trouble relaxin = Nearly every day Being so restless that it is hard to sit still: 0 = Not at all Becoming easily annoyed or irritable: 0 = Not at all Feeling afraid as if something awful might happen: 0 = Not at all Total PHI-7 score (0-4 normal; 5-9 mild; 10-14 moderate; 15-21 severe): 9 Source: Developed by Drs. Jacky Ledesma, Matilda Portillo, Sanya Contreras and colleagues, with an educational mukund from [employer]. Review of Systems Const Denies chills, Denies fatigue, Denies fever(s) and Denies headache(s) ENT Denies dizziness, Denies headache(s), Denies neck pain and Denies sore throat Card Denies chest pain, Denies palpitations and Denies dyspnea Resp Denies chest congestion, Denies cough and Denies dyspnea GI Denies abdominal pain, Reports constipation, Denies heartburn, Denies diarrhea, Denies nausea and Denies vomiting Denies difficulty voiding, Denies nocturia, Denies dysuria and Denies urinary urgency Musc Reports back pain (over the left lower back ) and Denies neck pain Skin/Breast Denies rash Neuro Denies dizziness and Denies headache(s) Psych Denies anxiety and Denies depression Endo Denies fatigue and Denies palpitations Physical exam (Primary Care) Vital Signs: Last Vital Signs Temp 97.1 F 08/11/25 15:43 Pulse 93 08/11/25 15:43 BP 130/72 08/11/25 15:43 Pulse Ox 98 08/11/25 15:43 Oxygen Delivery Method Room Air 08/11/25 15:43 BMI result Body Mass Index 29.8 Tobacco/Smoking Status: Tobacco use Status Tobacco use date assessed 08/11/25 08/11/25 15:47 Patient Tobacco Use Status Never used Tobacco 08/11/25 15:42 e-Cigarette/Vaping Use Never Used 08/11/25 15:42 Thrive Assessment: Date of Thrive Assessment Date Thrive assessed 06/21/25 08/11/25 15:42 Currently or been in a relationship where the following occur: No concerns reported Const General: no acute distress and alert HENMT Throat: Yes posterior oropharynx normal and Yes tonsils normal (no TP congestion) Neck Neck: Yes supple and No lymphadenopathy Thyroid: Thyroid normal Resp Auscultation: clear to auscultation bilaterally, no rales and no wheezes Cardio Rate: regular rate Rhythm: regular rhythm Heart sounds: no murmurs GI Palpation (GI): Soft to palpation and nontender Auscultation: normal bowel sounds General: Yes no CVA tenderness Back/Spine/Pelvis Back: no CVA tenderness Thoracic/Lumbar Spine: paraspinal muscle tenderness on the left in the mid lumbar and in the lower lumbar and No lumbar spinal tenderness Skin Rashes: no rashes Extrem General: Yes no clubbing, cyanosis or edema Coding Level of Care Code Est Pt Level 3 (50795) Diagnoses Acute myofascial strain of lumbar region, sequela S39.012S Encounter type: sequela Assessment & Plan Assessment & Plan (1) Acute lumbar myofascial strain: Comment: LEFT side Code(s): S39.012A - Strain of muscle, fascia and tendon of lower back, initial encounter Category: Medical Qualifiers: Encounter type: sequela Qualified Code(s): S39.012S - Strain of muscle, fascia and tendon of lower back, sequela Plan: Have reassured patient that her recent lumbar spine x-rays came back completely normal Abdominal and pelvic x-rays done a couple of years ago on 05/24/2023 also showed normal osseous structures, reinforcing that she currently does not have any lumbar vertebral pathology that is causing her current left lower back pain Will go ahead and refer her to physical therapy for further evaluation and management Plan Follow-up as scheduled in October 2025 Orders: Orders PT Evaluation and Treatment 08/11/25 S39.012A - Strain of muscle, fascia and tendon of lower back, initial encounter
[2025-08-11 15:43] VITALS: BP 130/72; PULSE 93; TEMP 36.2; O2SAT 98; BMI 29.8
--- OUTSIDE RECORDS SUMMARY | 2025-08-11 17:49 | XMS_ITS | Encounter Summary ---
Author Organization [facility] Address [address] [place] [address] Phone Care Team Providers Care Ceo Name Role Phone Mina Paul MD Primary Care Provider [phone] [phone] Encounter Details Date Type Department Care Team (Late st Contact Info) Description 03/29/2021 Ancillary Orders [facility],Outside Imaging [address] [place] [address] System, Provider Not In, [facility] [address] [address] Social History Tobacco Use Types Packs/Day Years [...] on filedocumented in this encounter Care Teams Ceo Relationship Specialty Start Date End Date Mina Paul MD [address] [place] [address] Dr Peterson [place], [place] [phone] PCP - General Internal Medicine 03/01/21 documented as of this encounter Additional Source Comments The information contained in this document represents components of the legal health record. It is not the complete legal health record.[facility]
--- OUTSIDE RECORDS SUMMARY | 2025-08-11 17:49 | XMS_ITS | Encounter Summary ---
Author Organization [facility] Address [address] [place] [address] Phone Care Team Providers Care Software Engineer Sales Name Role Phone Mina Paul MD Primary Care Provider [phone] [phone] Encounter Details Date Type Department Care Team (Late st Contact Info) Description 06/03/2024 Procedure Pass [place] Admitting Dept - Virtual Department [address] [place] [address] Social History Tobacco Use Types Packs/Day Years [...] on filedocumented in this encounter Care Teams Software Engineer Sales Relationship Specialty Start Date End Date Mina Paul MD [address] [place] [address] [place] [address] PCP - General Internal Medicine 03/01/21 documented as of this encounter Additional Source Comments The information contained in this document represents components of the legal health record. It is not the complete legal health record.[facility]
--- OUTSIDE RECORDS SUMMARY | 2025-08-11 17:50 | XMS_ITS | Encounter Summary ---
Author Organization [facility] Address [address] [place] [address] Phone Care Team Providers Care Cotton Broker Name Role Phone Mina Paul MD Primary Care Provider [phone] [phone] Encounter Details Date Type Department Care Team (Late st Contact Info) Description 01/23/2024 Procedure Pass [facility], [address] [address] Social History Tobacco Use Types Packs/Day Years [...] on filedocumented in this encounter Care Teams Cotton Broker Relationship Specialty Start Date End Date Mina Paul MD [address] [place] [address] [place] [address] PCP - General Internal Medicine 03/01/21 documented as of this encounter Additional Source Comments The information contained in this document represents components of the legal health record. It is not the complete legal health record.[facility]
--- OUTSIDE RECORDS SUMMARY | 2025-08-11 17:50 | XMS_ITS | Clinical Summary ---
Author Organization [facility] Address [address] [place] [address] Phone Care Team Providers Care Manager Commercial Sales Name Role Phone Mina Paul MD Primary Care Provider +1 [phone] Allergies Active Allergy Reactions Criticality Noted Date [...] (18-6 5 YEARS) 2012 PAP SMEAR 2015 INFLUENZA VACCINE (#1) 2025 0, 07/31/2019 COVID-19 VACCINE (2 2024-2 6 season) 2025 03/13/2021 SMOKING STATUS SCREENING (On ce After [...] (0-49 years) Aged Out No longer eligible b ased on patient's age to complete this topic Medical Devices Not on file Insurance [place] [address] [place] [address] [place] [address] [place] [address] [place] [address] [place] [address] [facility] ACO Care Teams Manager Commercial Sales Relationship Specialty Start Date End Date Mina Paul MD [address] [place] [address] [place] [address] PCP - General Internal Medicine 03/01/21 Additional Source Comments The information contained in this document represents components of the legal health record. It is not the complete legal health record.[facility]
== END 2025-08-11 16:21 | disposition home or self-care (01) ==
LOC: HO.HMCH 15:26
PROVIDERS: PCP Internal Medicine; Visit Provider Internal Medicine
DX: S39.012S Strain of muscle, fascia and tendon of lower back, sequela (principal)

== ENCOUNTER → 2025-08-11 15:26 | Outpatient (BNVA) | payer OTHER, SELFPAY | PROVIDERS: PCP Internal Medicine; Visit Provider Internal Medicine | DX: S39.012S Strain of muscle, fascia and tendon of lower back, sequela (principal) | CPT/HCPCS: 99212 ==

== ENCOUNTER 2025-09-22 14:59 | Emergency (ER) | payer OTHER, SELFPAY ==
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
[2025-09-22 15:06] VITALS: BP 109/67; BP 119/59; PULSE 101; PULSE 94; RESP 18; TEMP 36.9; O2SAT 97; BMI 30.7
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
[2025-09-22] MEDS: Lidocaine 4 % Patch ADH..PATCH 1 PATCH TRANSDERMA (16:34)
[2025-09-22 17:38] VITALS: BP 109/72; PULSE 77; RESP 18; TEMP 36.8; O2SAT 97
--- OUTSIDE RECORDS SUMMARY | 2025-09-22 18:20 | XMS_ITS | Encounter Summary ---
Author Organization [facility] Address [address] [place] [id number] Phone Care Team Providers Care Extra Gang Supervisor Name Role Phone Mina Paul MD Primary Care Provider [phone] Encounter Details Date Type Department Care Team (Late st Contact Info) Description 03/29/2021 Ancillary Orders [facility],Outside Imaging [address] [place] [address] System, Provider Not In, [facility] [address] [address] Social History Tobacco Use Types Packs/Day Years [...] on filedocumented in this encounter Care Teams Extra Gang Supervisor Relationship Specialty Start Date End Date Mina Paul MD [address] [place] [address] Dr [address] [place], [place] [id number] PCP - General Internal Medicine 03/01/21 documented as of this encounter Additional Source Comments The information contained in this document represents components of the legal health record. It is not the complete legal health record.[facility]
--- OUTSIDE RECORDS SUMMARY | 2025-09-22 18:20 | XMS_ITS | Encounter Summary ---
Author Organization [facility] Address [address] [place] [phone] Phone Care Team Providers Care Doctor Of Medicine Name Role Phone Mina Paul MD Primary Care Provider [phone] Encounter Details Date Type Department Care Team (Late st Contact Info) Description 06/03/2024 Procedure Pass OR Admitting Dept - Virtual Department [address] [place] [address] Social History Tobacco Use Types Packs/Day Years [...] on filedocumented in this encounter Care Teams Doctor Of Medicine Relationship Specialty Start Date End Date Mina Paul MD [address] [place] [address] [place] [id number] PCP - General Internal Medicine 03/01/21 documented as of this encounter Additional Source Comments The information contained in this document represents components of the legal health record. It is not the complete legal health record.[facility]
--- OUTSIDE RECORDS SUMMARY | 2025-09-22 18:20 | XMS_ITS | Clinical Summary ---
Author Organization [facility] Address [address] [place] [phone] Phone Care Team Providers Care Diesel Fleet Mechanic Name Role Phone Mina Paul MD Primary Care Provider [phone] Allergies Active Allergy Reactions Criticality Noted Date [...] Devices Not on file Insurance [place] [place] [address] [place] [address] [place] [address] [place] [address] [place] [place] [address] A[address] [facility] ACO Care Teams Diesel Fleet Mechanic Relationship Specialty Start Date End Date Mina Paul MD [address] [place] [address] [place] [address] PCP - General Internal Medicine 03/01/21 Additional Source Comments The information contained in this document represents components of the legal health record. It is not the complete legal health record.[facility]
--- OUTSIDE RECORDS SUMMARY | 2025-09-22 18:20 | XMS_ITS | Encounter Summary ---
Author Organization [facility] Address [address] [place] [phone] Phone Care Team Providers Care Club Car Attendant Name Role Phone Mina Paul MD Primary Care Provider [phone] Encounter Details Date Type Department Care Team (Late st Contact Info) Description 01/23/2024 Procedure Pass [facility], [address] [address] Social History Tobacco Use Types Packs/Day Years [...] on filedocumented in this encounter Care Teams Club Car Attendant Relationship Specialty Start Date End Date Mina Paul MD [address] [place] [address] [place] [address] PCP - General Internal Medicine 03/01/21 documented as of this encounter Additional Source Comments The information contained in this document represents components of the legal health record. It is not the complete legal health record.[facility]
--- OUTSIDE RECORDS SUMMARY | 2025-09-22 18:20 | XMS_ITS | Data Portability ---
Author Organization [place] - [facility], [id number] Address [address] [place] [address] Assessment No assessment recorded. Plan of Treatment Reminders Order Date Submit Date Provider Last Modified By Organization Details Last Modified Time Details Appointments None recorded. Lab None recorded. Referral emergency medicine referral 2022 023 [email or web address] Not available 08:11:29 Procedures None recorded. Surgeries None recorded. Imaging None recorded. Medication Orders None recorded. Patient TargetsNo targets recorded. Patient Instructions Encounter Date Encounter Id Patient Instructions Last Modified By Organization Details Last Modified Time 04/04/2023 [id number] PE Pretest Probability is 0 [email or web address] Not available 04/04/2023 14:34:02 Reason for Referral Emergency Medicine Referral for Pleuritic pain dyspnea and chest pain Referring Physician: Beatris Spann, Urgent Care, Encounter Date: 04/04/2023 Problems Name Problem SNOMED Code Status Onset Date Resolution Date Notes Provider Name and Address Organization Details Recorded Time Anxiety 30613461 Active 023 IRIS COUVERTIE R null, [place] - [facility] 3 14:10:51 Depressive disorder 24958490 Active 023 IRIS COUVERTIE R null, [place] - [facility] 3 14:10:58 Asthma 262365146 Active 023 IRIS COUVERTIE R null, [place] - [facility] 3 14:11:03 Migraine 07180598 Active 023 IRIS COUVERTIE R null, [place] - [facility] 3 14:11:23 Post-traumat ic stress disorder 52342293 Active 023 LUIS ALBERTO Connolly - [facility] 3 14:11:30 Problem Notes None recorded. Medical Equipment None Reported. Allergies No known drug allergies Medications Name Sig Start Date Stop Date Status Note LastModified by Organization Details LastModified Time doxycycline hyclate 100 mg capsule TAKE ONE CAPSULE BY MOUTH TWICE A DAY FOR 7 DAYS 04/04 completed Not Available Not Available Not Available prazosin 1 mg capsule TAKE 1 CAPSULE BY MOUTH AT BEDTIME FOR 30 DAYS 04/04 completed Not Available Not Available Not Available sumatriptan 25 mg tablet PLEASE SEE ATTACHED FOR DETAILED DIRECTION S active Not Available Not Available No t Available metronidazo le 0.75 % (37.5 mg/5 gram) vaginal gel USE 1 APPLICATO RFUL VAGINALLY AT BEDTIME FOR 5 DAYS 04/04 completed Not Available Not Available Not Available topiramate 25 mg tablet TAKE 1 TABLET BY MOUTH EVERY DAY AT BEDTIME FOR HEADACHE PROPHYLAX IS active Not Available Not Available No t Available omeprazole 40 mg capsule,del ayed release TAKE 1 CAPSULE BY MOUTH EVERY DAY active Not Available Not Available No t Available sertraline 25 mg tablet TAKE 1 TABLET BY MOUTH EVERY DAY 04/04 completed Not Available Not Available Not Available hydroxyzine HCl 25 mg tablet TAKE 1 TABLET BY MOUTH EVERY DAY AT BEDTIME NEEDED FOR ANXIETY 04/04 completed Not Available Not Available Not Available norethindro ne (contracept sari) 0.35 mg tablet TAKE 1 TABLET BY MOUTH EVERY DAY 04/04 completed Not Available Not Available Not Available ondansetron 4 mg disintegrat ing tablet TAKE 1 TABLET BY MOUTH TWICE A DAY NEEDED FOR NAUSEA AND VOMITING active Not Available Not Available No t Available fluticasone propionate 50 mcg/actuati on nasal spray,suspe nsion active Not Available Not Available Not Available sertraline 50 mg tablet TAKE 1 TABLET BY MOUTH EVERY DAY active Not Available Not Available No t Available prazosin 2 mg capsule TAKE 1 CAPSULE BY MOUTH EVERYDAY AT BEDTIME active Not Available Not Available No t Available naproxen 500 mg tablet TAKE 1 TABLET BY MOUTH TWICE A DAY active Not Available Not Available No t Available escitalopra m 5 mg tablet TAKE 1 TABLET BY MOUTH EVERY DAY active Not Available Not Available No t Available ProAir HFA 90 mcg/actuati on aerosol inhaler INHALE 2 PUFFS EVERY 6 HOURS NEEDED FOR SHORTNESS OF BREATH OR WHEEZING active Not Available Not Available No t Available Advair HFA 115 mcg-21 mcg/actuati on aerosol inhaler TAKE 2 PUFFS BY MOUTH EVERY 12 HOURS active Not Available Not Available No t Available Vitamin D3 50 mcg (2,000 unit) tablet TAKE 1 TABLET BY MOUTH EVERY DAY active Not Available Not Available No t Available COVID-19 At-Home Test kit FOLLOW INSTRUCTI ONS INCLUDED WITH THE PACKAGE. 04/04 completed Not Available Not Available Not Available Vitals Date Recorded Respiratory rate Oxygen saturation Oxygen saturation in Arterial blood by Pulse oximetry Heart rate Provider Name and Address Organization Details Last Updated DateTime 04/04/2023 22 /min 98 % 98 % 90 /min Beatris Spann MD [address] [place] [address] [place], [address] , [place] - [facility] 3 08:49:00 Date Recorded Oxygen saturation Oxygen saturation in Arterial blood by Pulse oximetry Pain severity - 0-10 verbal numeric rating [Score] - Reported Heart rate Respiratory rate Body temperature Systolic And Diastolic Provider Name and Address Organization Details Last Updated DateTime 3 100 % 100 % 0 80 /min 18 /min 98.1 [degF] 135/89 mm[Hg] JEANA HELM [place] - [facility] 3 12:17:00 Date Recorded Body height Body mass index (BMI) Body weight Provider Name and Address Organization Details Last Updated DateTime 04/04/2023 167.64 cm 28.7 kg/m2 51253.44 g ANNALISA ORDAZ [place] - [facility] 04/04/2023 14:09:25 Social History Question Answer Notes LastModified by Organizat ion Details LastModified Time Tobacco Smoking Status Never Smoker ANNALISA zamorano [place] - [facility] 04/04/2023 14:11:49 What Is Your Water Source? City Information not available 04/04/2023 What Is Your Heat Source? Other Information not available 04/04/2023 Have You Had Direct Contact, Or Contact During Intimacy, With Monkeypox Rash, Scabs, Or Body Fluids From A Person With Monkeypox? No Information not available 04/04/2023 Have You Recently Traveled Abroad? No Information not available 04/04/2023 Sex: Unknown Functional Status Question Answer Note LastModified by Organizat ion Details LastModified Time Do you use any illicit or recreational drugs? No Information not available 04/04/2023 Do you or have you ever used any other forms of tobacco or nicotine? No Information not available 04/04/2023 What is your level of alcohol consumption? None Information not available 04/04/2023 Mental Status None recorded. Family History Relationship Description Onset Age of this Age Resolved Age Notes LastModified by Organization Details LastModified Time Father No current problems or disability Not available 14:11:32 Mother No current problems or disability Not available 14:11:32 Medical History No medical history recorded. Gynecological History Statement/Question Response Date of LMP Is there any chance of ? No Obstetrics History GPAL:G 0 P 0 0 0 0 Past Encounters Encounter ID Performer Location Encounter Start Date Encounter Closed Date Diagnosis/Indication Diagnosis SNOMED-CT Code Diagnosis ICD10 Code Diagnosis IMO Codes Diagnosis Note [id number] [address] [place] [address] 09/20/2018 12:16:08 09/20/2018 13:10:35 [id number] [address] [place] [address] 10/23/2020 12:06:06 10/23/2020 16:49:49 [id number] Beatris Spann MD [address] [place] [address] 04/04/2023 12:11:48 04/05/2023 08:54:38 Left without being seen [id number] 9102 Z53.21 [id number] Beatris Spann [place] [address] [place] [address] 04/04/2023 13:37:38 04/04/2023 14:48:54 Dyspnea 605536146 R06.00 Shortness of breath with clear lungs Pleuritic pain 6367921 R 07.81 Chest pain with shortness of breath. which is not responding to albuterol inhaler.Na jannet congestion present but significan t shortness of breath without wheeze needs evaluation in the ER.O2 sat 98 with pulse 95Patient agrees with planExpect called to ED by Jeana GABRIEL Health Concerns Section Related Observation LastModified by Organization Detai ls LastModified Time None Recorded Concern Status LastModified by Organization Details LastModified Time None Recorded Advance Directives Directive None Recorded Payers Insurance Date Sequence Insurance Name Policy Number Policy Hernandez Covered Member ID Hernandez Member ID Guarantor Name 04/04/2023 1 [facility] [place] Claudia S Oritz Pollard [id number] Claudia S Castellano Pollard 04/04/2023 1 [employer] [id number] Claudia S Castellano [id number] Claudia S Castellano Pollard Notes Date Note Type Note Provider Name and Address Organization Details Recorded Time 04/04/2023 text/html 3 days of some nasal congestion with shortness of breath becoming progressively worse. Using Albuterol inhaler. Dyspnea with walking short distances. Chest pain anteriorly worse with deep breath.No history recent travel, OCP, no history Blood clots, no family history Coagulation disorders. feeling dizzy today Beatris Spann MD [address] [place], [address], [place] - [facility] 04/05/2023 08:53:40 04/04/2023 text/html Shortness of BreathReported by Patient Beatris Spann MD [address] [place], [address], [place] - [facility] 04/05/2023 08:54:37 OBGyn Episode No OBEpisode recorded.
[2025-09-22 18:34] VITALS: BP 109/72; PULSE 77; RESP 18; TEMP 36.8; O2SAT 97
== END 2025-09-22 18:34 | disposition home or self-care (01) ==
PROVIDERS: Emergency Provider Student in an Organized Health Care Education/Training Program; PCP Internal Medicine
DX: Z04.1 Encounter for examination and observation following transport accident (principal); M54.6 Pain in thoracic spine; M79.601 Pain in right arm; M54.2 Cervicalgia; V49.59XA Passenger injured in collision with other motor vehicles in traffic accident, initial encounter; Y93.89 Activity, other specified; Y92.413 State road as the place of occurrence of the external cause
CPT/HCPCS: 72072; 73060; 96372; 99283; 99284; J1885

== ENCOUNTER → 2025-09-22 16:03 | Outpatient (BNV) | payer OTHER, SELFPAY | PROVIDERS: Emergency Provider Student in an Organized Health Care Education/Training Program; PCP Internal Medicine; Visit Provider Radiology Diagnostic Radiology | DX: M54.6 Pain in thoracic spine (principal); M79.621 Pain in right upper arm; V89.2XXA Person injured in unspecified motor-vehicle accident, traffic, initial encounter | CPT/HCPCS: 72072; 73060 ==

== ENCOUNTER 2025-09-29 16:31 | Outpatient (AMB) | payer OTHER, SELFPAY ==
[2025-09-29 16:38] VITALS: BP 98/60; PULSE 78; RESP 18; O2SAT 98; BMI 29.9
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
--- OUTSIDE RECORDS SUMMARY | 2025-09-29 19:06 | XMS_ITS | Encounter Summary ---
Author Organization [facility] Address [address] [place] [address] Phone Care Team Providers Care Garbage Collector Supervisor Name Role Phone Mina Paul MD Primary Care Provider [phone] Encounter Details Date Type Department Care Team (Late st Contact Info) Description 01/23/2024 Procedure Pass [facility], [address] [address] Social History Tobacco Use Types Packs/Day Years [...] on filedocumented in this encounter Care Teams Garbage Collector Supervisor Relationship Specialty Start Date End Date Mina Paul MD [address] [place] [address] [place] [address] PCP - General Internal Medicine 03/01/21 documented as of this encounter Additional Source Comments The information contained in this document represents components of the legal health record. It is not the complete legal health record.[facility]
--- OUTSIDE RECORDS SUMMARY | 2025-09-29 19:06 | XMS_ITS | Encounter Summary ---
Author Organization [facility] Address [address] [place] [address] Phone Care Team Providers Care Spinning Lathe Operator Hydraulic Name Role Phone Mina Paul MD Primary Care Provider [phone] Encounter Details Date Type Department Care Team (Late st Contact Info) Description 06/03/2024 Procedure Pass [place] Admitting Dept - Virtual Department [address] [place] [address] Social History Tobacco Use Types Packs/Day Years [...] on filedocumented in this encounter Care Teams Spinning Lathe Operator Hydraulic Relationship Specialty Start Date End Date Mina Paul MD [address] [place] [address] [place] [address] PCP - General Internal Medicine 03/01/21 documented as of this encounter Additional Source Comments The information contained in this document represents components of the legal health record. It is not the complete legal health record.[facility]
--- OUTSIDE RECORDS SUMMARY | 2025-09-29 19:06 | XMS_ITS | Encounter Summary ---
Author Organization [facility] Address [address] [place] [address] Phone Care Team Providers Care Fast Food Cook Name Role Phone Mina Paul MD Primary Care Provider +1 [phone] Encounter Details Date Type Department Care Team (Late st Contact Info) Description 03/29/2021 Ancillary Orders [facility],Outside Imaging [address] [place] [address] System, Provider Not In, [facility] [address] [address] Social History Tobacco Use Types Packs/Day Years [...] on filedocumented in this encounter Care Teams Fast Food Cook Relationship Specialty Start Date End Date Mina Paul MD [address] [place] [address] Dr Peterson [place], [place] [phone] PCP - General Internal Medicine 03/01/21 documented as of this encounter Additional Source Comments The information contained in this document represents components of the legal health record. It is not the complete legal health record.[facility]
--- OUTSIDE RECORDS SUMMARY | 2025-09-29 19:06 | XMS_ITS | Data Portability ---
Author Organization [place] - [facility], [address] Address [address] [place] [address] Assessment No assessment recorded. Plan of Treatment [...] By Organization Details Last Modified Time 04/04/2023 [id number] PE Pretest Probability is 0 [email or web address] Not available 04/04/2023 14:34:02 Reason for Referral Emergency Medicine Referral for Pleuritic pain dyspnea and chest pain Referring Physician: Beatris Spann, Urgent Care, Encounter Date: 04/04/2023 Problems Name Problem SNOMED Code Status Onset Date Resolution Date Notes Provider Name and Address Organization Details Recorded Time Anxiety 96889721 Active 023 IRIS COUVERTIE R null, [place] - [facility] 3 14:10:51 Depressive disorder 49306794 Active 023 IRIS COUVERTIE R null, [place] - [facility] 3 14:10:58 Asthma 823450221 Active 023 IRIS COUVERTIE R null, [place] - [facility] 3 14:11:03 Migraine 22505811 Active 023 IRIS COUVERTIE R null, [place] - [facility] 3 14:11:23 Post-traumat ic stress disorder 41364039 Active 023 LUIS ALBERTO [facility] - [facility] [...] 98 % 90 /min Beatris Spann MD [address] [place] [address] [place], [address] , [place] - [facility] 3 08:49:00 [...] Updated DateTime 04/04/2023 167.64 cm 28.7 kg/m2 62830.44 g ANNALISA ORDAZ [place] - [facility] [...] ICD10 Code Diagnosis IMO Codes Diagnosis Note [id number] [address] [facility] [address] [place] [address] 09/20/2018 12:16:08 09/20/2018 13:10:35 [id number] [address] [address] [place] [address] 10/23/2020 12:06:06 10/23/2020 16:49:49 [id number] Beatris Spann MD [address] [place] [address] 04/04/2023 12:11:48 04/05/2023 08:54:38 Left without being seen [id number] 9102 Z53.21 [id number] Beatris Spann MD [address] [place] [address] 04/04/2023 13:37:38 04/04/2023 14:48:54 Dyspnea 425952209 R06.00 Shortness of breath with clear lungs Pleuritic pain 7302523 R 07.81 Chest pain with shortness of [...] Date Sequence Insurance Name Policy Number Policy Hernanedz Covered Member ID Hernandez Member ID Guarantor Name 04/04/2023 1 [facility] Claudia S Oritz Pollard [id number] Claudia S Castellano Pollard 04/04/2023 1 [employer] [id number] Claudia S Castellano [id number] Claudia S Castellano Pollard Notes Date Note [...] Beatris Spann MD [address] [place], [address], [place] [facility] 04/05/2023 08:53:40 04/04/2023 text/html Shortness of BreathReported by Patient Beatris Spann MD [address] [place], [address], [place] [facility] 04/05/2023 08:54:37 OBGyn Episode No OBEpisode recorded.
--- OUTSIDE RECORDS SUMMARY | 2025-09-29 19:06 | XMS_ITS | Clinical Summary ---
Author Organization [facility] Address [address] [place] [address] Phone Care Team Providers Care Credit Reporting Clerk Name Role Phone Mina Paul MD Primary Care Provider +1 [phone] Allergies Active Allergy Reactions Criticality Noted Date [...] Take 1 tablet by mouth daily. Active M- PLUS 27 mg iron- 1 mg Tab [...] (#1) 2025 0, 07/31/2019 COVID-19 VACCINE (2 - 2024-2 6 season) 2025 03/13/2021 SMOKING STATUS SCREENING (On ce After 26 Yrs) Completed 08/27/2024 HEPATITIS A VACCINES Aged Out No long er eligible based on patient's age to complete this topic HIB VACCINES Aged Out No longer eligi ble based on patient's age to complete this topic IPV VACCINES Aged Out No longer eligi ble [...] Medical Devices Not on file Insurance [place] [address] [place] [address] [place] [address] [place] [address] [place] [address] [place] [address] ACO [facility] ACO Care Teams Credit Reporting Clerk Relationship Specialty Start Date End Date Mina Paul MD [address] [place] [address] [place] [address] PCP - General Internal Medicine 03/01/21 Additional Source Comments The information contained in this document represents components of the legal health record. It is not the complete legal health record.[facility]
== END 2025-09-29 17:51 | disposition home or self-care (01) ==
LOC: HO.HMCH 16:31
PROVIDERS: PCP Internal Medicine
DX: M54.2 Cervicalgia (principal); V89.2XXA Person injured in unspecified motor-vehicle accident, traffic, initial encounter; M54.50 Low back pain, unspecified; M25.511 Pain in right shoulder

== ENCOUNTER 2025-10-25 14:24 | Outpatient (AMB) | payer OTHER, SELFPAY ==
[2025-10-25 14:49] VITALS: BP 116/74; PULSE 89; TEMP 36.2; O2SAT 98; BMI 30.6
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
--- OUTSIDE RECORDS SUMMARY | 2025-10-25 23:20 | XMS_ITS | Encounter Summary ---
Author Organization [facility] Address [address] [place] [address] Phone Care Team Providers Care Java Spring Developer Name Role Phone Mina Paul MD Primary Care Provider [phone] [phone] Encounter Details Date Type Department Care Team (Late st Contact Info) Description 03/29/2021 Ancillary Orders [facility],Outside Imaging [address] [place], [place] [id number] System, Provider Not In, [facility] [address] [address] Social History Tobacco Use Types Packs/Day Years [...] on filedocumented in this encounter Care Teams Java Spring Developer Relationship Specialty Start Date End Date Mina Paul MD [address] [place] [address] Dr Peterson [place], [place] [id number] PCP - General Internal Medicine 03/01/21 documented as of this encounter Additional Source Comments The information contained in this document represents components of the legal health record. It is not the complete legal health record.[facility]
--- OUTSIDE RECORDS SUMMARY | 2025-10-25 23:20 | XMS_ITS | Encounter Summary ---
Author Organization [facility] Address [address] [place] [address] Phone Care Team Providers Care Brusher Name Role Phone Mina Paul MD Primary Care Provider +1 [phone] Encounter Details Date Type Department Care Team (Late st Contact Info) Description 01/23/2024 Procedure Pass [facility], [address] [address] Social History Tobacco Use Types Packs/Day Years [...] on filedocumented in this encounter Care Teams Brusher Relationship Specialty Start Date End Date Mina Paul MD [address] [place] [address] [place] [address] PCP - General Internal Medicine 03/01/21 documented as of this encounter Additional Source Comments The information contained in this document represents components of the legal health record. It is not the complete legal health record.[facility]
--- OUTSIDE RECORDS SUMMARY | 2025-10-25 23:20 | XMS_ITS | Clinical Summary ---
Author Organization [facility] Address [address] [place] [address] Phone Care Team Providers Care Warehouse Specialist Name Role Phone Mina Paul MD Primary Care Provider +1 -[phone] Allergies Active Allergy Reactions Criticality Noted Date [...] VACCINE (#1) 2025 0, 07/31/2019 COVID-19 VACCINE (2024-2 6 season) 2025 03/13/2021 SMOKING STATUS SCREENING [...] Devices Not on file Insurance [place] [address] [place] [address] [place] [address] [place] [address] [place] [address] ACO [facility] A[facility] Care Teams Warehouse Specialist Relationship Specialty Start Date End Date Mina Paul MD [address] [place] [address] [place] [address] PCP - General Internal Medicine 03/01/21 Additional Source Comments The information contained in this document represents components of the legal health record. It is not the complete legal health record.[facility]
--- OUTSIDE RECORDS SUMMARY | 2025-10-25 23:20 | XMS_ITS | Encounter Summary ---
Author Organization [facility] Address [address] [place] [address] Phone Care Team Providers Care Technical Account Representative Name Role Phone Mina Paul MD Primary Care Provider [phone] [phone] Encounter Details Date Type Department Care Team (Late st Contact Info) Description 06/03/2024 Procedure Pass [place] Admitting Dept - Virtual Department [address] [place] [address] Social History Tobacco Use Types Packs/Day Years [...] on filedocumented in this encounter Care Teams Technical Account Representative Relationship Specialty Start Date End Date Mina Paul MD [address] [place] [address] [place] [address] PCP - General Internal Medicine 03/01/21 documented as of this encounter Additional Source Comments The information contained in this document represents components of the legal health record. It is not the complete legal health record.[facility]
--- OUTSIDE RECORDS SUMMARY | 2025-10-25 23:20 | XMS_ITS | Data Portability ---
Author Organization [place] - [facility], [address] Address [address] [place] [address] Assessment No assessment recorded. Plan of Treatment [...] By Organization Details Last Modified Time 04/04/2023 [id number] PE Pretest Probability is 0 [email or web address] Not available 04/04/2023 14:34:02 Reason for Referral Emergency Medicine Referral for Pleuritic pain dyspnea and chest pain Referring Physician: Beatris Spann, Urgent Care, Encounter Date: 04/04/2023 Problems Name Problem SNOMED Code Status Onset Date Resolution Date Notes Provider Name and Address Organization Details Recorded Time Anxiety 02609614 Active 023 IRIS COUVERTIE R null, [place] - [facility] 3 14:10:51 Depressive disorder 61792855 Active 023 IRIS COUVERTIE R null, [place] - [facility] 3 14:10:58 Asthma 572261305 Active 023 IRIS COUVERTIE R null, [place] - [facility] 3 14:11:03 Migraine 81930541 Active 023 IRIS COUVERTIE R null, [place] - [facility] 3 14:11:23 Post-traumat ic stress disorder 70445157 Active 023 LUIS ALBERTO [facility] - [facility] [...] Vitals Date Recorded Respiratory rate Oxygen saturation Heart rate Provider Name and Address Organization Details Last Updated DateTime 04/04/2023 22 /min 98 % 90 /min Beatris Spann MD [facility] [place], [address], [place] - [facility] 04/05/2023 08:49:00 Date Recorded Oxygen saturation Pain severity - 0-10 verbal numeric rating [Score] - Reported Heart rate Respiratory rate Body temperature Systolic And Diastolic Provider Name and Address Organization Details Last Updated DateTime 100 % 0 80 /min 18 /min 98.1 [degF] 135/89 mm[Hg] JEANA HELM [place] - [facility] 3 12:17:00 Date Recorded Body height Body mass index (BMI) Body weight Provider Name and Address Organization Details Last Updated DateTime 04/04/2023 167.64 cm 28.7 kg/m2 77404.44 g ANNALISA ORDAZ [place] - [facility] [...] ICD10 Code Diagnosis IMO Codes Diagnosis Note [id number] [facility] [place] [address] 09/20/2018 12:16:08 09/20/2018 13:10:35 [id number] [address] [address] [place] [address] 10/23/2020 12:06:06 10/23/2020 16:49:49 [id number] Beatris Spann [place] [address] [place] [address] 04/04/2023 12:11:48 04/05/2023 08:54:38 Left without being seen [id number] 9102 Z53.21 [id number] [place] [address] [place] [address] 04/04/2023 13:37:38 04/04/2023 14:48:54 Dyspnea 764990418 R06.00 Shortness of breath with clear lungs Pleuritic pain 2004415 R 07.81 Chest pain with shortness of [...] Hernandez Member ID Guarantor Name 04/04/2023 1 [facility] Claudia S Oritz Pollard [id number] Claudia S Castellano Pollard 04/04/2023 1 [employer] [id number] Claudia S Castellano [id number] Claudia S Castellano Pollard Notes Date Note [...] Beatris Spann MD [address] [place], [address], [place] - [facility] 04/05/2023 08:53:40 04/04/2023 text/html Shortness of BreathReported by Patient Beatris Spann MD [address] [place], [address], [place] - [facility] 04/05/2023 08:54:37 OBGyn Episode No OBEpisode recorded.
== END 2025-10-25 15:29 | disposition home or self-care (01) ==
LOC: HO.HMCH 14:24
PROVIDERS: PCP Internal Medicine; Visit Provider Internal Medicine
DX: J45.40 Moderate persistent asthma, uncomplicated (principal); K59.00 Constipation, unspecified; J30.1 Allergic rhinitis due to pollen; G43.909 Migraine, unspecified, not intractable, without status migrainosus; K21.9 Gastro-esophageal reflux disease without esophagitis; E55.9 Vitamin D deficiency, unspecified; M54.50 Low back pain, unspecified; G47.00 Insomnia, unspecified; F41.9 Anxiety disorder, unspecified; E66.3 Overweight

== ENCOUNTER → 2025-10-25 14:24 | Outpatient (BNVA) | payer OTHER, SELFPAY | PROVIDERS: PCP Internal Medicine; Visit Provider Internal Medicine | DX: J45.40 Moderate persistent asthma, uncomplicated (principal); K21.9 Gastro-esophageal reflux disease without esophagitis; K59.00 Constipation, unspecified; J30.1 Allergic rhinitis due to pollen; G43.909 Migraine, unspecified, not intractable, without status migrainosus; E55.9 Vitamin D deficiency, unspecified; M54.50 Low back pain, unspecified; G47.00 Insomnia, unspecified; F41.9 Anxiety disorder, unspecified; E66.3 Overweight; E78.00 Pure hypercholesterolemia, unspecified; R30.0 Dysuria; D64.9 Anemia, unspecified; Z68.30 Body mass index [BMI] 30.0-30.9, adult | CPT/HCPCS: 96127; 99212 ==